=== PATIENT | female | born 1965 | race African-American/Black ===

== ENCOUNTER 2024-05-17 21:31 | Emergency (ER) | payer SELFPAY ==
[2024-05-17 21:44] VITALS: BP 136/76; PULSE 93; RESP 15; TEMP 36.5; O2SAT 97
--- NOTE | 2024-05-17 21:44 | ECG_ITS ---
Test Date: 2024-05-17 21:51:23 Measurements Intervals [place] Rate: 96 P: 35 WI: 158 QRS: 33 QRSD: 85 T: 0 QT: 350 QTc: 443 Interpretive Statements SINUS RHYTHM NONSPECIFIC ST & T-WAVE ABNORMALITY No previous ECG available for comparison Electronically Signed On 05-18-2024 22:53:03 PROJECT ECONOMIST by Mattie Brizuela M.D.
--- NOTE | 2024-05-18 00:38 | PC.NURSE ---
Pt to intake nurse I am going to bow out, I am heading home.
--- OUTSIDE RECORDS SUMMARY | 2024-05-25 02:11 | XMS_ITS | Encounter Summary ---
Author Name [facility] Organization [facility] [place] Address [address] [place] [id number] Selected Encounter This section includes the information on record at [place] for the Encounter. Date/Time Encounter Type Encounter Description Reason Pro vider Source Jun 09, 2023 12:17 PM Outpatient Encounter TELEPHONE/ANCILLARY I[facility] Encounter Template Text not used by [facility] Encounter Notes: All associated encounter notes This section contains the clinical notes associated to the Encounter. Date/Time Encounter Note(s) Provider Source Jun 10, 2023 01:29 PM ADDENDUM: LOCAL TITLE: Addendum STANDARD TITLE: ADDENDUM DATE OF NOTE: JUN 10, 2023@13:29:47 ENTRY DATE: JUN 10, 2023@13:29:47 AUTHOR: SANTANA ESTEVEZ EXP COSIGNER: URGENCY: STATUS: COMPLETED CG called and requested to withdraw their application from the [employer] application process. Please cancel appointment. /ANAHI Sylvester LCSW Mobile Home Laborer Signed: 06/10/2023 13:30 Receipt Acknowledged By: 06/10/2023 13:58 /jamarcus/ LINA BEASLEY EARTH AUGER OPERATOR --- Original Document --- 06/09/23 [facility] TELEPHONE NOTE: Scheduled and CG assessments via telephone for 06/19/23 @ 12:30pm and 1:30pm. /ANAHI Sylvester LCSW Mobile Home Laborer Signed: 06/09/2023 12:18 Receipt Acknowledged By: * AWAITING SIGNATURE * WILIAN WANG 06/09/2023 13:42 /jamarcus/ LINA BEASLEY EARTH AUGER OPERATOR SANTANA ESTEVEZ [facility] Jun 09, 2023 12:17 PM CAREGIVER CERTIFIC ATE: LOCAL TITLE: CSP TELEPHONE NOTE STANDARD TITLE: CAREGIVER CERTIFICATE DATE OF NOTE: JUN 09, 2023@12:17 ENTRY DATE: JUN 09, 2023@12:17:48 AUTHOR: SANTANA ESTEVEZ EXP COSIGNER: URGENCY: STATUS: COMPLETED CSP TELEPHONE NOTE Has ADDENDA Scheduled Singer and CG assessments via telephone for 06/19/23 @ 12:30pm and 1:30pm. /jamarcus/ ANAHI Butler LCSW Mobile Home Laborer Signed: 06/09/2023 12:18 Receipt Acknowledged By: 06/10/2023 14:01 /es/ WILIAN WANG Mobile Home Laborer 06/09/2023 13:42 /jamarcus/ LINA BEASLEY EARTH AUGER OPERATOR 06/10/2023 ADDENDUM STATUS: COMPLETED CG called and requested to withdraw their application from the [employer] application process. Please cancel appointment. /jamarcus/ ANAHI Butler LCSW Mobile Home Laborer Signed: 06/10/2023 13:30 Receipt Acknowledged By: 06/10/2023 13:58 /jamarcus/ LINA BEASLEY EARTH AUGER OPERATOR SANTANA ESTEVEZ [facility]
--- OUTSIDE RECORDS SUMMARY | 2024-05-25 02:11 | XMS_ITS | Encounter Summary ---
Author Name [facility] Organization [facility] [place] Address [address] [place] [id number] Selected Encounter This section includes the information on record at [place] for the Encounter. Date/Time Encounter Type Encounter Description Reason Provider Source Jun 10, 2023 04:03 PM Outpatient Encounter TELEPHONE/ANCILLARY SANTANA ESTEVEZ [facility] Encounter Template Text not used by [place] Encounter Notes: All associated encounter notes This section contains the clinical notes associated to the Encounter. Date/Time Encounter Note(s) Provider Source Jun 11, 2023 09:09 AM ADDENDUM: LOCAL TITLE: Addendum STANDARD TITLE: ADDENDUM DATE OF NOTE: JUN 11, 2023@09:09:05 ENTRY DATE: JUN 11, 2023@09:09:07 AUTHOR: LINA BEASLEY EXP COSIGNER: URGENCY: STATUS: COMPLETED note was entered in error /jamarcus/ LINA BEASLEY ARTIFICIAL LIMB FITTER Signed: 06/11/2023 09:09 Receipt Acknowledged By: 06/11/2023 09:13 /jamarcus/ ANAHI Butler, SIDE PULLER Electronics System Mechanic --- Original Document --- 06/10/23 CSP DENIAL NOTE: Caregiver Support Program Denial Note Denial date: 06.10.2023 Denied from the Program of Comprehensive Assistance for Family Caregivers. The denied person is the Primary Family Caregiver applicant. Name of : Alex Ace The reason for denial is the and caregiver withdrew their application. Date of verbal notification of determination: 07.11.2023 Date determination letter was mailed: to be mailed 07.12.2023 The following information was provided: Appeal and Review Options Other: CG called and advised that after further discussion with , they determined that [place] did not meet the criteria for the program and would reapply when the required more care. [id number] Length of call: 2 minutes /ANAHI Sylvester LCSW Electronics System Mechanic Signed: 06/11/2023 09:05 LINA BEASLEY [facility] Jun 10, 2023 04:00 PM CAREGIVER CERTIFIC ATE: LOCAL TITLE: CSP DENIAL NOTE STANDARD TITLE: CAREGIVER CERTIFICATE DATE OF NOTE: JUN 10, 2023@16:00 ENTRY DATE: JUN 11, 2023@09:03:45 AUTHOR: SANTANA ESTEVEZ EXP COSIGNER: URGENCY: STATUS: COMPLETED CSP DENIAL NOTE Has ADDENDA Caregiver Support Program Denial Note Denial date: 06.10.2023 Denied from the Program of Comprehensive Assistance for Family Caregivers. The denied person is the Primary Family Caregiver applicant. Name of [place]: Alex Ace The reason for denial is the and caregiver withdrew their application. Date of verbal notification of determination: 07.11.2023 Date determination letter was mailed: to be mailed 07.12.2023 The following information was provided: Appeal and Review Options Other: CG called and advised that after further discussion with , they determined that [place] did not meet the criteria for the program and would reapply when the required more care. [id number] Length of call: 2 minutes /ANAHI Sylvester LCSW Electronics System Mechanic Signed: 06/11/2023 09:05 06/11/2023 ADDENDUM STATUS: COMPLETED note was entered in error /curly BEASLEY ARTIFICIAL LIMB FITTER Signed: 06/11/2023 09:09 Receipt Acknowledged By: 06/11/2023 09:13 /ANAHI Sylvester LCSW Electronics System Mechanic 06/11/2023 ADDENDUM STATUS: COMPLETED Correction: This is the corrected note, this note was not entered in error. /ANAHI Sylvester LCSW Electronics System Mechanic Signed: 06/11/2023 09:16 SANTANA ESTEVEZ [facility]
--- OUTSIDE RECORDS SUMMARY | 2024-05-25 02:11 | XMS_ITS | Encounter Summary ---
Author Name [facility] Organization [facility] Address [address] [place] [address] Selected Encounter This section includes the information on record at [place] for the Encounter. Date/Time Encounter Type Encounter Description Reason Provider Source Jun 10, 2023 01:29 PM Outpatient Encounter TELEPHONE/ANCILLARY SANTANA ESTEVEZ [place] Encounter Template Text not used by [place]
--- OUTSIDE RECORDS SUMMARY | 2024-05-25 02:11 | XMS_ITS | Continuity of Care Document ---
Author Name [facility] Organization [facility] Care Team Providers Care Document Review Attorney Name Role Phone [facility] Unavailable Unavailable Problems Combined list of problems from Department of Defense and Veterans Affairs facilities. It does not include entries that were removed or entered in error. Problem Status Onset Date Problem Type Date of Resolution Comments Source vaginal caruncle Active Condition DoD vaginal cyst Active Condition DoD dysfunctional uterine bleeding Active Condition DoD dependent edema due to inactivity Active Condition DoD Test Negative Inactive Condition DoD noninfective leukorrhea Active Condition DoD female pelvic pain Active Condition DoD menses abnormal Active Condition DoD atypical chest pain Inactive Condition DoD atypical mycobacterial pneumonia Inactive Condition DoD upper respiratory infection Inactive Condition DoD hypokalemia Inactive Condition DoD obesity Active Condition DoD uterine neoplasm, benign leiomyoma Active Condition DoD breast lump or mass Active Condition DoD Uterine Enlargement Active Condition DoD visit for: screening exam for malignant neoplasm cervix Active Condition DoD urinary loss of control Active Condition DoD Overweight Active Condition DoD sudden redness of the skin (flushing) Active Condition DoD bacterial vaginosis Inactive Condition DoD excessive sweating Active Condition DoD disease of hair and hair follicles Active Condition DoD Laboratory Studies Active Condition DoD urinary incontinence Active Condition DoD anxiety Active Condition DoD perimenopause Active Condition DoD bronchitis Inactive Condition DoD hemorrhoids Active Condition DoD visit for: refer patient without exam or treatment Active Condition DoD blurry vision Active Condition Ophtha lmology consult placed to al for possible retinopathy DoD red blood in bowel movement (hematochezia) Inactive Condition Gastroenterol ogy consult placed. DoD visit for: screening exam malignant neoplasm breast Inactive Condition Mammogram or dered to complete screening. DoD common cold Active Condition Advised supportive and symptomatic care. Tylenol #3 based on nature/severity/progr ession of sx. Fluids, rest, hand washing. Continue Zyrtec. DoD Edema Active Condition see above DoD allergic rhinitis Active Condition Kaleb fragoso with yearly allergic rhinitis in spring time. Starting to get bad. Will give flonase and zyrtec which she states worked in the past. DoD migraine headache Active Condition DoD epicondylitis Active Condition DoD Other Physical Therapy Inactive Condition DoD skin disorders appendage hair follicle folliculitis Active Condition DoD upper respiratory infection acute Inactive Condition No decongest ant due to hTN - labile on meds. Antihistamine to see if any improvement. DoD visit for: issue repeat prescription Active Condition DoD hypertension systemic Active Condition DoD menorrhagia Active Condition DoD candidiasis vaginal Inactive Condition DoD palpitations Active Condition No abno rmalities noted on EKG, will refer to cardiology for further evaluation. DoD essential hypertension Active Condition Refilled Micard is and Hydrochlorothiazide (patient did not take this morning).BP's normally well controlled.Fasting labwork ordered.Call me for results DoD visit for: administrative purpose Inactive Condition DoD routine gynecological exam with cervical pap smear Inactive Condition PAP obtained. DoD vaginitis malik albicans Active Condition DoD depression Active Condition DoD cellulitis Inactive Condition Will brenton t for infection following bite. Diflucan for yeast infection pt gets with abx. [facility] Medications Combined list of outpatient medications from Department of Defense and Veterans Affairs facilities.Medications provided include 1) outpatient medications from the last 15 months, and 2) patient-reported medications. Medication Details Route Status Patient Instructions Prescription Expires Prescription Number Last Dispense Date Ordering Provider Order Date Order Qty Source BUPROPION XL (bupropion HCl), 150 MG, TAB ER 24H, ORAL, LUPIN PHARMACEU, 90 ea. BOTTLE Active [id number] 2023 90 Pharmac y Data Transac tion Service Facilit y dulaglutide 1.5 mg/0.5 mL subcutaneou s solution *NOTE DOSE* INJECT 1.5MG SUB-CUTA NEOUSLY EVERY 7 DAYS DIRECTED , # 2 mL, 3 total refill(s ), Acute Complet ed 07/30/2023 2.0 Ambulat ory Pharmac y fluconazole 100 mg oral tablet TAKE ONE TABLET BY MOUTH EVERY OTHER DAY DIRECTED , # 3 EA, 0 total refill(s ), Acute Complet ed 03/20/2023 3.0 Ambulat ory Pharmac y fluocinonid e 0.05% topical solution APPLY TOPICALL Y TWICE A DAY DIRECTED , # 60 mL, 11 total refill(s ), Acute Complet ed 07/30/2023 60.0 Ambulat ory Pharmac y fluticasone 50 mcg/inh nasal spray ADMINIST ER 2 SPRAYS INTO EACH NOSTRIL DAILY, # 48 g, 3 total refill(s ), Acute Complet ed 07/30/2023 48.0 Ambulat ory Pharmac y Hydrochloro thiazide (Oretic) Tablet 25 mg Oral Take orange juice or banana.T loreta with food/mil k.Avoid exposure to sun.Take or use exactly as directed . Active 06/03/2024 [id number] 2023 90 [employer] [facility] ([facility]) hydroCHLORO thiazide 25 mg tablet See Instruct ions, # 90 EA, 3 total refill(s ), Hard Stop Ordered 06/03/2024 90.0 Ambul at ory Pharmac y hydroCHLORO thiazide 25 mg tablet See Instruct ions, # 90 EA, 3 total refill(s ), Acute Complet ed 07/30/2023 90.0 Ambulat ory Pharmac y ketoconazol e 2% topical shampoo APPLY TOPICALL Y TWICE A WEEK DIRECTED , # 120 mL, 11 total refill(s ), Acute Complet ed 07/30/2023 120.0 Ambulat ory Pharmac y ketoconazol e topical 2% shampoo See Instruct ions, # 120 mL, 5 total refill(s ), Hard Stop Complet ed 01/23/2024 120.0 Ambulat ory Pharmac y metroNIDAZO LE 0.75% topical cream APPLY TOPICALL Y TWICE A DAY DIRECTED , # 45 g, 3 total refill(s ), Acute Complet ed 07/30/2023 45.0 Ambulat ory Pharmac y SKYRIZI PEN (risankizum ab-rzaa), 150 MG/ML, PEN INJCTR, SUBCUT, Kang[employer], 1 ml SYRINGE Active [id number] 2023 1 Pharmac y Data Transac tion Service Facilit y SKYRIZI PEN (risankizum ab-rzaa), 150 MG/ML, PEN INJCTR, SUBCUT, [employer], 1 ml SYRINGE Cancele d [id number] : 2023 0 Pharmac y Data Transac tion Service Facilit y SKYRIZI PEN (risankizum ab-rzaa), 150 MG/ML, PEN INJCTR, SUBCUT, [employer], 1 ml SYRINGE Active [id number] 4 2023 1 Pharmac y Data Transac tion Service Facilit y SKYRIZI PEN (risankizum ab-rzaa), 150 MG/ML, PEN INJCTR, SUBCUT, [employer], 1 ml SYRINGE Active [id number] 4 2023 1 Pharmac y Data Transac tion Service Facilit y SKYRIZI PEN (risankizum ab-rzaa), 150 MG/ML, PEN INJCTR, SUBCUT, [employer], 1 ml SYRINGE Active [id number] 3 2022 1 Pharmac y Data Transac tion Service Facilit y SKYRIZI PEN (risankizum ab-rzaa), 150 MG/ML, PEN INJCTR, SUBCUT, [employer], 1 ml SYRINGE Cancele d [id number] : 2022 0 Pharmac y Data Transac tion Service Facilit y SKYRIZI PEN (risankizum ab-rzaa), 150 MG/ML, PEN INJCTR, SUBCUT, [employer], 1 ml SYRINGE Active [id number] 2022 1 Pharmac y Data Transac tion Service Facilit y SKYRIZI PEN (risankizum ab-rzaa), 150 MG/ML, PEN INJCTR, SUBCUT, [employer], 1 ml SYRINGE Cancele d [id number] : 2022 0 Pharmac y Data Transac tion Service Facilit y tacrolimus 0.1% ointment [60g] See Instruct froylan, # 60 g, 3 total refill(s ), Hard Stop Ordered 11/13/2024 60.0 Ambul at ory Pharmac y telmisartan (U/D) 40 MG ORAL TAB Be careful if taking OTCs.Rashid e or use exactly as directed .Do not take if . Active 06/03/2024 [id number] 4 2023 90 [facility] ([facility]) telmisartan 40 mg tablet See Instruct ions, # 90 EA, 3 total refill(s ), Hard Stop Ordered 06/03/2024 90.0 Ambul at ory Pharmac y telmisartan 40 mg tablet See dose instruct ions in comments , # 90 EA, 3 total refill(s ), Acute Complet ed 07/30/2023 90.0 Ambulat ory Pharmac y Trulicity Pen 0.75 mg/0.5 mL [4EA=2mL] See dose instruct ions in comments , # 2 mL, 11 total refill(s ), Acute Complet ed 10/07/2023 2.0 Ambulat ory Pharmac y Allergies, Adverse Reactions, Alerts Combined list of allergies from Department of Defense and Veterans Affairs facilities. It does not include entries that were removed or entered in error. Substance Category Reaction Severity Reaction type Status Date Reported Comments Source sulfa drugs Propensity to adverse reactions to drug Unknown Active 6 Ambulatory [facility] Drug allergy (disorder) Unknown active 6 [facility] Immunizations Combined list of available immunizations from the Department of Defense and Veterans Affairs facilities. Immunization Series Date Given Administered By Site Reaction Lot Number CVX Code Drug Food Storeroom Clerk Status Comments Source hepatitis A adult vaccine 2003 zzLef t Arm [id number] 6 52 GlaxoSmithKli ne complet ed hepatitis A adult vaccine 01/27/04 Given Ambulat ory Pharmac y hepatitis A adult vaccine 2003 [id number] 6 52 GlaxoSmithKli ne complet ed hepatitis A adult vaccine 01/27/04 Given Ambulat ory Pharmac y hepatitis A vaccine, adult dosage 1 2003 Unknown, Provider [id number] 6 52 [employer] (SKB) complet ed hepatitis A vaccine, adult dosage [facility] Vital Signs Combined list of inpatient and outpatient Vital Signs from Department of Defense and Veterans Affairs, ranging from 12 months to all on record, depending upon the facility. Vital Sign Value Date Comments Source No data available for this section Ambulatory Pharmacy Encounters Combined list of: 1) Encounters from Department of Veterans Affairs facilities going back up to thelast 18 months. 2) Encounters from the Department of Defense facilities going back up to 280 months. Location Location Details Encounter Type Encounter Number Reason For Visit Attending Provider ADM Date DC Date Status Disposition Source [facility] ([facility]Mno tt [facility] Tm Blue) OUTPATIENT [id number] poss spider bite EMIL AQUINO 03/12 Released w/o Limitations [employer] [facility] ([facility])(S cott [facility] Tm Blue) [facility] ([facility]Sco tt [facility] Blue) OUTPATIENT [id number] high blood pressur e SIGRID HOSKINS 09/17 Released w/o Limitations [employer] [facility] ([facility]S cott [facility] Tm Blue) [facility](Pr imary Care QU) OUTPATIENT [id number] HAND AND FEET PAIN WITH SWELLIN G NELLY RUBY 08/09 Released w/o Limitations [facility]( Primary Care QU) [facility] TELE CONSULT [id number] MEDICAT ION ISSUE NELLY RUBY 08/12 [facility]( Primary Care QU) [facility](Pr imary Care QU) OUTPATIENT [id number] med refill SPRING LUJAN 09/20 Released w/o Limitations [facility]( Primary Care QU) [facility](Pr imary Care QU) OUTPATIENT [id number] vaginal d/c NELLY RUBY 12/16 Released w/o Limitations [facility]( Primary Care QU) [facility]) OUTPATIENT [id number] possibl e bacteri al vaginos is x 2days JACE BARAHONA 03/12 Released w/o Limitations [facility]( Primary Care QU) [facility](Pr imary Care QU) OUTPATIENT [id number] ANNUAL PAP/ P.E. KISHORE STORM 03/26 Released w/o Limitations [facility]( Primary Care QU) [facility](Pr imary Care QU) TELE CONSULT [id number] med issues PRIETO BOLDEN 03/31 [facility]( Primary Care QU) [facility](Pr imary Care QU) OUTPATIENT [id number] BP MEDICAT ION REFILL DALIA MCCARTHY 04/14 Released w/o Limitations [facility]( Primary Care QU) [facility](Pr imary Care QU) OUTPATIENT [id number] POSS. YEAST INFECTI ON-ITCH /DISCHA JACE LAUREN 05/14 Released w/o Limitations [facility]( Primary Care QU) [facility](Pr imary Care QU) OUTPATIENT [id number] [place] ANTON CONCERN S PER PT ALESHA STEIN A 06/23 Released w/o Limitations [facility]( Primary Care QU) [facility](Pr imary Care QU) OUTPATIENT [id number] COUGH EVELYN RANGEL A 07/26 Released w/o Limitations [facility]( Primary Care QU) [facility](Pr imary Care QU) OUTPATIENT [id number] painful nodule left axilla ALESHA STEIN A 08/01 Released w/o Limitations [facility]( Primary Care QU) [facility] [place]) OUTPATIENT [id number] EPICOND ELISAPARVEEN TODD HARPER 08/19 Released w/o Limitations [facility]( [facility] [place] [facility]) [facility] [place]) OUTPATIENT [id number] TODD HARPER 09/08 Released w/o Limitations [facility]( [facility] [place] [facility]) [facility] ([facility])(Amb Care Clinic) OUTPATIENT [id number] C/O ASENCIO's not migrane s W#[phone] OTDD MACK 01/08 Released w/o Limitations [facility] ([facility])(A Care Clinic[facility] ([facility]Sco tt [facility] Fam Res Tm Green) OUTPATIENT [id number] BP, MEDICAT ION W#[phone] PABLO STERLING 01/14 Released w/o Limitations [employer] [facility] ([facility])(S cott [facility] Fam Res Tm Green) [facility] ([facility])(Fam leo Practice Non-GME FHI1) OUTPATIENT [id number] infecti on MERARI BRENNAN A 07/08 Released w/o Limitations [facility] ([facility])(F amily Practic e Non-GME FHI1) [facility]Sco tt [facility] Tm Blue) OUTPATIENT [id number] re-eval meds for high bp GRISEL STEPHENSON 08/06 Released w/o Limitations [address] [place] [address] [facility] ([facility]S cott [facility] Tm Blue) [address] [place] [address] [facility]Sco tt [facility] Fam Res Tm Green) OUTPATIENT [id number] both eyes-ac he,pres sure/co ugh/con ANGELICA Olmedo 09/02 Released w/o Limitations [address] [place] [address] [facility] ([facility]S cott [facility] Fam Res Tm Green) [address] [place] [address] [facility] ([facility]Sco tt [facility] Fam Res Tm Green) OUTPATIENT [id number] annual pap and annual physica l check up....[phone] ALEXIS NOEL 01/12 Released w/o Limitations [address] [place] [address] [facility] ([facility]S cott [facility] Fam Res Tm Green) [address] [place] [address] [facility]Sco tt [facility] Fam Res Tm Green) TELE CONSULT [id number] ER SANDRA Valle 06/[address] [place] [address] [facility] ([facility]S cott [facility] Fam Res Tm Green) [address] [place] [address] [facility] ([facility]Sco tt [facility] Fam Res Tm Green) TELE CONSULT [id number] ALEXIS Kovacs 06/[address] [place] [address] [facility] ([facility]S cott [facility] Fam Res Tm Green) [address] [place] [address] [facility] ([facility]Sco tt [facility] Fam Res Tm Green) OUTPATIENT [id number] female issues OTDD SALMON 07/14 Released w/o Limitations [address] [place] [address] [facility] ([facility]S cott [facility] Fam Res Tm Green) [address] [place] [address] [facility] [employer] [facility]Sco tt [facility] FAM[facility] Tm Blue) TELE CONSULT [id number] Discuss Labwork TODD SALMON 07/[address] [place] [address] [facility] ([facility])(S cott [facility] Tm Blue) [address] [place] [address] [facility] ([facility])(Sco tt [facility] Fam Res Tm Green) TELE CONSULT [id number] med changes ALEXIS NOEL 09/[address] [place] [address] [facility] ([facility])(S cott OF Fam Res Tm Green) [address] [place] [address] [facility] ([facility]Sco tt [facility] Fam Res Tm Green) OUTPATIENT [id number] anxiety /bp check [phone] TRENT, RODOLFO R 01/06 Released w/o Limitations [address] [place] [address] [facility] ([facility])(S cott OF Fam Res Tm Green) [address] [place] [address] [facility] ([facility]Sco tt [facility] Tm Blue) TELE CONSULT [id number] lab results TRENT, RODOLFO R 01/[address] [place] [address] [facility] ([facility])(S cott OF [facility] Tm Blue) [address] [place] [address] [facility] ([facility]Sco tt [facility] Tm Blue) OUTPATIENT [id number] Ingrown hair on scalp [phone] GRISEL STEPHENSON 02/01 Released w/o Limitations [address] [place] [address] [facility] ([facility])(S cott [facility] Tm Blue) [address] [place] [address] [facility] ([facility])(Sco tt [facility] Fam Res Tm Green) TELE CONSULT [id number] med refill TRENT, RODOLFO R 03/[address] [place] [address] [facility] ([facility])(S cott OF Fam Res Tm Green) [address] [place] [address] [facility] ([facility]Sco tt [facility] Tm Blue) OUTPATIENT [id number] Night sweats [phone] ADAIR CHANCE ADAIR 05/16 Released w/o Limitations [address] [place] [address] [facility] ([facility]S cott [facility] Tm Blue) [address] [place] [address] [facility] ([facility]Sco tt [facility] Fam Res Tm Green) OUTPATIENT [id number] blurr vision - frequen t urine breaks - [phone] TRENT, RODOLFO R 06/09 Released w/o Limitations [address] [place] [address] [facility] ([facility]S cott [facility] Fam Res Tm Green) [address] [place] [address] [facility] ([facility]Sco tt [facility] Fam Res Tm Green) OUTPATIENT [id number] poss yeast infecti on TRENT, RODOLFO R 07/11 Released w/o Limitations [address] [place] [address] [facility] ([facility]S cott [facility] Fam Res Tm Green) [facility] [employer] ([facility]Sco tt [facility] Fam Res Tm Green) TELE CONSULT [id number] request JOSE Houston 08/01 [facility] ([facility]S cott [facility] Fam Res Tm Green) [address] [place] [address] [employer] ([facility]Sco tt [facility] Fam Res Tm Green) TELE CONSULT [id number] med refill RODOLFO TRENT 08/10 [facility] ([facility]S cott [facility] Fam Res Tm Green) [address] [place] [address] [employer] ([facility])(Seed Cutter ecology) OUTPATIENT [id number] URINARY INCONTI DELROY MORALES 09/12 Released w/o Limitations [address] [place] [address] Group [facility] ([facility])(G ynecolo gy) [address] [place] [address] [employer] ([facility])(Seed Cutter ecology) OUTPATIENT [id number] ANNUAL WWE DELROY PUCKETT 10/20 Released w/o Limitations [address] [place] [address] Group [employer] [facility] ([facility])(G ynecomisti gy) [address] [place] [address] [employer] ([facility]Sco tt [facility] Tm Blue) TELE CONSULT [id number] Blood pressur e high - JOSE Sims 10/[address] [place] [address] Group [employer] [facility] ([facility])(S cott [facility] Tm Blue) [facility] [employer] [facility]Ob/ Seed Cutter) TELE CONSULT [id number] r breast lump DELROY PUCKETT 10/23 [facility] [employer] ([facility])(O b/Seed Cutter) [facility] [employer] ([facility]Sco tt [facility] Fam Res Tm Green) OUTPATIENT [id number] f/u HTN MATILDE SONI 10/27 Released w/o Limitations [address] [place] [address] [employer] ([facility]S cott [facility] Fam Res Tm Green) [facility] [employer] ([facility])(Ob/ Seed Cutter) TELE CONSULT [id number] Results CAROLINE KHANNA 11/07 [facility] [employer] ([facility])(O b/Seed Cutter) [facility] [employer] ([facility]Sco tt [facility] Fam Res Tm Green) TELE CONSULT [id number] Request ing medicat ion change/ blood pressur JOSE Johnson 12/25 [facility] ([facility])(S cott OF Fam Res Tm Green) [facility] ([facility]Sco tt [facility] Fam Res Tm Green) OUTPATIENT [id number] f/u HTN/med ication KATHY NIX 01/11 Released w/o Limitations [address] [place] [address] Group [employer] [facility] ([facility])(S cott OF Fam Res Tm Green) [address] [place] [address] Group [facility] ([facility]Sco tt [facility] Fam Res Tm Green) TELE CONSULT [id number] needs bmp in 3mos KATHY NIX 03/[address] [place] [address] Group [employer] [facility] ([facility]S cott [facility] Fam Res Tm Green) [address] [place] [address] [employer] ([facility]Sco tt [facility] Fam Res Tm Green) TELE CONSULT [id number] T Con for F/U appt Dr Nix Phone [phone] home [phone] CHARLES HERRMANN 03/26 Referred for Appointment [facility] ([facility]S cott OF Fam Res Tm Green) [address] [place] [address] [employer] [facility] ([facility]Sco tt [facility] Fam Res Tm Green) TELE CONSULT [id number] T con for F/U appt Dr Choi phone [phone] or [phone] CHARLES HERRMANN 04/17 Referred for Appointment [facility] ([facility])(S cott OF Fam Res Tm Green) [facility] ([facility] [facility]) OUTPATIENT [id number] f/u meds... [id number] YAYO DENNIS 06/08 Released w/o Limitations [address] [place] [address] Group [employer] [facility] ([facility]S cott OF [facility]) [address] [place] [address] [facility]Sco tt [facility] [place]) OUTPATIENT [id number] cough [id number] IZABELLA YOUNGER 09/21 Released w/o Limitations [address] [place] [address] Group [employer] [facility] ([facility] [place] [place]S cott [facility]) [address] [place] [address] [facility]Sco tt [facility] [place]) TELE CONSULT [id number] Refused appt/Wh doris/betzy ABBOTTRASHIDA LEAKiarra Little 10/[address] [place] [address] [employer] [facility]S cott [facility] [address] [place] [address] [employer] [facility]Sco tt [facility]) OUTPATIENT [id number] f/u cough [phone] JULIAN CARTWRIGHT E 10/02 Released w/o Limitations [address] [place] [address] [employer] [facility]S cott [facility]) [address] [place] [address] [employer] [facility]Sco tt [facility]) OUTPATIENT [id number] Well women's exam [phone] QUANG GUZMAN 12/18 Released w/o Limitations [address] [place] [address] [employer] ([facility]S cott [facility]) [address] [place] [address] [employer] [facility]Seed Cutter ecology) OUTPATIENT [id number] URINARY INCONTI MEE GONSALEZ 01/09 Released w/o Limitations [address] [place] [address] [employer] [facility])(G ynecolo gy) [address] [place] [address] [employer] [facility]Seed Cutter ecology) OUTPATIENT [id number] F/u pap and EMB per Dr Leos. ph#[phone] CAMILLE KIRAN 03/04 Released w/o Limitations [address] [place] [address] [employer] [facility]G ynecolo gy) [address] [place] [address] [employer] [facility]Sco tt [facility]) OUTPATIENT [id number] swollen feet - [id number] YAYO DENNIS 03/11 Released w/o Limitations [address] [place] [address] [employer] [facility]S cott [facility]) [address] [place] [address] [employer] [facility])(Ob/ Seed Cutter) TELE CONSULT [id number] results of testing CAMILLE KIRAN 03/[address] [place] [address] [employer] ([facility])(O b/Seed Cutter) [address] [place] [address] [employer] ([facility]Sco tt [facility]) TELE CONSULT [id number] f/u labs QUANG GUZMAN 03/[address] [place] [address] [facility]pp [facility]S cott [facility]) [address] [place] [address] [facility]Sco tt [facility] [place]) TELE CONSULT [id number] regardi ng lab results Long cad tlt ALANIS DENNISАННА Plunkett 03/[address] [place] [address] [employer]pp B ([facility]S cott [facility]) [address] [place] [address] [facility] B [facility]Sco tt [facility]) TELE CONSULT [id number] Notes Entered by: DAWNA GARNETT 24 Apr 2011 0758 ------- ------- ------- ----- JARED MCKEON 04/[address] [place] [address] Tripp [facility])(S cott [facility]) [address] [place] [address] [facility]Sco tt [facility]) OUTPATIENT [id number] cyst in vaginal area [phone] ABUNDIO VILLATORO 04/25 Released w/o Limitations [address] [place] [address] [facility])(S cott [facility] [address] [place] [address] [facility]Sco tt [facility]) TELE CONSULT [id number] Notes Entered by: Tamy GUZMAN 03 Jul 2011 1737 ------- ------- ------- ------- -- F/u flex sig 06/25/11 QUANG GUZMAN 07/[address] [place] [address] Tripp [facility]S cott [facility]) [facility] Outpatient Encounter [id number] 06/09 [facility] Outpatient Encounter [id number] PILO ESTEVEZ 06/10 [facility] Outpatient Encounter [id number] PILO ESTEVEZ 06/10 [facility] Procedures Combined list of: 1) Procedures from Department of Veterans Affairs facilities going back up to thelast 18 months, not all VA non-surgical procedures are included; 2) All procedures from the Department of Defense facilities. Procedure Procedure Type Code Date Perfomer Comments Sourc e SMEAR, PRIMARY SOURCE WITH INTERPRETATION; WET MOUNT FOR INFECTIOUS AGENTS (EG, SALINE, ISATU INK, SHAHEED PREPS) 011 [facility] INSERTION OF NON-INDWELLING BLADDER CATHETER (EG, STRAIGHT CATHETERIZATION FOR RESIDUAL URINE) 011 DoD TELE ASSESS & MGT SRV PROV QUAL NONPHYS HLTH CARE PRO TO EST PAT,PARENT,GUARD NOT ORIG REL ASSESS & MGT SRV PROV W/IN PREV 7 DAYS NOR LEAD ASSESS & MGT SRV/PX W/IN NXT 24 HR/SOON APT;5-10 MIN MED DIS 011 DoD TELE ASSESS & MGT SRV PROV QUAL NONPHYS HLTH CARE PRO TO EST PAT,PARENT,GUARD NOT ORIG REL ASSESS & MGT SRV PROV W/IN PREV 7 DAYS NOR LEAD ASSESS & MGT SRV/PX W/IN NXT 24 HR/SOON APT;5-10 MIN MED DIS 010 DoD TELE ASSESS & MGT SRV PROV QUAL NONPHYS HLTH CARE PRO TO EST PAT,PARENT,GUARD NOT ORIG REL ASSESS & MGT SRV PROV W/IN PREV 7 DAYS NOR LEAD ASSESS & MGT SRV/PX W/IN NXT 24 HR/SOON APT;5-10 MIN MED DIS 010 DoD TELE ASSESS & MGT SRV PROV QUAL NONPHYS HLTH CARE PRO TO EST PAT,PARENT,GUARD NOT ORIG REL ASSESS & MGT SRV PROV W/IN PREV 7 DAYS NOR LEAD ASSESS & MGT SRV/PX W/IN NXT 24 HR/SOON APT;5-10 MIN MED DIS 010 DoD TELE ASSESS & MGT SRV PROV QUAL NONPHYS HLTH CARE PRO TO EST PAT,PARENT,GUARD NOT ORIG REL ASSESS & MGT SRV PROV W/IN PREV 7 DAYS NOR LEAD ASSESS & MGT SRV/PX W/IN NXT 24 HR/SOON APT;5-10 MIN MED DIS 010 DoD SCREENING PAPANICOLAOU SMEAR; OBTAINING, PREPARING AND CONVEYANCE OF CERVICAL OR VAGINAL SMEAR TO LABORATORY [facility] TELE ASSESS & MGT SRV PROV QUAL NONPHYS HLTH CARE PRO TO EST PAT,PARENT,GUARD NOT ORIG REL ASSESS & MGT SRV PROV W/IN PREV 7 DAYS NOR LEAD ASSESS & MGT SRV/PX W/IN NXT 24 HR/SOON APT;5-10 MIN MED DIS [facility] TISSUE EXAMINATION BY SHAHEED SLIDE OF SAMPLES FROM SKIN, HAIR, OR NAILS FOR FUNGI OR ECTOPARASITE OVA OR MITES (EG, SCABIES) [facility] INFUSION, NORMAL SALINE SOLUTION, 250 CC [facility] SCREENING PAPANICOLAOU SMEAR; OBTAINING, PREPARING AND CONVEYANCE OF CERVICAL OR VAGINAL SMEAR TO LABORATORY [facility] SMEAR, PRIMARY SOURCE WITH INTERPRETATION; WET MOUNT FOR INFECTIOUS AGENTS (EG, SALINE, ISATU INK, SHAHEED PREPS) [facility] INJECTION, KETOROLAC TROMETHAMINE, PER 15 MG [facility] INJECTION, HYDROMORPHONE, UP TO 4 MG [facility] ALL POTASSIUM HYDROXIDE (SHAHEED) PREPARATIONS [facility] OPHTHALMOLOGICAL SERVICES: MEDICAL EXAMINATION AND EVALUATION, WITH INITIATION OR CONTINUATION OF DIAGNOSTIC AND TREATMENT PROGRAM; INTERMEDIATE, ESTABLISHED PATIENT [facility] PREPARATION OF REPORT OF PATIENT'S PSYCHIATRIC STATUS, HISTORY, TREATMENT, OR PROGRESS (OTHER THAN FOR LEGAL OR CONSULTATIVE PURPOSES) FOR OTHER INDIVIDUALS, AGENCIES, OR INSURANCE CARRIERS [facility] ELECTROCARDIOGRAM, ROUTINE ECG WITH AT LEAST 12 LEADS; WITH INTERPRETATION AND REPORT [facility] ELECTROCARDIOGRAM, ROUTINE ECG WITH AT LEAST 12 LEADS; WITH INTERPRETATION AND REPORT [facility] DETERMINATION OF REFRACTIVE STATE [facility] SELF-CARE/HOME MANAGMENT TRAIN (EG,ACT OF DAILY LIVING (ADL) &COMPENSAT TRAIN,MEAL PREPARATION,SAFETY PROCS,AND INSTRUCT IN USE OF ASST TECHNOLOGY DEV/ADPT EQUIP) DIR ONE-ON-ONE CONT,EA 15 MINUTES [facility] THERAPEUTIC PROCEDURE, 1 OR MORE AREAS, EACH 15 MINUTES; THERAPEUTIC EXERCISES TO DEVELOP STRENGTH AND ENDURANCE, RANGE OF MOTION AND FLEXIBILITY [facility] ELECTROCARDIOGRAM, ROUTINE ECG WITH AT LEAST 12 LEADS; INTERPRETATION AND REPORT ONLY [facility] SCREENING PAPANICOLAOU SMEAR; OBTAINING, PREPARING AND CONVEYANCE OF CERVICAL OR VAGINAL SMEAR TO LABORATORY 006 DoD Vaginal SHAHEED Prep Vaginal SHAHEED Prep [phone] QIANA CAMILLE [facility] Vaginal Wet [place] Vaginal [place] [phone] QIANA CAMILLE [facility] Biopsy Endometrial Biopsy Endometrial 23627 05/07 011 CAMILLE KIRAN [facility] Urethral Catheterization Straight (Non-Balloon) Urethral Catheterization Straight (Non-Balloon) [phone] MEE LEOS [facility] Non-Physician Phone Call To Patient/Provider Brief (5-10min) Non-Physician Phone Call To Patient/Provider Brief (5-10min) [phone] JOSE REVELES [facility] Non-Physician Phone Call To Patient/Provider Brief (5-10min) Non-Physician Phone Call To Patient/Provider Brief (5-10min) [phone] CHARLES HERRMANN [facility] Non-Physician Phone Call To Patient/Provider Brief (5-10min) Non-Physician Phone Call To Patient/Provider Brief (5-10min) [phone] KATHY NIX [facility] Non-Physician Phone Call To Patient/Provider Brief (5-10min) Non-Physician Phone Call To Patient/Provider Brief (5-10min) [phone] JOSE REVELES [facility] Non-Physician Phone Call To Patient/Provider Brief (5-10min) Non-Physician Phone Call To Patient/Provider Brief (5-10min) [phone] JOSE REVELES [facility] Screening papanicolaou smear; obtaining, preparing and conveyance of cervical or vaginal smear to laboratory 010 DELROY PUCKETT [facility] Non-Physician Phone Call To Patient/Provider Brief (5-10min) Non-Physician Phone Call To Patient/Provider Brief (5-10min) [phone] JOSE REVELES Vaginal SHAHEED Prep Vaginal SHAHEED Prep [phone] MERARI BRENNAN Vaginal [place] Vaginal [place] [phone] MERARI BRENNAN [facility] Physical Therapy Service Re-Evaluation Physical Therapy Service Re-Evaluation 19352 TODD HARPER [facility] Patient Training And Self-Care Skills Patient Training And Self-Care Skills 71963 TODD HARPER [facility] Modalities Iontophoresis Modalities Iontophoresis 13080 TODD HARPER [facility] Physical Therapy Service Evaluation Physical Therapy Service Evaluation 93338 TODD HARPER [facility] Patient Training And Self-Care Skills Patient Training And Self-Care Skills 48023 TODD HARPER [facility] Physical Therapy: ___ Se ion Segments, 15 Minutes Each Physical Therapy: ___ Session Segments, 15 Minutes Each 22401 TODD HARPER [facility] ECG Interpretation And Report Only ECG Interpretation And Report Only [id number] JOSE JUAN MCCARTHY [facility] Screening papanicolaou smear; obtaining, preparing and conveyance of cervical or vaginal smear to laboratory KISHORE STORM [facility] Cervical Culture Chlamydia trachomatis Cervical Culture Chlamydia trachomatis 10691 KISHORE STORM [facility] Cervical Culture Nei eria gonorrhoeae Cervical Culture Neisseria gonorrhoeae 12508 KISHORE STORM [facility] No data available for this section Ambulato ry Pharmacy Social History Combined list of available smoking, tobacco, and other social history from Department of Defense and Veterans Affairs facilities. Social History Type Response Date Comment Sour e This section is an empty social history section. DoD Assessment and Plan Combined list of future care activities from Department of Defense and Veterans Affairs facilities (e.g., assessment and plan notes, appointments, orders, and referrals). Additional future care activities may be listed in the Plan of Care section. Result Assessment and Plan Date Source Assessment and Plan No data available for this section 05/25/2024 Ambulatory Pharmacy Functional Status Combined list of recent functional and cognitive assessments recorded at Department of Defense and Veterans Affairs ([facility]).[facility] Functional Mingo Measurement (FIM) Scale: 1 = Total Assistance (Subject = 0% +), 2 = Maximal Assistance (Subject = 25% +), 3 = Moderate Assistance (Subject = 50% +), 4 = Minimal Assistance (Subject = 75% +), 5 = Supervision, 6 = Modified Mingo (Device), 7 = Complete Mingo (Timely, Safely). Assessment Date/Time Source Assessment Type Assessment Skill Assessment Score Assessment Details No data available for this section
--- OUTSIDE RECORDS SUMMARY | 2024-05-25 02:16 | XMS_ITS | Clinical Summary ---
Author Organization [facility] [place] [facility] Address [address] [place] [address] Care Team Providers Care Billet Grinder Name Role Phone Christ Hu Primary Care Provider [phone] Allergies Active Allergy Reactions Criticality Noted Date Comments Sulfa (Sulfonamide Antibiotics) Rash Reaction: Rash, Medications multivitamin (MULTIPLE VITAMINS DAILY ORAL) Rx: Multi Vitamin Daily Active ALPRAZolam (Xanax) 0.25 mg tablet Take 1 tablet (0.25 mg total) by mouth daily as needed for anxiety 15 tablet 2 Active albuterol HFA (Proventil HFA) 90 mcg/actuation inhaler Inhale 1 puff every 6 (six) hours as needed (for wheezing) 3 each 3 2 Active ibuprofen (ADVIL,MOTRIN) 800 mg tablet Take 1 tablet (800 mg total) by mouth every 6 (six) hours as needed (pain) 90 tablet 1 2 Active fluconazole (DIFLUCAN) 100 mg tablet Take 1 tablet (100 mg total) by mouth every other day 3 tablet 2 Active clobetasoL (TEMOVATE) 0.05 % external solution 3 Active tazarotene (AVAGE) 0.1 % cream APPLY TOPICALLY TO THE AFFECTED AREA EVERY NIGHT 3 Active triamcinolone (KENALOG) 0.1 % cream 2 Active fluticasone propionate (Flonase Allergy Relief) 50 mcg/actuation nasal spray Administer 2 sprays into each nostril daily 3 each 3 3 Active metroNIDAZOLE (METROCREAM) 0.75 % cream Apply topically 2 (two) times a day 45 g 3 3 Active ketoconazole (NIZORAL) 2 % shampoo Apply topically 2 (two) times a week 120 mL 11 3 Active fluocinonide (LIDEX) 0.05 % external solution Apply topically 2 (two) times a day 60 mL 11 3 Active dulaglutide (TRULICITY) 0.75 mg/0.5 mL pen injector Inject 0.5 mL (0.75 mg total) under the skin every 7 days Please give 90 days 6 mL 3 3 Active buPROPion XL (WELLBUTRIN XL) 150 mg 24 hr tablet Take 1 tablet (150 mg total) by mouth every morning 90 tablet 4 3 Active nitrofurantoin monohydrate (MACROBID) 100 mg capsuleIndicatio ns:Urinary Tract/Genitourin karthikeyan Infection Take 1 capsule (100 mg total) by mouth 2 (two) times a day 10 capsule 3 Active Skyrizi 150 mg/mL pen injector 3 Active fluocinolone (DERMA-SMOOTH/FS ) 0.01 % oil 3 Active hydroCHLOROthiaz janiya (HYDRODIURIL) 25 mg tablet Take 1 tablet (25 mg total) by mouth daily 90 tablet 3 4 Active telmisartan (Micardis) 40 mg tablet Take 1 tablet (40 mg total) by mouth daily 90 tablet 3 4 Active Active Problems Problem Noted Date Diagnosed Date Allergic rhinitis 06/04/2023 Overview (06/04/2023): Patient with yearly allergic rhinitis in spring time. Starting to get bad. Will give flonase and zyrtec which she states worked in the past. Breast lump or mass 06/04/2023 Candidiasis of vagina 06/04/2023 Caruncle of vagina 06/04/2023 Common cold 06/04/2023 Overview (06/04/2023): Advised supportive and symptomatic care. Tylenol #3 based on nature/severity/progression of sx. Fluids, rest, hand washing. Continue Zyrtec. Dependent edema 06/04/2023 Depression 06/04/2023 Dysfunctional uterine bleeding 06/04/2023 Edema of both lower extremities 06/04/2023 Overview (06/04/2023): see above Excessive sweating 06/04/2023 Female pelvic pain 06/04/2023 Flushing 06/04/2023 Disease of hair and hair follicles 06/04/2023 Folliculitis 06/04/2023 Hazy vision 06/04/2023 Overview (06/04/2023): Ophthalmology consult placed to eval for possible retinopathy Hemorrhoids 06/04/2023 Leiomyoma of uterus 06/04/2023 Leukorrhea 06/04/2023 Menorrhagia 06/04/2023 Menstrual disorder 06/04/2023 Migraine headache 06/04/2023 Overweight 06/04/2023 Palpitations 06/04/2023 Overview (06/04/2023): No abnormalities noted on EKG, will refer to cardiology for further evaluation. Severe acute respiratory syn drome coronavirus 2 (SARS-CoV-2) test result unknown 06/04/2023 Urinary incontinence 06/04/2023 Uterine enlargement 06/04/2023 Vaginal cyst 06/04/2023 Essential hypertension 06/04/2023 Overview (06/04/2023): Refilled Micardis and Hydrochlorothiazide (patient did not take this morning). BP's normally well controlled. Fasting labwork ordered. Call me for results Hypertension 06/04/2023 Anxiety 06/04/2023 Psoriasis 07/31/2022 Assessment & Plan (07/31/2022 2:44 PM CDT): Seeing derm Rash 02/25/2022 Assessment & Plan (02/25/2022 2:26 PM CDT): This is under both breasts and severe I am going to treat her with ketoconazole cream nystatin powder and Diflucan if this persists due to her pendulous breasts we may need to discuss breast reduction Cough 10/03/2021 Assessment & Plan (10/04/2021 4:20 PM CDT): Patient's exam is normal I suspect she just been chronically coughing am going to try a short course of steroids and cough suppressants if this does not work we discussed getting a chest x-ray or CT Routine general medical exam ination at a [facility] 06/14/2019 Assessment & Plan (12/19/2020 3:14 PM CDT): Healthcare maintenance updated, colonoscopy up-to-date, mammogram ordered. Foot pain, bilateral 03/18/2019 Stress 09/30/2018 EIC (epidermal inclusion cyst) 09/30/2018 Rosacea 09/30/2018 Assessment & Plan (08/21/2021 11:30 AM CDT): Medications as ordered Acute right-sided thoracic back pain 08/26/2017 Overview (03/18/2019): As above Lumbago with sciatica, left side 08/26/2017 Overview (03/18/2019): X-ray is negative to my reading, we are going to start with physical therapy further evaluation and treatment based on response to treatment. Assessment & Plan (08/21/2021 11:29 AM CDT): Due to breast Assessment & Plan (05/24/2021 6:29 AM PARTITION ASSEMBLER): I strongly suspect this is due to her large pendulous breasts which is also causing bra strap in am going to have her set up for evaluation for breast reduction Lumbago with sciatica, right side 08/26/2017 Overview (03/18/2019): As above Multiple allergies 08/26/2017 Overview (03/18/2019): This is controlled with Flonase. Prescription was ordered today follow-up 1 year. BMI 39.0-39.9,adult 06/09/2017 Assessment & Plan (03/05/2023 7:34 AM CDT): As above Osteoarthritis 06/09/2017 Situational anxiety 06/09/2017 Assessment & Plan (06/04/2023 2:34 PM PARTITION ASSEMBLER): She is retiring and I am taking her off work as I am concerned stress is too much and not worth her mental health Assessment & Plan (03/05/2023 7:34 AM CDT): Medications as ordered, f/u 6 weeks, may call for letter to be off for a couple weeks due to anxiety Assessment & Plan (07/31/2022 2:43 PM CDT): Controlled with as needed meds Assessment & Plan (02/25/2022 2:26 PM CDT): This is well controlled continue p.r.n. medication Assessment & Plan (10/04/2021 4:21 PM CDT): Patient stopped her medications states his she is doing well we agreed to follow there is no SI HI Assessment & Plan (08/21/2021 11:30 AM CDT): controlled Assessment & Plan (05/24/2021 6:29 AM PARTITION ASSEMBLER): This is currently controlled will continue current meds and follow up routine Assessment & Plan (12/19/2020 3:15 PM CDT): Images from the original note were not included. This is not controlled, I am going to start 25 mg of Zoloft and will follow-up in 6 weeks The pharmacologic and nonpharmacologic treatment of anxiety/depression were discusses with the patient. Included was a discussion of the current treatment regimens and their proposed mechanism of action concerning brain chemistry. Discussed the role of counseling as an adjunct to medications should we agree to pursue this. The patient is non-suicidal, and agrees to inform us of any change in this status follow up in 4-6 weeks- sooner if any problems Dysphagia 08/16/2016 Assessment & Plan (10/04/2021 4:20 PM CDT): This is well controlled will continue to follow continue current med Assessment & Plan (08/21/2021 11:29 AM CDT): resolved Assessment & Plan (05/24/2021 6:29 AM PARTITION ASSEMBLER): This is currently not an issue continue to watch diet follow-up routine Assessment & Plan (12/19/2020 3:14 PM CDT): This is currently controlled, will continue to follow Obesity, unspecified obesity severity, unspecified obesity type 08/16/2016 Assessment & Plan (03/05/2023 7:33 AM CDT): Can not get approved for ozempic, trying trulicity off label and understands that and is doing well Assessment & Plan (07/31/2022 2:43 PM CDT): Continue trulicity Assessment & Plan (08/21/2021 11:29 AM CDT): Sending to Dr Law Assessment & Plan (05/24/2021 6:29 AM PARTITION ASSEMBLER): Healthy diet exercise and weight reduction Sinusitis 06/10/2016 Hypertension 11/16/2013 Overview (08/24/2016): HTN Assessment & Plan (06/04/2023 2:33 PM PARTITION ASSEMBLER): Images from the original note were not included. This is a stable chronic condition. Monitor blood pressure, call if out of parameters as we discussed. Low sodium and caffeine diet. baby asa as discussed if applicable. Diet, exercise and weight reduction. Labs as ordered. F/U routine Assessment & Plan (03/05/2023 7:33 AM CDT): Images from the original note were not included. This is a stable chronic condition. Monitor blood pressure, call if out of parameters as we discussed. Low sodium and caffeine diet. baby asa as discussed if applicable. Diet, exercise and weight reduction. Labs as ordered. F/U routine Assessment & Plan (07/31/2022 2:43 PM CDT): Images from the original note were not included. This is a stable chronic condition. Monitor blood pressure, call if out of parameters as we discussed. Low sodium and caffeine diet. baby asa as discussed if applicable. Diet, exercise and weight reduction. Labs as ordered. F/U routine Assessment & Plan (04/02/2022 3:58 PM PARTITION ASSEMBLER): Images from the original note were not included. This is a stable chronic condition. Monitor blood pressure, call if out of parameters as we discussed. Low sodium and caffeine diet. baby asa as discussed if applicable. Diet, exercise and weight reduction. Labs as ordered. F/U routine Assessment & Plan (02/25/2022 2:26 PM CDT): This is a stable chronic condition. Monitor blood pressure, call if out of parameters as we discussed. Low sodium and caffeine diet. baby asa as discussed if applicable. Diet, exercise and weight reduction. Labs as ordered. F/U routine Assessment & Plan (10/04/2021 4:20 PM CDT): This is a stable chronic condition. Monitor blood pressure, call if out of parameters as we discussed. Low sodium and caffeine diet. baby asa as discussed if applicable. Diet, exercise and weight reduction. Labs as ordered. F/U routine Assessment & Plan (08/21/2021 11:29 AM CDT): Images from the original note were not included. This is a stable chronic condition. Monitor blood pressure, call if out of parameters as we discussed. Low sodium and caffeine diet. baby asa as discussed if applicable. Diet, exercise and weight reduction. Labs as ordered. F/U routine Assessment & Plan (05/24/2021 6:29 AM PARTITION ASSEMBLER): This is a stable chronic condition. Monitor blood pressure, call if out of parameters as we discussed. Low sodium and caffeine diet. baby asa as discussed if applicable. Diet, exercise and weight reduction. Labs as ordered. F/U routine Assessment & Plan (12/19/2020 3:14 PM CDT): This is a stable chronic condition. Monitor blood pressure, call if out of parameters as we discussed. Low sodium and caffeine diet. baby asa as discussed if applicable. Diet, exercise and weight reduction. Labs as ordered. F/U routine Immunizations Name Administration Dates Next Due Hep A, Adult 01/27/2004 Influenza, Unspecified 05/04/2023(Deferr ed: Patient decision),03/05/2023(Deferred: Patient Refused),04/02/2022(Deferred: Patient decision),04/02/2022(Deferred: Patient Refused),05/23/2021(Deferred: Patient Refused),03/23/2021(Deferred: Patient Refused),02/25/2021(Deferred: Patient Refused),02/17/2020(Deferred: Patient Refused),05/19/2018(Deferred: Patient decision) Pfizer SARS-CoV-2 Monovalent Vaccination (12+ Yrs) PURPLE 12/03/2020,11/12/2020 Surgical History Surgery Date Site/Laterality Comments COLECTOMY Colectomy OTHER SURGICAL HISTORY lump in breast: lumpectomy TOTAL ABDOMINAL HYSTERECTOMY Hysterectomy, total --40's SECTION BREAST BIOPSY 09/21/2015 Right BREAST BIOPSY 09/21/2015 Left OOPHORECTOMY Bilateral 40's Medical History Medical History Date Comments Hx Other Medical lump in breast; Comments: BONITA 11/16/2013 - Hypertension Anxiety Obesity Dysphagia Psoriasis Family History Medical History Relation Name Comments Hypertension Father Hypertension; Bladder Cancer Mother Cancer, bladd er; Hypertension Mother Hypertension; Breast cancer Neg Hx Relation Name Status Comments Father Mother Alive Social History Tobacco Use Types Packs/Day Years Used Date Smoking Tobacco: Never Tobacco Cessation:Counseling Given: Not Answered Alcohol Use Standard Drinks/Week Comments Yes 0 (1 standard drink = 0.6 oz pur e alcohol) AUDIT-C Answer Date Recorded Q1: How often do you have a drink containing alc ohol? Monthly or less 06/04/2023 Q2: How many drinks containi ng alcohol do you have on a typical day when you are drinking? 1 or 2 06/04/2023 Frequency of Binge Drinking Not on file 05/19 PHQ-2 Answer Date Recorded PHQ-2 Total Score (If total score is 3 or more points, staff should administer the PHQ-9) 2 03/05/2023 Comments No Sex and Gender Information Value Date Recorded Sex Assigned at Not on file Legal Sex Female 3:19 AM PARTITION ASSEMBLER Gender Identity Not on file Sexual Orientation Not on file Obstetrics History Para Term AB IAB SAB Ectopic Multiple Livin g Live Births 2 2 2 Date Outcome GA Total Labor Labor/06/21 Weight Sex Type Anes PTL Viktoria A1 A5 Name Clin Term Term Last Filed Vital Signs Vital Sign Reading Time Taken Comments Blood Pressure 118/80 06/04/2023 1:43 PM PARTITION ASSEMBLER Pulse 85 06/04/2023 1:43 PM PARTITION ASSEMBLER Temperature 36.6 ??C (97.8 ??F) 06/04/2023 1:43 PM CS T Respiratory Rate 18 06/04/2023 1:43 PM PARTITION ASSEMBLER Oxygen Saturation 91% 06/04/2023 1:43 PM PARTITION ASSEMBLER Inhaled Oxygen Concentration - - Weight 92.1 kg (203 lb) 06/04/2023 1:43 PM PARTITION ASSEMBLER Height 151.1 cm (4' 11.5 ) 06/04/2023 1:43 PM CS T Body Mass Index 40.31 06/04/2023 1:43 PM PARTITION ASSEMBLER Plan of Treatment Health Maintenance Due Date Last Done Comments Hepatitis C Screening 1965 DTaP/Tdap/Td Vaccine (1 - Tdap) 1976 Hepatitis B Screening 12/10/1983 Zoster Vaccine (1 of 2) 12/10/2015 Regular Well Visit/Exam 18-64 12/19/2021 12/19/2020 Breast Cancer Screening-Mammogram 09/19/2023 09/18/2022, 08/15/2017, 10/13/2014 Covid-19 Vaccine ( season) 2024 12/03/2020, 11/12/2020 Influenza Vaccine (#1) 2024 Depression Screening 03/05/2024 03/05/2023, 10/04/2021, 12/19/2020, Additional history exists Colon Cancer Screening-Colonoscopy 10/29/2026 10/29/2016 Colon Cancer Screening-CT Colonography Discontinued 10/29/2016 Colon Cancer Screening-DNA Stool Discontinued 10/29/2016 Colon Cancer Screening-FIT Discontinued 10/29/2016 Colon Cancer Screening-Sigmoidoscopy Discontinued 10/29/2016 Pneumococcal vaccine <65 Aged Out No longer eligible based on patient's age to complete this topic Procedures Procedure Name Priority Date/Time Associated Diagnosis Comments SCREENING MAMMOGRAM BILATERAL W JERMAN Schedule Routine, Read Routine (OP Routine) 09/18/2022 7:38 AM CDT Screening mammogram, encounter for HM COLONOSCOPY Routine 10/29/2016 from Last 3 Months or Most Recently Relevant to Health Maintenance Results * Screening Mammogram Bilateral W Jerman (09/18/2022 7:38 AM CDT) Anatomical Region Laterality Modality Breast Bilateral Mammography Impressions 09/18/2022 8:36 AM CDT BI-RADS?? ATLAS category (overall): 2 - Benign There is no mammographic evidence of malignancy. A 1 year screening mammogram is recommended. The patient has been or will be contacted. We recommend annual screening mammography for women at average risk of breast cancer beginning at age 40, based on guidelines of the [place] [employer] (ACR Practice Parameter for the Performance of Screening and Diagnostic Mammography) and [place] [employer]. For women with and elevated risk of breast cancer, please refer to the ACR Practice Parameter for specific screening recommendations. The patient will be entered into a reminder system with a target due date of 1 year for her next screening exam. Narrative 09/18/2022 8:36 AM CDT Screening Mammogram Bilateral W Jerman: 09/18/22 The study was acquired using full field digital technology and interpreted from soft copy. 2D digital mammographic views, as well as 3D digital tomosynthesis were performed in the CC and MLO projections. CLINICAL: ??Screening mammogram, encounter for. ??No relevant medical history has been documented for this patient. ??History of breast cancer in Neg Hx. COMPARISONS: 08/15/2017 Screening Mammogram Bilateral W Jerman BREAST TISSUE: The breasts have scattered areas of fibroglandular density. FINDINGS: Unchanged intramammary lymph nodes in both breasts. A biopsy marker clip is unchanged in the right breast. There is also an unchanged biopsy marker clip in the left breast. Oval masses with circumscribed margins in both breasts are smaller, likely representing cysts. There is no new suspicious finding in either breast on mammogram. ?? Dhaval Cota MD IMG MAMMO PROCEDURES Final Result * COLONOSCOPY (10/29/2016) Colonoscopy Normal Historical Provider HEALTH MAINTENANCE Final Result from Last 3 Months or Most Recently Relevant to Health Maintenance Insurance [employer] [facility] [address] [employer] [facility] Care Teams Billet Grinder Relationship Specialty Start Date End Date Christ Hu PA PCP - General 07/20/18
--- OUTSIDE RECORDS SUMMARY | 2024-05-25 02:17 | XMS_ITS | Referral Summary ---
Author Organization [facility] [place] [facility] Address [address] [place] [address] Care Team Providers Care Senior Visual Designer Name Role Phone Christ Hu Primary Care Provider Allergies Active Allergy Reactions Criticality Noted Date [...] Routine general medical exam ination at a [facility] care facility 06/14/2019 Assessment & Plan [...] breast Assessment & Plan (05/24/2021 6:29 AM FULL STACK PYTHON DEVELOPER): I strongly suspect this is due to [...] 06/09/2017 Assessment & Plan (06/04/2023 2:34 PM FULL STACK PYTHON DEVELOPER): She is retiring and I am taking [...] controlled Assessment & Plan (05/24/2021 6:29 AM FULL STACK PYTHON DEVELOPER): This is currently controlled will continue current [...] resolved Assessment & Plan (05/24/2021 6:29 AM FULL STACK PYTHON DEVELOPER): This is currently not an issue continue [...] Law Assessment & Plan (05/24/2021 6:29 AM FULL STACK PYTHON DEVELOPER): Healthy diet exercise and weight reduction Sinusitis 06/10/2016 Hypertension 11/16/2013 Overview (08/24/2016): HTN Assessment & Plan (06/04/2023 2:33 PM FULL STACK PYTHON DEVELOPER): Images from the original note were not [...] routine Assessment & Plan (04/02/2022 3:58 PM FULL STACK PYTHON DEVELOPER): Images from the original note were not [...] routine Assessment & Plan (05/24/2021 6:29 AM FULL STACK PYTHON DEVELOPER): This is a stable chronic condition. Monitor [...] SARS-CoV-2 Monovalent Vaccination (12+ Yrs) PURPLE 12/03/2020,11/12/2020 Social History Tobacco Use Types Packs/Day Years [...] on file Legal Sex Female 3:19 AM FULL STACK PYTHON DEVELOPER Gender Identity Not on file Sexual Orientation Not on file Last Filed Vital Signs Vital Sign Reading Time Taken Comments Blood Pressure 118/80 06/04/2023 1:43 PM FULL STACK PYTHON DEVELOPER Pulse 85 06/04/2023 1:43 PM FULL STACK PYTHON DEVELOPER Temperature 36.6 ??C (97.8 ??F) 06/04/2023 1:43 PM CS T Respiratory Rate 18 06/04/2023 1:43 PM FULL STACK PYTHON DEVELOPER Oxygen Saturation 91% 06/04/2023 1:43 PM FULL STACK PYTHON DEVELOPER Inhaled Oxygen Concentration - - Weight 92.1 kg (203 lb) 06/04/2023 1:43 PM FULL STACK PYTHON DEVELOPER Height 151.1 cm (4' 11.5 ) 06/04/2023 1:43 PM CS T Body Mass Index 40.31 06/04/2023 1:43 PM FULL STACK PYTHON DEVELOPER Plan of Treatment Not on file Procedures Procedure Name Priority Date/Time Associated Diagnosis Comments SCREENING MAMMOGRAM BILATERAL W JERMAN Schedule Routine, Read Routine (OP Routine) 09/18/2022 7:38 AM CDT Screening mammogram, encounter for COLONOSCOPY Routine 10/29/2016 from Last 3 Months [...] age 40, based on guidelines of the [place] [employer] (ACR Practice Parameter for the Performance of Screening and Diagnostic Mammography) and [place] [employer]. For women [...] Most Recently Relevant to Health Maintenance Insurance [facility] [place] [employer] [place] [employer] [facility] Care Teams Senior Visual Designer Relationship Specialty Start Date End Date Christ Hu PA PCP - General 07/20/18
--- OUTSIDE RECORDS SUMMARY | 2024-05-25 02:17 | XMS_ITS | Encounter Summary ---
Author Organization [facility] Address [address] [place] [address] Care Team Providers Care Supervisor Braiding Name Role Phone Christ Hu Primary Care Provider [phone] Encounter Details Date Type Department Care Team (Late st Contact Info) Description 03/21/2022 Orders Only [facility] Primary Care [address] [place] [address] Christ Hu PA [address] [place] [address] Social History Tobacco Use Types Packs/Day Years Used Date Smoking Tobacco: Never Alcohol Use Standard Drinks/Week Comments Yes 0 (1 standard drink = 0.6 oz pur e alcohol) AUDIT-C Answer Date Recorded Q1: How often do you have a drink containing alc ohol? Monthly or less 02/25/2022 Q2: How many drinks containi ng alcohol do you have on a typical day when you are drinking? 1 or 2 02/25/2022 Frequency of Binge Drinking Not on file 02/16 PHQ-2 Answer Date Recorded PHQ-2 Total Score (If total score is 3 or more points, staff should administer the PHQ-9) 0 10/04/2021 Comments Unknown Sex and Gender Information Value Date Recorded Sex Assigned at Not on file Legal Sex Female 3:19 AM MEDICAL RECORDS SECRETARY Gender Identity Not on file Sexual Orientation Not on file documented as of this encounter Ordered Prescriptions Prescription Sig Dispense Quantity Refills Last Filled Start Date End Date fluconazole (DIFLUCAN) 100 mg tablet Take 1 tablet (100 mg total) by mouth every other day 3 tablet 03/21/2022 03/21/2022 documented in this encounter Plan of Treatment Not on file documented as of this encounter Visit Diagnoses Not on filedocumented in this encounter Care Teams Supervisor Braiding Relationship Specialty Start Date End Date Christ Hu PA PCP - General 07/20/18 documented as of this encounter
--- OUTSIDE RECORDS SUMMARY | 2024-05-25 02:17 | XMS_ITS | Encounter Summary ---
Author Organization [facility] Address [address] [place] [address] Care Team Providers Care Drapery Cutter Machine Name Role Phone Christ Hu Primary Care Provider [phone] Reason for Visit * Reason Comments Preventative Care Review Medications Encounter Details Date Type Department Care Team (Late st Contact Info) Description 07/31/2022 2:15 PM CDT Office Visit [facility] Primary Care [address] [place] [address] Christ Hu PA [address] [place] [address] Situational anxiety (Primary Dx); Obesity, unspecified obesity severity, unspecified obesity type; Primary hypertension; Psoriasis Social History Tobacco Use Types Packs/Day Years Used Date Smoking Tobacco: Never Tobacco Cessation:Counseling Given: Not Answered Alcohol Use Standard Drinks/Week Comments Yes 0 (1 standard drink = 0.6 oz pur e alcohol) AUDIT-C Answer Date Recorded Q1: How often do you have a drink containing alc ohol? Monthly or less 07/31/2022 Q2: How many drinks containi ng alcohol do you have on a typical day when you are drinking? 1 or 2 07/31/2022 Frequency of Binge Drinking Not on file 07/17 PHQ-2 Answer Date Recorded PHQ-2 Total Score (If total score is 3 or more points, staff should administer the PHQ-9) 0 10/04/2021 Comments Unknown Sex and Gender Information Value Date Recorded Sex Assigned at Not on file Legal Sex Female 3:19 AM LINEN CHECKER Gender Identity Not on file Sexual Orientation Not on file documented as of this encounter Last Filed Vital Signs Vital Sign Reading Time Taken Comments Blood Pressure 128/82 07/31/2022 2:25 PM CDT Pulse 78 07/31/2022 2:25 PM CDT Temperature 35.6 ??C (96 ??F) 07/31/2022 2:25 PM CDT Respiratory Rate 18 07/31/2022 2:25 PM CDT Oxygen Saturation 93% 07/31/2022 2:25 PM CDT Inhaled Oxygen Concentration - - Weight 89.8 kg (198 lb) 07/31/2022 2:25 PM CDT Height 151.1 cm (4' 11.5 ) 07/31/2022 2:25 PM CD T Body Mass Index 39.32 07/31/2022 2:25 PM CDT documented in this encounter Ordered Prescriptions Prescription Sig Dispense Quantity Refills Last Filled Start Date End Date fluocinonide (LIDEX) 0.05 % external solution Apply topically 2 (two) times a day 60 mL 11 07/31/2022 ketoconazole (NIZORAL) 2 % shampoo Apply topically 2 (two) times a week 120 mL 11 08/01/2022 metroNIDAZOLE (METROCREAM) 0.75 % cream Apply topically 2 (two) times a day 45 g 3 07/31/2022 fluticasone propionate (Flonase Allergy Relief) 50 mcg/actuation nasal spray Administer 2 sprays into each nostril daily 3 each 3 07/31/2022 telmisartan (Micardis) 40 mg tablet Take 1 tablet (40 mg total) by mouth daily 90 tablet 3 07/31/2022 4 hydroCHLOROthiazid e (HYDRODIURIL) 25 mg tablet Take 1 tablet (25 mg total) by mouth daily 90 tablet 3 07/31/2022 4 dulaglutide (TRULICITY) 0.75 mg/0.5 mL pen injector Inject 1 mL (1.5 mg total) under the skin every 7 days Please give 90 days 6 mL 3 07/31/2022 3 documented in this encounter Progress Notes * Christ Hu, PA - 07/31/2022 2:15 PM CDT Images from the original note were not included. Subjective/Objective Patient ID: Shasta Ace is a 56 y.o. female. Chief Complaint Preventative Care and Review Medications Vitals: 07/31/22 1425 BP: 128/82 BP Location: Left arm Patient Position: Sitting Pulse: 78 Resp: 18 Temp: (!) 35.6 ??C (96 ??F) TempSrc: Temporal SpO2: 93% Weight: 89.8 kg (198 lb) Height: 151.1 cm (4' 11.5 ) Patient is in for routine follow-up for the following medical conditions labs and medications. Patient in for weight, considered barriatric surgery but started trulicity and overall doing well, she is currently taking Past Medical History: Diagnosis Date Anxiety Dysphagia HX OTHER MEDICAL lump in breast; Comments: BONITA 11/16/2013 - Hypertension Obesity Past Surgical History: Procedure Laterality Date BREAST BIOPSY Right 09/21/2015 BREAST BIOPSY Left 09/21/2015 SECTION COLECTOMY Colectomy OTHER SURGICAL HISTORY lump in breast: lumpectomy TOTAL ABDOMINAL HYSTERECTOMY Hysterectomy, total Allergies Allergen Reactions Sulfa (Sulfonamide Antibiotics) Rash Reaction: Rash, Social History Tobacco Use Smoking status: Never Smokeless tobacco: None Substance and Sexual Activity Drug use: Never Sexual activity: None Alcohol Use: Unknown Frequency of Alcohol Consumption: Monthly or less Average Number of Drinks: 1 or 2 Frequency of Binge Drinking: Not on file Family History Problem Relation Age of Onset Bladder Cancer Mother Cancer, bladder; Hypertension Mother Hypertension; Hypertension Father Hypertension; has a current medication list which includes the following prescription(s): albuterol hfa (PROVENTIL HFA), alprazolam (XANAX), benzonatate (TESSALON PERLES), fluconazole (DIFLUCAN), fluticasone propionate (FLONASE ALLERGY RELIEF), hydrochlorothiazide (HYDRODIURIL), ibuprofen (ADVIL,MOTRIN), ketocona zole (NIZORAL), metronidazole (METROCREAM), multivitamin, nystatin, and telmisartan (MICARDIS). Review of Systems Constitutional: Negative for activity change. HENT: Negative for congestion. Respiratory: Negative for shortness of breath. Cardiovascular: Negative for chest pain. Gastrointestinal: Negative for abdominal pain. Physical Exam Constitutional: General: She is not in acute distress. Appearance: She is well-developed. HENT: Head: Normocephalic. Right Ear: External ear normal. Left Ear: External ear normal. Nose: Nose normal. Eyes: Pupils: Pupils are equal, round, and reactive to light. Cardiovascular: Rate and Rhythm: Normal rate and regular rhythm. Heart sounds: Normal heart sounds. Pulmonary: Breath sounds: Normal breath sounds. Abdominal: General: Bowel sounds are normal. Palpations: Abdomen is soft. Musculoskeletal: General: Normal range of motion. Cervical back: Neck supple. Skin: General: Skin is warm and dry. Assessment/Plan Diagnoses and all orders for this visit: Situational anxiety (Primary) Assessment & Plan: Controlled with as needed meds Obesity, unspecified obesity severity, unspecified obesity type Assessment & Plan: Continue trulicity Primary hypertension Assessment & Plan: This is a stable chronic condition. Monitor blood pressure, call if out of parameters as we discussed. Low sodium and caffeine diet. baby asa as discussed if applicable. Diet, exercise and weight reduction. Labs as ordered. F/U routine Psoriasis Assessment & Plan: Seeing derm Other orders - dulaglutide (TRULICITY) 0.75 mg/0.5 mL pen injector; Inject 1 mL (1.5 mg total) under the skin every 7 days Please give 90 days - fluticasone propionate (Flonase Allergy Relief) 50 mcg/actuation nasal spray; Administer 2 spraysinto each nostril daily - hydroCHLOROthiazide (HYDRODIURIL) 25 mg tablet; Take 1 tablet (25 mg total) by mouth daily - telmisartan (Micardis) 40 mg tablet; Take 1 tablet (40 mg total) by mouth daily - metroNIDAZOLE (METROCREAM) 0.75 % cream; Apply topically 2 (two) times a day - ketoconazole (NIZORAL) 2 % shampoo; Apply topically 2 (two) times a week - fluocinonide (LIDEX) 0.05 % external solution; Apply topically 2 (two) times a day No orders of the defined types were placed in this encounter. Body mass index is 39.32 kg/m??. BMI Follow-up includes: nutrition counseling, exercise counseling, and education provided. *This note is dictated using Mmodal medical voice recognition software, variances in spelling and vocabulary are possible and unintentional.* TUAN Sky documented in this encounter Miscellaneous Notes * Assessment & Plan Note - Christ Hu PA - 07/31/2022 2:44 PM CDTAssociated Problem(s): Psoriasis Seeing derm * Assessment & Plan Note - Christ Hu PA - 07/31/2022 2:43 PM CDTAssociated Problem(s): Situational anxiety Controlled with as needed meds * Assessment & Plan Note - Christ Hu PA - 07/31/2022 2:43 PM CDTAssociated Problem(s): Obesity, unspecified obesity severity, unspecified obesity type Continue trulicity * Assessment & Plan Note - Christ Hu PA - 07/31/2022 2:43 PM CDTAssociated Problem(s): Hypertension Images from the original note were not included. This is a stable chronic condition. Monitor blood pressure, call if out of parameters as we discussed. Low sodium and caffeine diet. baby asa as discussed if applicable. Diet, exercise and weight reduction. Labs as ordered. F/U routine documented in this encounter Plan of Treatment Not on file documented as of this encounter Visit Diagnoses Diagnosis Situational anxiety- Primary Obesity, unspecified obesity severity, unspecified obesity type Primary hypertension Unspecified essential hypertension Psoriasis Other psoriasis documented in this encounter Discontinued Medications Medication Sig Discontinue Reason Start Date End Da te nystatin powder Apply topically 4 (four) times a day 02/25/2022 07/31/2022 ketoconazole (NIZORAL) 2 % cream Apply topically 2 (two) times a day 02/25/2022 07/31/2022 dulaglutide (TRULICITY) 0.75 mg/0.5 mL pen injector Inject 0.5 mL (0.75 mg total) under the skin every 7 days Please give 90 days Reorder 04/02/2022 07/31/2022 fluticasone propionate (Flonase Allergy Relief) 50 mcg/actuation nasal spray Administer 2 sprays into each nostril daily Reorder 05/23/2021 07/31/2022 hydroCHLOROthiazide (HYDRODIURIL) 25 mg tablet Take 1 tablet (25 mg total) by mouth daily Reorder 05/23/2021 07/31/2022 telmisartan (Micardis) 40 mg tablet Take 1 tablet (40 mg total) by mouth daily Reorder 05/23/2021 07/31/2022 ketoconazole (NIZORAL) 2 % shampoo Reorder 07/22/2022 07/31/2022 metroNIDAZOLE (METROCREAM) 0.75 % cream Reorder 05/31/2022 07/31/2022 documented as of this encounter Historical Medications * This list may reflect changes made after this encounter. triamcinolone (KENALOG) 0.1 % cream 04/26/2022 tazarotene (AVAGE) 0.1 % cream APPLY TOPICALLY TO THE AFFECTED AREA EVERY NIGHT 06/24/2022 clobetasoL (TEMOVATE) 0.05 % external solution 06/24/2022 metroNIDAZOLE (METROCREAM) 0.75 % cream 05/31/2022 3 calcipotriene (DOVONOX) 0.005 % ointment APPLY TO AFFECTED AREAS TWICE DAILY FOR 2 WEEKS. INITIATE CALCIPOTRIENE USE AFTER 2 WEEKS OF TRIAMCINOLONE 04/26/2022 4 ketoconazole (NIZORAL) 2 % shampoo 07/22/2022 3 added in this encounter Care Teams Drapery Cutter Machine Relationship Specialty Start Date End Date Christ Hu PA PCP - General 07/20/18 documented as of this encounter
--- OUTSIDE RECORDS SUMMARY | 2024-05-25 02:17 | XMS_ITS | Encounter Summary ---
Author Organization [facility] Address [address] [place] [address] Care Team Providers Care Adjunct Political Science Instructor Name Role Phone Christ Hu Primary Care Provider [phone] Reason for Visit * Reason Comments Rash Underneath both sarah st Encounter Details Date Type Department Care Team (Late st Contact Info) Description 02/25/2022 2:00 PM CDT Office Visit [facility] Primary Care [address] [place] [address] Christ Hu PA [address] [place] [address] Situational anxiety (Primary Dx); Primary hypertension; Rash Social History Tobacco Use Types Packs/Day Years [...] on file Legal Sex Female 3: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 Gender Identity Not on file Sexual Orientation Not on file documented as of this encounter Last Filed Vital Signs Vital Sign Reading Time Taken Comments Blood Pressure 120/80 02/25/2022 2:09 PM CDT Pulse 93 02/25/2022 2:09 PM CDT Temperature 35.8 ??C (96.4 ??F) 02/25/2022 2:09 PM CD T Respiratory Rate 16 02/25/2022 2:09 PM CDT Oxygen Saturation 96% 02/25/2022 2:09 PM CDT Inhaled Oxygen Concentration - - Weight 94.3 kg (208 lb) 02/25/2022 2:09 PM CDT Height 152.4 cm (5') 02/25/2022 2:09 PM CDT Body Mass Index 40.62 02/25/2022 2:09 PM CDT documented in this encounter Ordered Prescriptions Prescription Sig Dispense Quantity Refills Last Filled Start Date End Date fluconazole (DIFLUCAN) 150 mg tablet Take 1 tablet (150 mg total) by mouth daily for 3 days Take one tab now. Repeat in 7 days if symptoms persist. 3 tablet 02/25/2022 2 nystatin powder Apply topically 4 (four) times a day 60 g 3 02/25/2022 3 ketoconazole (NIZORAL) 2 % cream Apply topically 2 (two) times a day 60 g 3 02/25/2022 3 documented in this encounter Progress Notes * Christ Hu, TUAN - 02/25/2022 2:00 PM CDT Images from the original note were not included. Subjective/Objective Patient ID: Shastalevi Ace is a 56 y.o. female. Chief Complaint Rash (Underneath both breast) Vitals: 02/25/22 1409 BP: 120/80 BP Location: Left arm Patient Position: Sitting Pulse: 93 Resp: 16 Temp: (!) 35.8 ??C (96.4 ??F) TempSrc: Temporal SpO2: 96% Weight: 94.3 kg (208 lb) Height: 152.4 cm (5') Patient is in for routine follow-up for the following medical conditions labs and medications. Patient is in for follow-up for the following medical conditions Situational anxiety Hypertension Rash under both breasts Past Medical History: Diagnosis Date Anxiety Dysphagia [...] (PROVENTIL HFA), alprazolam (XANAX), benzonatate (TESSALON PERLES), fluticasone propionate (FLONASE ALLERGY RELIEF), hydrochlorothiazide (HYDRODIURIL), ibuprofen (ADVIL,MOTRIN), methylprednisolone (MEDROL DOSEPACK), metronidazole (METROCREAM), multivitamin, and telmisartan (MICARDIS). Review of Systems Constitutional: [...] Skin: General: Skin is warm and dry. Comments: Underneath both breasts is an erythematous and slightly excoriated chronic looking rash with mild erythema and satellite lesion Assessment/Plan Diagnoses and all orders for this visit: Situational anxiety (Primary) Assessment & Plan: This is well controlled continue p.r.n. medication Primary hypertension Assessment & Plan: This is a stable chronic condition. Monitor blood pressure, call if out of parameters as we discussed. Low sodium and caffeine diet. baby asa as discussed if applicable. Diet, exercise and weight reduction. Labs as ordered. F/U routine Rash Assessment & Plan: This is under both breasts and severe I am going to treat her with ketoconazole cream nystatin powder and Diflucan if this persists due to her pendulous breasts we may need to discuss breast reduction Other orders - ketoconazole (NIZORAL) 2 % cream; Apply topically 2 (two) times a day - nystatin powder; Apply topically 4 (four) times a day - fluconazole (DIFLUCAN) 150 mg tablet; Take 1 tablet (150 mg total) by mouth daily for 3 days Takeone tab now. Repeat in 7 days if symptoms persist. No orders of the defined types were placed in this encounter. Body mass index is 40.62 kg/m??. BMI Follow-up includes: nutrition counseling, exercise counseling, and education provided. *This note is dictated using [employer] voice recognition software, variances in spelling and vocabulary are possible and unintentional.* TUAN Sky documented in this encounter Miscellaneous Notes * Assessment & Plan Note - Christ Hu PA - 02/25/2022 2:26 PM CDTAssociated Problem(s): Hypertension This is a stable chronic condition. Monitor blood pressure, call if out of parameters as we discussed. Low sodium and caffeine diet. baby asa as discussed if applicable. Diet, exercise and weight reduction. Labs as ordered. F/U routine * Assessment & Plan Note - Christ Hu PA - 02/25/2022 2:26 PM CDTAssociated Problem(s): Situational anxiety This is well controlled continue p.r.n. medication * Assessment & Plan Note - Christ Hu PA - 02/25/2022 2:26 PM CDTAssociated Problem(s): Rash This is under both breasts and severe I am going to treat her with ketoconazole cream nystatin powder and Diflucan if this persists due to her pendulous breasts we may need to discuss breast reduction documented in this encounter Plan of Treatment Not on file documented as of this encounter Visit Diagnoses Diagnosis Situational anxiety- Primary Primary hypertension Unspecified essential hypertension Rash Rash and other nonspecific skin eruption documented in this encounter Discontinued Medications Medication Sig Discontinue Reason Start Date End Da te methylPREDNISolone (MEDROL DOSEPACK) 4 mg Dosepack Take as directed on package. 10/04/2021 02/25/2022 documented as of this encounter Care Teams Adjunct Political Science Instructor Relationship Specialty Start Date End Date Christ Hu PA PCP - General 07/20/18 documented as of this encounter
--- OUTSIDE RECORDS SUMMARY | 2024-05-25 02:17 | XMS_ITS | Encounter Summary ---
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 Thank you * Telephone Encounter - Betzaida Saunders MA - 03/21/2022 2:55 PM CDT See message * Telephone Encounter - Patricai Hearn - 03/21/2022 2:51 PM CDT Medical Question/Miscellaneous Caller???s Concern: patient stated that the yeast infection under her breast is almost gone and sheis requesting 3 more diflucan pills to clear it up please advise Caller???s Call back #: [phone] Does message need to be routed?Yes-Action Needed documented in this encounter Plan of Treatment Not on file documented as of this encounter Visit Diagnoses Not on filedocumented in this encounter Care Teams Consulting Utility Forester Relationship Specialty Start Date End Date Christ Hu PA PCP - General 07/20/18 documented as of this encounter
--- OUTSIDE RECORDS SUMMARY | 2024-05-25 02:17 | XMS_ITS | Encounter Summary ---
Author Organization [facility] Address [address] [place] [address] Care Team Providers Care Heel Stainer Name Role Phone Sirena Hu Primary Care Provider [phone] Reason for Visit * Reason Comments established pt Weight loss Encounter Details Date Type Department Care Team (Late st Contact Info) Description 04/02/2022 3:45 PM PIT TANNER Office Visit [facility] Primary Care [address] [place] [address] Sirena Hu PA [address] [place] [address] Primary hypertension (Primary Dx); Morbid obesity with BMI of 40.0-44.9, adult (HCC) Social History Tobacco Use Types Packs/Day Years [...] on file Legal Sex Female 3:19 AM PIT TANNER Gender Identity Not on file Sexual Orientation Not on file documented as of this encounter Last Filed Vital Signs Vital Sign Reading Time Taken Comments Blood Pressure 136/88 04/02/2022 3:45 PM PIT TANNER Pulse 86 04/02/2022 3:45 PM PIT TANNER Temperature 36.6 ??C (97.8 ??F) 04/02/2022 3 :45 PM PIT TANNER Respiratory Rate 16 04/02/2022 3:45 PM PIT TANNER Oxygen Saturation 97% 04/02/2022 3:4 5 PM PIT TANNER Inhaled Oxygen Concentration - - Weight 94.9 kg (209 lb 3.2 oz) 04/02/20 3:45 PM PIT TANNER Height 151.1 cm (4' 11.5 ) 04/02/2022 3 :45 PM PIT TANNER pt reported Body Mass Index 41.55 04/02/2022 3:45 PM PIT TANNER documented in this encounter Ordered Prescriptions Prescription Sig Dispense Quantity Refills Last Filled Start Date End Date dulaglutide (TRULICITY) 0.75 mg/0.5 mL pen injector Inject 0.5 mL (0.75 mg total) under the skin every 7 days Please give 90 days 3 mL 3 04/02/2022 07/31/2022 semaglutide (OZEMPIC) 0.25 mg or 0.5 mg(2 mg/1.5 mL) pen injector injection Inject 0.5 mg under the skin every 7 days 6 mL 3 04/02/2022 04/02/2022 documented in this encounter Progress Notes * Sirena Hu, TUAN - 04/02/2022 3:45 PM CST Images from the original note were not included. Subjective/Objective Patient ID: Shastabreann Ace is a 56 y.o. female. Chief Complaint established pt (Weight loss) Vitals: 04/02/22 1545 BP: 136/88 BP Location: Left arm Patient Position: Sitting Pulse: 86 Resp: 16 Temp: 36.6 ??C (97.8 ??F) TempSrc: Temporal SpO2: 97% Weight: 94.9 kg (209 lb 3.2 oz) Height: 151.1 cm (4' 11.5 ) Patient is in for routine follow-up for the following medical conditions labs and medications. Patient in for weight, considered barriatric surgery but does not have a colon, it was removed due to not functioning right, she is waning to try ozempic Past Medical History: Diagnosis Date Anxiety Dysphagia [...] Diagnoses and all orders for this visit: Primary hypertension (Primary) Assessment & Plan: This is a stable chronic condition. Monitor blood pressure, call if out of parameters as we discussed. Low sodium and caffeine diet. baby asa as discussed if applicable. Diet, exercise and weight reduction. Labs as ordered. F/U routine Morbid obesity with BMI of 40.0-44.9, adult (HCC) Comments: trial of ozempic Other orders - semaglutide (OZEMPIC) 0.25 mg or 0.5 mg(2 mg/1.5 mL) pen injector injection; Inject 0.5 mg under the skin every 7 days No orders of the defined types were placed in this encounter. Body mass index is 41.55 kg/m??. BMI Follow-up includes: nutrition counseling, exercise counseling, and education provided. *This note is dictated using [employer] voice recognition software, variances in spelling and vocabulary are possible and unintentional.* TUAN Sky TANNER documented in this encounter Miscellaneous Notes * Assessment & Plan Note - Sirena Hu PA - 04/02/2022 3:58 PM CSTAssociated Problem(s): Hypertension Images from the original note were not included. This is a stable chronic condition. Monitor blood pressure, call if out of parameters as we discussed. Low sodium and caffeine diet. baby asa as discussed if applicable. Diet, exercise and weight reduction. Labs as ordered. F/U routine TANNER * Addendum Note - Sirena Hu PA - 04/02/2022 3:45 PM CSTAddended by: SIRENA HU on: 04/02/2022 04:38 PM Modules accepted: Orders TANNER documented in this encounter Plan of Treatment Not on file documented as of this encounter Visit Diagnoses Diagnosis Primary hypertension- Primary Unspecified essential hypertension Morbid obesity with BMI of 40.0-44.9, adult (HCC) documented in this encounter Discontinued Medications Medication Sig Discontinue Reason Start Date End Da te semaglutide (OZEMPIC) 0.25 mg or 0.5 mg(2 mg/1.5 mL) pen injector injection Inject 0.5 mg under the skin every 7 days 04/02/2022 04/02/2022 documented as of this encounter Care Teams Heel Stainer Relationship Specialty Start Date End Date Sirena Hu PA PCP - General 07/20/18 documented as of this encounter
--- OUTSIDE RECORDS SUMMARY | 2024-05-25 02:17 | XMS_ITS | Encounter Summary ---
Author Organization [facility] Address [address] [facility] [address] [place] [address] Care Team Providers Care Microsoft Systems Engineer Name Role Phone Christ Hu Primary Care Provider [phone] Reason for Visit * Reason Comments Weight Loss WLN Encounter Details Date Type Department Care Team (Late st Contact Info) Description 09/05/2021 2:00 PM CDT Office Visit [facility] Primary Care at [address] [place] [address] Jose Law MD [address] [facility] [address] [address] Abnormal weight gain (Primary Dx); Class 3 severe obesity due to excess calories without serious comorbidity with body mass index (BMI) of 40.0 to 44.9 in adult (HCC) Social History Tobacco Use Types Packs/Day Years Used Date Smoking Tobacco: Never Alcohol Use Standard Drinks/Week Comments Yes 0 (1 standard drink = 0.6 oz pur e alcohol) AUDIT-C Answer Date Recorded Q1: How often do you have a drink containing alc ohol? Monthly or less 08/21/2021 Q2: How many drinks containi ng alcohol do you have on a typical day when you are drinking? 1 or 2 08/21/2021 Frequency of Binge Drinking Not on file 09/2021 PHQ-2 Answer Date Recorded PHQ-2 Total Score (If total score is 3 or more points, staff should administer the PHQ-9) 0 12/19/2020 Comments Unknown Sex and Gender Information Value Date Recorded Sex Assigned at Not on file Legal Sex Female 3:19 AM FOX RAISER Gender Identity Not on file Sexual Orientation Not on file documented as of this encounter Last Filed Vital Signs Vital Sign Reading Time Taken Comments Blood Pressure 118/80 09/05/2021 2:14 PM CDT Pulse 91 09/05/2021 2:14 PM CDT Temperature 37.3 ??C (99.2 ??F) 09/05/2021 2:14 PM CD T Respiratory Rate 14 09/05/2021 2:14 PM CDT Oxygen Saturation 92% 09/05/2021 2:14 PM CDT Inhaled Oxygen Concentration - - Weight 94 kg (207 lb 3.2 oz) 09/05/2021 2:14 PM CDT Height 152.4 cm (5') 09/05/2021 2:14 PM CDT Body Mass Index 40.47 09/05/2021 2:14 PM CDT documented in this encounter Ordered Prescriptions Prescription Sig Dispense Quantity Refills Last Filled Start Date End Date phentermine (ADIPEX-P) 37.5 mg tabletIndications: Weight Loss Management for Obese Patient (BMI >= 30) Take 1 tablet (37.5 mg total) by mouth daily before breakfast 30 tablet 09/05/2021 2 documented in this encounter Progress Notes * Jose Law MD - 09/05/2021 2:00 PM CDT Images from the original note were not included. Visit date: 09/05/2021 Patient ID: Shastadominic Ace is a 55 y.o. female. Chief Complaint. Chief Complaint Patient presents with ??? Weight Loss WLN HPI. Patient is a 55 y.o. female HPI Lifestyle Medicine For Weight Management, Multiple Chronic Conditions and Prevention: Previous Dietary Approaches: Not on any specific Diet POLINA: yes, and is not using CPAP Mental Health: Stable Diabetes: No Previous History of Weight Loss Surgery: None First Visit Date: 09/05/21 First Visit Weight: 207lb Dates: Weight (lb) Wt Readings from Last 3 Encounters: 09/05/21 94 kg (207 lb 3.2 oz) 08/21/21 94.8 kg (209 lb) 05/23/21 94.3 kg (208 lb) Total Weight Loss: First Visit Treatment: Medication: None Meal Replacement/Delivery: No Specific Diet: Not on any specific Diet Food Diary: No Activity: is walking and Daily Steps count about 5000 to [id number] Past Medical History: Diagnosis Date ??? Anxiety ??? Dysphagia ??? HX OTHER MEDICAL lump in breast; Comments: BONITA 11/16/2013 - ??? Hypertension ??? Obesity Past Surgical History: Procedure Laterality Date ??? BREAST BIOPSY Right 09/21/2015 ??? BREAST BIOPSY Left 09/21/2015 ??? SECTION ??? COLECTOMY Colectomy ??? OTHER SURGICAL HISTORY lump in breast: lumpectomy ??? TOTAL ABDOMINAL HYSTERECTOMY Hysterectomy, total Allergies Allergen Reactions ??? Sulfa (Sulfonamide Antibiotics) Rash Reaction: Rash, Social History Tobacco Use ??? Smoking status: Never Smoker ??? Smokeless tobacco: Not on file Substance Use Topics ??? Alcohol use: Yes Family History Problem Relation Age of Onset ??? Bladder Cancer Mother Cancer, bladder; ??? Hypertension Mother Hypertension; ??? Hypertension Father Hypertension; Current Medications: Outpatient Encounter Medications as of 09/05/2021 Medication Sig Dispense Refill ??? albuterol HFA (Proventil HFA) 90 mcg/actuation inhaler Inhale 1 puff every 6 (six) hours as needed (for wheezing) 3 each 3 ??? ALPRAZolam (Xanax) 0.25 mg tablet Take 1 tablet (0.25 mg total) by mouth daily as needed for anxiety 15 tablet 0 ??? fluticasone propionate (Flonase Allergy Relief) 50 mcg/actuation nasal spray Administer 2 sprays into each nostril daily 3 each 3 ??? hydroCHLOROthiazide (HYDRODIURIL) 25 mg tablet Take 1 tablet (25 mg total) by mouth daily 90 tablet 3 ??? ibuprofen (ADVIL,MOTRIN) 800 mg tablet Take 1 tablet (800 mg total) by mouth every 6 (six) hours as needed (pain) 90 tablet 1 ??? metroNIDAZOLE (METROCREAM) 0.75 % cream Apply twice daily to rosacea 45 g 2 ??? multivitamin (MULTIPLE VITAMINS DAILY ORAL) Rx: Multi Vitamin Daily ??? telmisartan (Micardis) 40 mg tablet Take 1 tablet (40 mg total) by mouth daily 90 tablet 3 ??? busPIRone (BUSPAR) 7.5 mg tablet Take 1 tablet (7.5 mg total) by mouth 3 (three) times a day (Patient not taking: Reported on 09/05/2021) 180 tablet 3 ??? phentermine (ADIPEX-P) 37.5 mg tablet Take 1 tablet (37.5 mg total) by mouth daily before breakfast 30 tablet 0 ??? sertraline (ZOLOFT) 25 mg tablet (Patient not taking: Reported on 09/05/2021) No facility-administered encounter medications on file as of 09/05/2021. Review of Systems: Review of Systems Constitutional: Positive for activity change, appetite change, fatigue and unexpected weight change. Negative for chills, diaphoresis and fever. HENT: Negative for trouble swallowing and voice change. Eyes: Negative for photophobia and visual disturbance. Respiratory: Negative for apnea, chest tightness and shortness of breath. Cardiovascular: Negative for chest pain, palpitations and leg swelling. Gastrointestinal: Negative for blood in stool, constipation and nausea. Endocrine: Negative for cold intolerance, heat intolerance, polydipsia, polyphagia and polyuria. Musculoskeletal: Negative for arthralgias, back pain, gait problem, myalgias, neck pain and neck stiffness. Skin: Negative for rash. Allergic/Immunologic: Negative for food allergies. Neurological: Negative for dizziness, seizures, weakness, light-headedness and headaches. Hematological: Negative for adenopathy. Psychiatric/Behavioral: Negative for agitation, behavioral problems and suicidal ideas. The patientis not nervous/anxious and is not hyperactive. BP 118/80 (BP Location: Right arm, Patient Position: Sitting) Pulse 91 Temp 37.3 ??C (99.2 ??F)(Oral) Resp 14 Ht 152.4 cm (5') Wt 94 kg (207 lb 3.2 oz) SpO2 92% BMI 40.47 kg/m?? Physical Exam: Physical Exam Constitutional: He is oriented to person, place, and time. Vital signs are normal. He appears well-developed and well-nourished. HENT: Head: Normocephalic and atraumatic. Mouth/Throat: Oropharynx is clear and moist. Eyes: Pupils are equal, round, and reactive to light. Conjunctivae and EOM are normal. Neck: Normal range of motion. Neck supple. No thyromegaly present. Cardiovascular: Normal rate, regular rhythm, normal heart sounds and intact distal pulses. Pulmonary/Chest: Effort normal and breath sounds normal. Neurological: He is alert and oriented to person, place, and time. Psychiatric: He has a normal mood and affect. His behavior is normal. Judgment and thought content normal. Nursing note and vitals reviewed. Assessment & Plan: Diagnoses and all orders for this visit: Abnormal weight gain (Primary) - phentermine (ADIPEX-P) 37.5 mg tablet; Take 1 tablet (37.5 mg total) by mouth daily before breakfast Class 3 severe obesity due to excess calories without serious comorbidity with body mass index (BMI) of 40.0 to 44.9 in adult (HCC) - phentermine (ADIPEX-P) 37.5 mg tablet; Take 1 tablet (37.5 mg total) by mouth daily before breakfast Discussed/Re-emphasized Diet (90%) + Physical Activity (10%) Plan: Discussed/Re-emphasized Vegetables/Fruits Nutritional Ranking Handout: Recommended >80% caloriesfrom Whole Food Plant Based Nutrition. Discussed/Re-emphasized Processed Food (Frozen, Canned, Fast, Refined...) vs. Whole Food/Organic/Non-GMO Discussed/Re-emphasized High Fiber Diet: How to increase fibers in diet Handout being provided. Discussed/Re-emphasized [place]/Phytochemicals Diet. Disucssed/Re-emphasized [place] Diet: Grocery List and Weekly Meal Plan provided. Discussed/Re-emphasized Low Carb Diet (<50g/day) with approximately Low Calories (<1200kcal/day): Grocery List, Daily Meal Plan and Healthy Alternative being provided. Discussed/Re-emphasized Non-weight bearing exercise to complete average 7500- 19212 steps per day: Swimming or Stationary Exercise Bike. Disccused/Re-emphasized POLINA/CPAP/Sleep. Disccused/Re-emphasized Good Carb/Protein/Fat. Discussed/Re-emphasized Glycemic Index/Load to determine Good vs. Bad Carbs. Discussed/Re-emphasized Behaviroral Modification to reduce stress by Yoga and Mindfulness. Discussed/Re-emphasized Small (<250kcal) vs. Large Meals (<450kcal) Based on Calories, not volume: Approximately Small Meals x 3 + Large Meal x 1 (Preferably Lunch). Discussed/Re-emphasized Small Meal Intermittent Snacking (<250kcal): Nuts (Soaked in water overnight), Berries, Seeds, Dried/Fresh Fruits/Vegetables. Discussed/Re-emphasized Energy Options: Vitamin B12 Tablets (2 hours prior to Dinner), Caffeine Tablets (in AM or Lunch Time) or FDA Approved Weight Loss Prescription Medications. Discussed/Re-emphasized Weight loss Medications in detail including side effects: Phenteramine, Qsymia, Belviq, Contrave, Saxenda! Consider OTC Meal Replacement Plans or Home Delivery Meal Plans. Encourage Monthly office visits to ensure accountability and continuous positive weight outcomes. General Guidelines: 1. Restrict Caloric Intake: Instead of calculating total calories, you can eliminate one food item from daily intake at a time that would be worth of 100- 200 kcal. Minimize Processed carbohydrates (Potatoes, Pasta, Bread, rice and corn) and processed sugars (Sodas, Cookies, Donuts & Desserts). Small plates and bowels. Small meals (Under 250kcal) at a time! 2. Quality of Diet: Organic, Non-GMO, fresh, raw-food, whole-food & more fruits and vegetables.Look for lean protein (Soy, Lentils, beans, legumes and nuts). Avoid processed food (frozen, canned, fast-food). Shop food economically from multiple places. 3. Stress Reduction: Yoga, Mindfulness, Exercise, Volunteering, Spirituality! Mindfulness eating (Avoid multi-tasking while eating and Increase awareness of what food is doing to Body). 4. Quality Restful Sleep: Melatonin, Yoga-Nidra, Kiwi fruit. Avoid meals in last two hours of the day. Avoid Caffeine, alcohol, high sugar/desserts and tobacco with or after dinner. 5. Increase Exertion within Daily Activities: 7500-60224 Steps/day. Avoid Elevators, escalators at public places. Increase steps in parking lots!. Office Visit based on Time: I have spent more than 40 minutes Face to Face and hsx-iazc-yj-face activities with Patient during office visit and on the date of service. Zro-vwrl-rk-face activities included Preparing to see the patient (including review of tests), Obtaining and reviewing separately obtained History and Medical records, Ordering medications, tests, procedures and Documenting clinical information in the electronic and other health record I had spent total time toward Detailed Counselling including various kinds of Dietory methods, activities, medications and potential weight loss surgical options. Detailed Handouts on each topics were also printed and hand-delivered to the patient. Body mass index is 40.47 kg/m??. BMI Plan: Nutrition/Activities/Behavioral Counseling. Education Provided. Follow up 1-3 months. Jose Law MD documented in this encounter Plan of Treatment Not on file documented as of this encounter Visit Diagnoses Diagnosis Abnormal weight gain- Primary Class 3 severe obesity due to excess calories without serious comorbidity with body mass index (BMI) of 40.0 to 44.9 in adult (HCC) documented in this encounter Historical Medications * This list may reflect changes made after this encounter. Medication Sig Dispense Quantity Refills Last Filled Start D ate End Date sertraline (ZOLOFT) 25 mg tablet 07/27/2021 10/04/2021 added in this encounter Care Teams Microsoft Systems Engineer Relationship Specialty Start Date End Date Christ Hu PA PCP - General 07/20/18 documented as of this encounter
--- OUTSIDE RECORDS SUMMARY | 2024-05-25 02:17 | XMS_ITS | Encounter Summary ---
Author Organization [facility] Address [address] [place] [address] Care Team Providers Care Faculty Dean Name Role Phone Christ Hu Primary Care Provider [phone] Reason for Visit * Diagnostic Imaging (Routine) - Closed Specialty Diagnoses / Procedures Referred By Mal garland Referred To Contact Diagnoses Screening mammogram, encounter for Procedures Screening Mammogram Bilateral W Jerman Screening Mammogram Bilateral W Jerman Dhaval Cota MD Phone: tel: fax: [address] [address] Referral ID Status Reason Start Date Expiration Date Visits Re quested Visits Authorized [id number] Closed 07/11/2022 08/10/2023 1 1 Encounter Details Date Type Department Care Team (Latest Contact Info) Description 09/18/2022 7:17 AM CDT - 09/18/2022 11:59 PM CDT Hospital Encounter [facility] Breast Imaging [address] [place] [address] Screening mammogram, encounter for Discharge Disposition: Discharge to home or self care Social History Tobacco Use Types Packs/Day Years [...] should administer the PHQ-9) 0 10/04/2021 Comments No Sex and Gender Information Value Date Recorded Sex Assigned at Not on file Legal Sex Female 3:19 AM TECHNICAL SOLUTIONS CONSULTANT Gender Identity Not on file Sexual Orientation Not on file documented as of this encounter Medications at Time of Discharge albuterol HFA (Proventil HFA) 90 mcg/actuation inhaler Inhale 1 puff every 6 (six) hours as needed (for wheezing) 3 each 3 05/23/2021 ALPRAZolam (Xanax) 0.25 mg tablet Take 1 tablet (0.25 mg total) by mouth daily as needed for anxiety 15 tablet 05/23/2021 clobetasoL (TEMOVATE) 0.05 % external solution 06/24/2022 fluconazole (DIFLUCAN) 100 mg tablet Take 1 tablet (100 mg total) by mouth every other day 3 tablet 03/21/2022 fluocinonide (LIDEX) 0.05 % external solution Apply topically 2 (two) times a day 60 mL 11 07/31/2022 fluticasone propionate (Flonase Allergy Relief) 50 mcg/actuation nasal spray Administer 2 sprays into each nostril daily 3 each 3 07/31/2022 ibuprofen (ADVIL,MOTRIN) 800 mg tablet Take 1 tablet (800 mg total) by mouth every 6 (six) hours as needed (pain) 90 tablet 1 05/23/2021 ketoconazole (NIZORAL) 2 % shampoo Apply topically 2 (two) times a week 120 mL 11 08/01/2022 metroNIDAZOLE (METROCREAM) 0.75 % cream Apply topically 2 (two) times a day 45 g 3 07/31/2022 multivitamin (MULTIPLE VITAMINS DAILY ORAL) Rx: Multi Vitamin Daily tazarotene (AVAGE) 0.1 % cream APPLY TOPICALLY TO THE AFFECTED AREA EVERY NIGHT 06/24/2022 triamcinolone (KENALOG) 0.1 % cream 04/26/2022 benzonatate (Tessalon Perles) 100 mg capsuleIndicatio ns:Cough Take 1 capsule (100 mg total) by mouth 3 (three) times a day as needed for cough 30 capsule 1 10/04/2021 4 calcipotriene (DOVONOX) 0.005 % ointment APPLY TO AFFECTED AREAS TWICE DAILY FOR 2 WEEKS. INITIATE CALCIPOTRIENE USE AFTER 2 WEEKS OF TRIAMCINOLONE 04/26/2022 4 dulaglutide (TRULICITY) 0.75 mg/0.5 mL pen injector Inject 1 mL (1.5 mg total) under the skin every 7 days Please give 90 days 6 mL 3 07/31/2022 3 hydroCHLOROthiaz janiya (HYDRODIURIL) 25 mg tablet Take 1 tablet (25 mg total) by mouth daily 90 tablet 3 07/31/2022 4 telmisartan (Micardis) 40 mg tablet Take 1 tablet (40 mg total) by mouth daily 90 tablet 3 07/31/2022 4 documented as of this encounter Discharge Disposition Disposition Code Departure Means Destination Discharge to home or self care documented in this encounter Plan of Treatment Not on file documented as of this encounter Procedures Procedure Name Priority Date/Time Associated Diagnosis Comments SCREENING MAMMOGRAM BILATERAL W JERMAN Schedule Routine, Read Routine (OP Routine) 09/18/2022 7:38 AM CDT Screening mammogram, encounter for documented in this encounter Results * Screening Mammogram Bilateral W Jerman [...] age 40, based on guidelines of the [employer] (ACR Practice Parameter for the Performance of Screening and Diagnostic Mammography) and [employer]. For women [...] finding in either breast on mammogram. ?? us Dhaval Cota MD IMG MAMMO PROCEDURES Final Result documented in this encounter Visit Diagnoses Diagnosis Screening mammogram, encounter for documented in this encounter Care Teams Faculty Dean Relationship Specialty Start Date End Date Christ Hu PA PCP - General 07/20/18 documented as of this encounter
--- OUTSIDE RECORDS SUMMARY | 2024-05-25 02:17 | XMS_ITS | Encounter Summary ---
Author Organization [facility] Healthcare Address [address] [place] [address] Care Team Providers Care Mortician Investigator Name Role Phone Christ Hu Primary Care Provider [phone] Reason for Visit * Reason Comments Review Medications Encounter Details Date Type Department Care Team (Late st Contact Info) Description 06/04/2023 1:15 PM RESPIRATORY CARE FACULTY Office Visit [facility] Primary Care [facility] [address] [place] [address] Christ Hu PA [address] [place] [address] Primary hypertension (Primary Dx); Situational anxiety; Morbid obesity with BMI of 40.0-44.9, adult [...] on file Legal Sex Female 3:19 AM RESPIRATORY CARE FACULTY Gender Identity Not on file Sexual Orientation Not on file documented as of this encounter Last Filed Vital Signs Vital Sign Reading Time Taken Comments Blood Pressure 118/80 06/04/2023 1:43 PM RESPIRATORY CARE FACULTY Pulse 85 06/04/2023 1:43 PM RESPIRATORY CARE FACULTY Temperature 36.6 ??C (97.8 ??F) 06/04/2023 1:43 PM CS T Respiratory Rate 18 06/04/2023 1:43 PM RESPIRATORY CARE FACULTY Oxygen Saturation 91% 06/04/2023 1:43 PM RESPIRATORY CARE FACULTY Inhaled Oxygen Concentration - - Weight 92.1 kg (203 lb) 06/04/2023 1:43 PM RESPIRATORY CARE FACULTY Height 151.1 cm (4' 11.5 ) 06/04/2023 1:43 PM CS T Body Mass Index 40.31 06/04/2023 1:43 PM RESPIRATORY CARE FACULTY documented in this encounter Ordered Prescriptions Prescription Sig Dispense Quantity Refills Last Filled Start Date End Date telmisartan (Micardis) 40 mg tablet Take 1 tablet (40 mg total) by mouth daily 90 tablet 3 06/04/2023 hydroCHLOROthiazide (HYDRODIURIL) 25 mg tablet Take 1 tablet (25 mg total) by mouth daily 90 tablet 3 06/04/2023 documented in this encounter Progress Notes * Christ Hu, TUAN - 06/04/2023 1:15 PM CST Images from the original note were not included. Subjective/Objective Patient ID: Shasta Ace is a 57 y.o. female. Chief Complaint Review Medications Vitals: 06/04/23 1343 BP: 118/80 BP Location: Left arm Patient Position: Sitting Pulse: 85 Resp: 18 Temp: 36.6 ??C (97.8 ??F) TempSrc: Temporal SpO2: 91% Weight: 92.1 kg (203 lb) Height: 151.1 cm (4' 11.5 ) Patient is in for routine follow-up for the following medical conditions labs and medications. 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, Past Medical History: Diagnosis Date Anxiety Dysphagia HX OTHER MEDICAL lump in breast; Comments: BONITA 11/16/2013 - Hypertension Obesity Psoriasis Past Surgical History: Procedure Laterality Date BREAST BIOPSY Right 09/21/2015 BREAST BIOPSY Left 09/21/2015 SECTION COLECTOMY Colectomy OOPHORECTOMY Bilateral 40's OTHER SURGICAL HISTORY lump in breast: lumpectomy TOTAL ABDOMINAL HYSTERECTOMY Hysterectomy, total --40's Allergies Allergen Reactions Sulfa (Sulfonamide Antibiotics) Rash Reaction: Rash, Social History Tobacco Use Smoking status: Never Smokeless tobacco: None Substance and Sexual Activity Drug use: Never Sexual activity: None Alcohol Use: Unknown (06/04/2023) AUDIT-C Frequency of Alcohol Consumption: Monthly or less Average Number of Drinks: 1 or 2 Frequency of Binge Drinking: Not on file Family History Problem Relation Age of Onset Bladder Cancer Mother Cancer, bladder; Hypertension Mother Hypertension; Hypertension Father Hypertension; Breast cancer Neg Hx has a current medication list which includes the following prescription(s): albuterol hfa (PROVENTIL HFA), alprazolam (XANAX), benzonatate (TESSALON PERLES), calcipotriene (DOVONOX), clobetasol (TEMOVATE), dulaglutide (TRULICITY), fluconazole (DIFLUCAN), fluocinonide (LIDEX), fluticasone propionate(FLONASE ALLERGY RELIEF), hydrochlorothiazide (HYDRODIURIL), ibuprofen (ADVIL,MOTRIN), ketoconazole(NIZORAL), metronidazole (METROCREAM), multivitamin, tazarotene (AVAGE), telmisartan (MICARDIS), and triamcinolone (KENALOG). Review of Systems Constitutional: Negative for activity [...] weight reduction. Labs as ordered. F/U routine Situational anxiety Assessment & Plan: She is retiring and I am taking her off work as I am concerned stress is too much and not worth hermental health Morbid obesity with BMI of 40.0-44.9, adult (HCC) Healthy diet and weight loss No orders of the defined types were placed in this encounter. Body mass index is 40.31 kg/m??. BMI Follow-up includes: nutrition counseling, exercise counseling, and education provided. *This note is dictated using [employer] medical voice recognition software, variances in spelling and vocabulary are possible and unintentional.* TUAN Syk IRATORY CARE FACULTY documented in this encounter Miscellaneous Notes * Assessment & Plan Note - Christ Hu PA - 06/04/2023 2:34 PM CSTAssociated Problem(s): Situational anxiety She is retiring and I am taking her off work as I am concerned stress is too much and not worth hermental health IRATORY CARE FACULTY * Assessment & Plan Note - Christ Hu PA - 06/04/2023 2:33 PM CSTAssociated Problem(s): Hypertension Images from the original note were not included. This is a stable chronic condition. Monitor blood pressure, call if out of parameters as we discussed. Low sodium and caffeine diet. baby asa as discussed if applicable. Diet, exercise and weight reduction. Labs as ordered. F/U routine IRATORY CARE FACULTY documented in this encounter Plan of Treatment Not on file documented as of this encounter Visit Diagnoses Diagnosis Primary hypertension- Primary Unspecified essential hypertension Situational anxiety Morbid obesity with BMI of 40.0-44.9, adult (HCC) documented in this encounter Discontinued Medications Medication Sig Discontinue Reason Start Date End Da te benzonatate (Tessalon Perles) 100 mg capsuleIndications:Co ugh Take 1 capsule (100 mg total) by mouth 3 (three) times a day as needed for cough 10/04/2021 06/04/2023 buPROPion XL (WELLBUTRIN XL) 150 mg 24 hr tablet Take 1 tablet (150 mg total) by mouth every morning 03/05/2023 06/04/2023 calcipotriene (DOVONOX) 0.005 % ointment APPLY TO AFFECTED AREAS TWICE DAILY FOR 2 WEEKS. INITIATE CALCIPOTRIENE USE AFTER 2 WEEKS OF TRIAMCINOLONE 04/26/2022 06/04/2023 hydroCHLOROthiazide (HYDRODIURIL) 25 mg tablet Take 1 tablet (25 mg total) by mouth daily Reorder 07/31/2022 06/04/2023 telmisartan (Micardis) 40 mg tablet Take 1 tablet (40 mg total) by mouth daily Reorder 07/31/2022 06/04/2023 documented as of this encounter Historical Medications * This list may reflect changes made after this encounter. Medication Sig Dispense Quantity Refills Last Filled Start D ate End Date fluocinolone (DERMA-SMOOTH/FS) 0.01 % oil 04/07/2023 Skyrizi 150 mg/mL pen injector 05/15/2023 added in this encounter Care Teams Mortician Investigator Relationship Specialty Start Date End Date Christ Hu PA PCP - General 07/20/18 documented as of this encounter
--- OUTSIDE RECORDS SUMMARY | 2024-05-25 02:17 | XMS_ITS | Encounter Summary ---
Author Organization [facility] Healthcare Address [address] [place] [address] Care Team Providers Care Student Services Counselor Name Role Phone Christ Hu Primary Care Provider [phone] Reason for Visit * Reason Comments Anxiety Stress at work Encounter Details Date Type Department Care Team ([facility] st Contact Info) Description 03/05/2023 7:00 AM CDT Office Visit [facility] Medical Group Primary Care 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 Gender Identity Not on file Sexual Orientation Not on file documented as of this encounter Last Filed Vital Signs Vital Sign Reading Time Taken Comments Blood Pressure 124/86 03/05/2023 7:11 AM CDT Pulse 88 03/05/2023 7:11 AM CDT Temperature 36.5 ??C (97.7 ??F) 03/05/2023 7:11 AM CD T Respiratory Rate 16 03/05/2023 7:11 AM CDT Oxygen Saturation - - Inhaled Oxygen Concentration - - Weight 91 kg (200 lb 9.6 oz) 03/05/2023 7:11 AM CDT Height 151.1 cm (4' 11.5 ) 03/05/2023 7:11 AM CD T Body Mass Index 39.84 03/05/2023 7:11 AM CDT documented in this encounter Ordered Prescriptions Prescription Sig Dispense Quantity Refills Last Filled Start Date End Date buPROPion XL (WELLBUTRIN XL) 150 mg 24 hr tablet Take 1 tablet (150 mg total) by mouth every morning 90 tablet 4 03/05/2023 buPROPion XL (WELLBUTRIN XL) 150 mg 24 hr tablet Take 1 tablet (150 mg total) by mouth every morning 90 tablet 4 03/05/2023 4 documented in this encounter Progress Notes * Christ Hu, TUAN - 03/05/2023 7:00 AM CDT Images from the original note were not included. Subjective/Objective Patient ID: Shasta Ace is a 57 y.o. female. Chief Complaint Anxiety (Stress at work ) Vitals: 03/05/23 0711 BP: 124/86 BP Location: Left arm Patient Position: Sitting Pulse: 88 Resp: 16 Temp: 36.5 ??C (97.7 ??F) TempSrc: Temporal Weight: 91 kg (200 lb 9.6 oz) Height: 151.1 cm (4' 11.5 ) Patient is in for routine follow-up for the following medical conditions labs and medications. 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 Labs as ordered. F/U routine Obesity, unspecified obesity severity, unspecified obesity type Assessment & Plan: Can not get approved for ozempic, trying trulicity off label and understands that and is doing well Situational anxiety Assessment & Plan: Medications as ordered, f/u 6 weeks, may call for letter to be off for a couple weeks due to anxiety BMI 39.0-39.9,adult Assessment & Plan: As above Other orders - buPROPion XL (WELLBUTRIN XL) 150 mg 24 hr tablet; Take 1 tablet (150 mg total) by mouth every morning - buPROPion XL (WELLBUTRIN XL) 150 mg 24 hr tablet; Take 1 tablet (150 mg total) by mouth every morning No orders of the defined types were placed in this encounter. Body mass index is 39.84 kg/m??. BMI Follow-up includes: nutrition counseling, exercise counseling, and education provided. *This note is dictated using [employer] medical voice recognition software, variances in spelling and vocabulary are possible and unintentional.* TUAN Sky documented in this encounter Miscellaneous Notes * Assessment & Plan Note - Christ Hu PA - 03/05/2023 7:33 AM CDTAssociated Problem(s): BMI 39.0-39.9,adult As above * Assessment & Plan Note - Christ Hu PA - 03/05/2023 7:33 AM CDTAssociated Problem(s): Situational anxiety Medications as ordered, f/u 6 weeks, may call for letter to be off for a couple weeks due to anxiety * Assessment & Plan Note - Christ Hu PA - 03/05/2023 7:33 AM CDTAssociated Problem(s): Obesity, unspecified obesity severity, unspecified obesity type Can not get approved for ozempic, trying trulicity off label and understands that and is doing well * Assessment & Plan Note - Christ Hu PA - 03/05/2023 7:33 AM CDTAssociated Problem(s): Hypertension Images from the original [...] Diagnosis Primary hypertension- Primary Unspecified essential hypertension Obesity, unspecified obesity severity, unspecified obesity type Situational anxiety BMI 39.0-39.9,adult documented in this encounter Care Teams Student Services Counselor Relationship Specialty Start Date End Date Christ Hu PA PCP - General 07/20/18 documented as of this encounter
--- OUTSIDE RECORDS SUMMARY | 2024-05-25 02:17 | XMS_ITS | Encounter Summary ---
Author Organization [facility] Medical Group Address 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 Gender Identity Not on file Sexual Orientation Not on file documented as of this encounter Ordered Prescriptions Prescription Sig Dispense Quantity Refills Last Filled Start Date End Date dulaglutide (TRULICITY) 0.75 mg/0.5 mL pen injector Inject 0.5 mL (0.75 mg total) under the skin every 7 days Please give 90 days 6 mL 3 10/08/2022 documented in this encounter Plan of Treatment Not on file documented as of this encounter Visit Diagnoses Not on filedocumented in this encounter Discontinued Medications Medication Sig Discontinue Reason Start Date End Da te dulaglutide (TRULICITY) 0.75 mg/0.5 mL pen injector Inject 1 mL (1.5 mg total) under the skin every 7 days Please give 90 days Reorder 07/31/2022 10/08/2022 documented as of this encounter Care Teams Hospice Office Coordinator Relationship Specialty Start Date End Date Christ Hu PA PCP - General 07/20/18 documented as of this encounter
--- OUTSIDE RECORDS SUMMARY | 2024-05-25 02:17 | XMS_ITS | Encounter Summary ---
Author Organization [facility] Medical Group Address [address] [place] [address] Care Team Providers Care Buffer Inflated Pad Name Role Phone Christ Hu Primary Care Provider [phone] Reason for Visit * Reason Comments Cough Covid positive mid A pril cough since then Encounter Details Date Type Department Care Team (Late st Contact Info) Description 10/04/2021 4:00 PM CDT Office Visit [facility] Medical Group Primary Care [address] [place] [address] Christ Hu PA [address] [place] [address] Dysphagia, unspecified type (Primary Dx); Primary hypertension; Situational anxiety; Cough Social History Tobacco Use Types Packs/Day Years [...] on file 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 Gender Identity Not on file Sexual Orientation Not on file documented as of this encounter Last Filed Vital Signs Vital Sign Reading Time Taken Comments Blood Pressure 122/80 10/04/2021 4:06 PM CDT Pulse 72 10/04/2021 4:06 PM CDT Temperature 35.4 ??C (95.7 ??F) 10/04/2021 4:06 PM CD T Respiratory Rate 18 10/04/2021 4:06 PM CDT Oxygen Saturation 95% 10/04/2021 4:06 PM CDT Inhaled Oxygen Concentration - - Weight 93.4 kg (206 lb) 10/04/2021 4:06 PM CDT Height 152.4 cm (5') 10/04/2021 4:06 PM CDT Body Mass Index 40.23 10/04/2021 4:06 PM CDT documented in this encounter Ordered Prescriptions Prescription Sig Dispense Quantity Refills Last Filled Start Date End Date guaiFENesin-codein e (GUAITUSS AC) liquid 100-10 mg/5 mL Take 5-10 mL by mouth every 4 (four) hours as needed for cough 120 mL 10/04/2021 2 benzonatate (Tessalon Perles) 100 mg capsuleIndications :Cough Take 1 capsule (100 mg total) by mouth 3 (three) times a day as needed for cough 30 capsule 1 10/04/2021 4 methylPREDNISolone (MEDROL DOSEPACK) 4 mg Dosepack Take as directed on package. 21 tablet 10/04/2021 2 documented in this encounter Progress Notes * Christ Hu, TUAN - 10/04/2021 4:00 PM CDT Images from the original note were not included. Subjective/Objective Patient ID: Shasta Ace is a 55 y.o. female. Chief Complaint Cough (Covid positive mid August cough since then) Vitals: 10/04/21 1606 BP: 122/80 BP Location: Left arm Patient Position: Sitting Pulse: 72 Resp: 18 Temp: (!) 35.4 ??C (95.7 ??F) TempSrc: Temporal SpO2: 95% Weight: 93.4 kg (206 lb) Height: 152.4 cm (5') Patient is in for routine follow-up for the following medical conditions labs and medications. Patient is in for follow-up for the following medical conditions. Diagnoses and all orders for this visit: -non-smoker -Exercise:some -colonoscopy: 2 years ago -shingles: we discussed -flu: Decline -Covid 19: UTD -specialist: -mammogram: Ordered -bone density: -pap: MARIA GUADALUPE/BSO Situational anxiety - this is good off medications, she stopped her meds Essential hypertension - taking meds Dysphagia, unspecified type - this is improved NEW 1. Cough: started right after easter she got covid, she felt bad, congested, nasal drainage and hashad cough since, sometimes with clear mucous, started mucinex Past Medical History: Diagnosis Date ??? Anxiety [...] Hypertension Mother Hypertension; ??? Hypertension Father Hypertension; has a current medication list which includes the following prescription(s): albuterol hfa (PROVENTIL HFA), alprazolam (XANAX), emollient combination no.25 (ELETONE), fluticasone propionate (FLONASE ALLERGY RELIEF), hydrochlorothiazide (HYDRODIURIL), ibuprofen (ADVIL,MOTRIN), multivitamin, and telmisartan (MICARDIS). Review of Systems Constitutional: Negative. Negative for activity change, appetite change, chills, fatigue, fever andunexpected weight change. HENT: Negative. Negative for congestion, ear discharge, ear pain, hearing loss, mouth sores, nosebleeds, sinus pressure, sinus pain, tinnitus and trouble swallowing. Eyes: Negative. Negative for photophobia, pain, redness and visual disturbance. Respiratory: Negative. Negative for cough, chest tightness, shortness of breath and wheezing. Cardiovascular: Negative. Negative for chest pain, palpitations and leg swelling. Gastrointestinal: Negative. Negative for abdominal pain, blood in stool, constipation and diarrhea. Endocrine: Negative for cold intolerance, heat intolerance, polydipsia, polyphagia and polyuria. Genitourinary: Negative. Negative for difficulty urinating, dysuria, flank pain, frequency, hematuria and urgency. Musculoskeletal: Negative. Negative for arthralgias, back pain, gait problem, joint swelling and myalgias. Skin: Negative for color change and pallor. Allergic/Immunologic: Negative for immunocompromised state. Neurological: Negative for dizziness, seizures, syncope, light-headedness and headaches. Hematological: Does not bruise/bleed easily. Psychiatric/Behavioral: Negative. Negative for sleep disturbance and suicidal ideas. Physical Exam Constitutional: General: She is not in acute distress. Appearance: She is well-developed. HENT: Head: Normocephalic. Right Ear: External ear normal. Left Ear: External ear normal. Nose: Nose normal. Eyes: General: Right eye: No discharge. Left eye: No discharge. Conjunctiva/sclera: Conjunctivae normal. Pupils: Pupils are equal, round, and reactive to light. Neck: Thyroid: No thyromegaly. Vascular: No JVD. Trachea: No tracheal deviation. Cardiovascular: Rate and Rhythm: Normal rate and regular rhythm. Heart sounds: Normal heart sounds. No murmur heard. Pulmonary: Effort: Pulmonary effort is normal. No respiratory distress. Breath sounds: Normal breath sounds. No wheezing or rales. Abdominal: General: Bowel sounds are normal. There is no distension. Palpations: There is no mass. Tenderness: There is no abdominal tenderness. Musculoskeletal: General: No tenderness or deformity. Cervical back: Neck supple. Lymphadenopathy: Cervical: No cervical adenopathy. Skin: General: Skin is warm. Findings: No erythema or rash. Neurological: Mental Status: She is oriented to person, place, and time. Assessment/Plan Diagnoses and all orders for this visit: Dysphagia, unspecified type (Primary) Assessment & Plan: This is well controlled will continue to follow continue current med Primary hypertension Assessment & Plan: This is a stable chronic condition. Monitor blood pressure, call if out of parameters as we discussed. Low sodium and caffeine diet. baby asa as discussed if applicable. Diet, exercise and weight reduction. Labs as ordered. F/U routine Situational anxiety Assessment & Plan: Patient stopped her medications states his she is doing well we agreed to follow there is no SI HI Cough Assessment & Plan: Patient's exam is normal I suspect she just been chronically coughing am going to try a short course of steroids and cough suppressants if this does not work we discussed getting a chest x-ray or CT Other orders - methylPREDNISolone (MEDROL DOSEPACK) 4 mg Dosepack; Take as directed on package. - benzonatate (Tessalon Perles) 100 mg capsule; Take 1 capsule (100 mg total) by mouth 3 (three) times a day as needed for cough - guaiFENesin-codeine (GUAITUSS AC) liquid 100-10 mg/5 mL; Take 5-10 mL by mouth every 4 (four) hours as needed for cough No orders of the defined types were placed in this encounter. Body mass index is 40.23 kg/m??. BMI Follow-up includes: nutrition counseling and exercise counseling. *This note is dictated using [employer] medical voice recognition software, variances in spelling and vocabulary are possible and unintentional.* TUAN Sky documented in this encounter Miscellaneous Notes * Assessment & Plan Note - Christ Hu PA - 10/04/2021 4:20 PM CDTAssociated Problem(s): Situational anxiety Patient stopped her medications states his she is doing well we agreed to follow there is no SI HI * Assessment & Plan Note - Christ Hu PA - 10/04/2021 4:20 PM CDTAssociated Problem(s): Hypertension This is a stable chronic condition. Monitor blood pressure, call if out of parameters as we discussed. Low sodium and caffeine diet. baby asa as discussed if applicable. Diet, exercise and weight reduction. Labs as ordered. F/U routine * Assessment & Plan Note - Christ Hu PA - 10/04/2021 4:20 PM CDTAssociated Problem(s): Dysphagia This is well controlled will continue to follow continue current med * Assessment & Plan Note - Christ Hu PA - 10/04/2021 4:20 PM CDTAssociated Problem(s): Cough Patient's exam is normal I suspect she just been chronically coughing am going to try a short course of steroids and cough suppressants if this does not work we discussed getting a chest x-ray or CT documented in this encounter Plan of Treatment Not on file documented as of this encounter Visit Diagnoses Diagnosis Dysphagia, unspecified type- Primary Primary hypertension Unspecified essential hypertension Situational anxiety Cough documented in this encounter Discontinued Medications Medication Sig Discontinue Reason Start Date End Da te busPIRone (BUSPAR) 7.5 mg tabletIndications:Gener alized Anxiety Disorder Take 1 tablet (7.5 mg total) by mouth 3 (three) times a day 05/23/2021 10/04/2021 sertraline (ZOLOFT) 25 mg tablet 07/27/2021 10/04/2021 phentermine (ADIPEX-P) 37.5 mg tabletIndications:Weigh t Loss Management for Obese Patient (BMI >= 30) Take 1 tablet (37.5 mg total) by mouth daily before breakfast 09/05/2021 10/04/2021 documented as of this encounter Care Teams Buffer Inflated Pad Relationship Specialty Start Date End Date Christ Hu PA PCP - General 07/20/18 documented as of this encounter
--- OUTSIDE RECORDS SUMMARY | 2024-05-25 02:17 | XMS_ITS | Encounter Summary ---
Author Organization [facility] Medical Group Address [address] [place] [address] Care Team Providers Care Care Program Director Name Role Phone Christ Hu Primary Care Provider [phone] Reason for Visit * Reason Onset Date Comments Appointment Request 12/30/2022 Encounter Details Date Type Department Care Team (Late st Contact Info) Description 12/30/2022 Telephone [facility] Medical Group Primary Care [address] [place] [address] Christ Hu PA [address] [place] [address] Appointment Request Social History Tobacco Use Types Packs/Day Years [...] on file 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 Also advised patient if there is a prior auth that would need to be done that we no longer do prior auth for weight loss * Telephone Encounter - Betzaida Saunders MA - 12/30/2022 5:28 PM CDT Notified patient--States that she is on Trulicity and hit a plato. Is wanting to try Mounjaro. * Telephone Encounter - Betzaida Saunders MA - 12/30/2022 3:09 PM CDT See message * Telephone Encounter - Liz Yu - 12/30/2022 10:52 AM CDT Appointment Request What visit type does the patient need? Visit Type: Established Patient What is the reason for the visit? f/u (med evaluation) What is the reason we were unable to schedule the appointment? Current appointment availability didnot meet patient's need. Patient seeking Next-Day (PA's next available, 03/2023) If applicable, were all members of the patient's PCP care team offered (e.g., nurse practioner(s), physician insurance account assistant(s)) ? N/A Caller's Callback #: [phone] (seeking c/b today) Additional Comments: Patient seeking Add-on scheduling Does message need to be routed? Yes-Action Needed documented in this encounter Plan of Treatment Not on file documented as of this encounter Visit Diagnoses Not on filedocumented in this encounter Care Teams Care Program Director Relationship Specialty Start Date End Date Christ Hu PA PCP - General 07/20/18 documented as of this encounter
--- OUTSIDE RECORDS SUMMARY | 2024-05-25 02:17 | XMS_ITS | Encounter Summary ---
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 Gender Identity Not on file Sexual Orientation Not on file documented as of this encounter Ordered Prescriptions Prescription Sig Dispense Quantity Refills Last Filled Start Date End Date fluconazole (DIFLUCAN) 100 mg tablet Take 1 tablet (100 mg total) by mouth every other day 3 tablet 03/21/2022 documented in this encounter Plan of Treatment Not on file documented as of this encounter Visit Diagnoses Not on filedocumented in this encounter Discontinued Medications Medication Sig Discontinue Reason Start Date End Da te fluconazole (DIFLUCAN) 100 mg tablet Take 1 tablet (100 mg total) by mouth every other day Reorder 03/21/2022 03/21/2022 documented as of this encounter Care Teams Equipment Specialist Relationship Specialty Start Date End Date Christ Hu PA PCP - General 07/20/18 documented as of this encounter
--- OUTSIDE RECORDS SUMMARY | 2024-05-25 02:17 | XMS_ITS | Encounter Summary ---
Author Organization [facility] Address [address] [place] [address] Care Team Providers Care Rn Intake Name Role Phone Christ Hu Primary Care Provider [phone] Reason for Visit * Reason Comments discuss breast reduction Encounter Details Date Type Department Care Team (Late st Contact Info) Description 05/23/2021 1:00 PM JUNIOR STAFF ACCOUNTANT Office Visit [facility] Primary Care [address] [place] [address] Christ Hu PA [address] [place] [address] Situational anxiety (Primary Dx); Primary hypertension; Dysphagia, unspecified type; Obesity, unspecified obesity severity, unspecified obesity type; Chronic bilateral low back pain with left-sided sciatica; Chronic pain of both shoulders; Chronic pruritic rash in adult; Chronic bilateral thoracic back pain Social History Tobacco Use Types Packs/Day Years Used Date Smoking Tobacco: Never Alcohol Use Standard Drinks/Week Comments Yes 0 (1 standard drink = 0.6 oz pur e alcohol) AUDIT-C Answer Date Recorded Q1: How often do you have a drink containing alc ohol? Monthly or less 05/23/2021 Q2: How many drinks containi ng alcohol do you have on a typical day when you are drinking? 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 Gender Identity Not on file Sexual Orientation Not on file documented as of this encounter Last Filed Vital Signs Vital Sign Reading Time Taken Comments Blood Pressure 120/80 05/23/2021 1:09 PM JUNIOR STAFF ACCOUNTANT Pulse 92 05/23/2021 1:09 PM JUNIOR STAFF ACCOUNTANT Temperature 36 ??C (96.8 ??F) 05/23/2021 1:09 PM JUNIOR STAFF ACCOUNTANT Respiratory Rate 16 05/23/2021 1:09 PM JUNIOR STAFF ACCOUNTANT Oxygen Saturation 97% 05/23/2021 1:09 PM JUNIOR STAFF ACCOUNTANT Inhaled Oxygen Concentration - - Weight 94.3 kg (208 lb) 05/23/2021 1:09 PM JUNIOR STAFF ACCOUNTANT Height 152.4 cm (5') 05/23/2021 1:09 PM JUNIOR STAFF ACCOUNTANT Body Mass Index 40.62 05/23/2021 1:09 PM JUNIOR STAFF ACCOUNTANT documented in this encounter Ordered Prescriptions Prescription Sig Dispense Quantity Refills Last Filled Start Date End Date ibuprofen (ADVIL,MOTRIN) 800 mg tablet Take 1 tablet (800 mg total) by mouth every 6 (six) hours as needed (pain) 90 tablet 1 05/23/2021 albuterol HFA (Proventil HFA) 90 mcg/actuation inhaler Inhale 1 puff every 6 (six) hours as needed (for wheezing) 3 each 3 05/23/2021 ALPRAZolam (Xanax) 0.25 mg tablet Take 1 tablet (0.25 mg total) by mouth daily as needed for anxiety 15 tablet 05/23/2021 telmisartan (Micardis) 40 mg tablet Take 1 tablet (40 mg total) by mouth daily 90 tablet 3 05/23/2021 3 hydroCHLOROthiazid e (HYDRODIURIL) 25 mg tablet Take 1 tablet (25 mg total) by mouth daily 90 tablet 3 05/23/2021 3 fluticasone propionate (Flonase Allergy Relief) 50 mcg/actuation nasal spray Administer 2 sprays into each nostril daily 3 each 3 05/23/2021 3 busPIRone (BUSPAR) 7.5 mg tabletIndications: Generalized Anxiety Disorder Take 1 tablet (7.5 mg total) by mouth 3 (three) times a day 180 tablet 3 05/23/2021 2 documented in this encounter Progress Notes * Christ Hu, TUAN - 05/23/2021 1:00 PM CST Images from the original note were not included. Subjective/Objective Patient ID: Shasta Ace is a 55 y.o. female. Chief Complaint discuss breast reduction Vitals: 05/23/21 1309 BP: 120/80 BP Location: Left arm Patient Position: Sitting Pulse: 92 Resp: 16 Temp: 36 ??C (96.8 ??F) TempSrc: Temporal SpO2: 97% Weight: 94.3 kg (208 lb) Height: 152.4 cm (5') Patient is in for routine follow-up for the following medical conditions labs and medications. Patient is in for routine follow-up for the following medical conditions. Diagnoses and all orders for this visit: -non-smoker -Exercise:some -colonoscopy: 2 years ago -shingles: we discussed -flu: Decline -Covid 19: UTD -specialist: -mammogram: Ordered -bone density: -pap: MARIA GUADALUPE/BSO Situational anxiety - this is present, tolerating not use to take zoloft Essential hypertension - taking meds Dysphagia, unspecified type - this is improved Breast reduction -chronic rash under breast, been to derm, tried medications, failed and not chronically irritated, also chronic mid and upper back pain, bra strapping, tried numerous bra's, caused pain under bra, failed backed treatments. This has been going on for 4 years and getting worse Past Medical History: Diagnosis Date ??? Anxiety [...] Normal breath sounds. No wheezing or rales. Chest: Comments: Breast are pendulous and measure on right 28 cm and left 30 cm from manubrium Abdominal: General: Bowel sounds are normal. There [...] anxiety (Primary) Assessment & Plan: This is currently controlled will continue current meds and follow up routine Primary hypertension Assessment & Plan: This is a stable chronic condition. Monitor blood pressure, call if out of parameters as we discussed. Low sodium and caffeine diet. baby asa as discussed if applicable. Diet, exercise and weight reduction. Labs as ordered. F/U routine Dysphagia, unspecified type Assessment & Plan: This is currently not an issue continue to watch diet follow-up routine Obesity, unspecified obesity severity, unspecified obesity type Assessment & Plan: Healthy diet exercise and weight reduction Chronic bilateral low back pain with left-sided sciatica Assessment & Plan: I strongly suspect this is due to her large pendulous breasts which is also causing bra strap in amgoing to have her set up for evaluation for breast reduction Chronic pain of both shoulders - Ambulatory referral to Plastic Surgery; Future Chronic pruritic rash in adult - Ambulatory referral to Plastic Surgery; Future Chronic bilateral thoracic back pain - Ambulatory referral to Plastic Surgery; Future Other orders - busPIRone (BUSPAR) 7.5 mg tablet; Take 1 tablet (7.5 mg total) by mouth 3 (three) times a day - ALPRAZolam (Xanax) 0.25 mg tablet; Take 1 tablet (0.25 mg total) by mouth daily as needed for anxiety - albuterol HFA (Proventil HFA) 90 mcg/actuation inhaler; Inhale 1 puff every 6 (six) hours as needed (for wheezing) - fluticasone propionate (Flonase Allergy Relief) 50 mcg/actuation nasal spray; Administer 2 spraysinto each nostril daily - hydroCHLOROthiazide (HYDRODIURIL) 25 mg tablet; Take 1 tablet (25 mg total) by mouth daily - telmisartan (Micardis) 40 mg tablet; Take 1 tablet (40 mg total) by mouth daily - ibuprofen (ADVIL,MOTRIN) 800 mg tablet; Take 1 tablet (800 mg total) by mouth every 6 (six) hoursas needed (pain) Orders Placed This Encounter Procedures ??? Ambulatory referral to Plastic Surgery Long time patient of mine with large pendulous breast with chronic under breast rash and pain, shoulder strapping, mid and upper back pain, failed all attempts of treatment. Please see, eval and treat with breast reduction if appropriate Standing Status: Future Standing Expiration Date: 11/20/2021 Referral Priority: Routine Referral Type: Consultation Referral Reason: Specialty Services Required Referral Location: External Order Requested Specialty: Plastic Surgery Number of Visits Requested: 1 Body mass index is 40.62 kg/m??. BMI Follow-up includes: nutrition counseling and exercise counseling. *This note is dictated using [employer] medical voice recognition software, variances in spelling and vocabulary are possible and unintentional.* TUAN Sky OR STAFF ACCOUNTANT documented in this encounter Miscellaneous Notes * Assessment & Plan Note - Christ Hu PA - 05/24/2021 6:29 AM CSTAssociated Problem(s): Dysphagia This is currently not an issue continue to watch diet follow-up routine OR STAFF ACCOUNTANT * Assessment & Plan Note - Christ Hu PA - 05/24/2021 6:29 AM CSTAssociated Problem(s): Hypertension This is a stable chronic condition. Monitor blood pressure, call if out of parameters as we discussed. Low sodium and caffeine diet. baby asa as discussed if applicable. Diet, exercise and weight reduction. Labs as ordered. F/U routine OR STAFF ACCOUNTANT * Assessment & Plan Note - Christ Hu PA - 05/24/2021 6:29 AM CSTAssociated Problem(s): Lumbago with sciatica, left side I strongly suspect this is due to her large pendulous breasts which is also causing bra strap in amgoing to have her set up for evaluation for breast reduction OR STAFF ACCOUNTANT * Assessment & Plan Note - Christ Hu PA - 05/24/2021 6:29 AM CSTAssociated Problem(s): Obesity, unspecified obesity severity, unspecified obesity type Healthy diet exercise and weight reduction OR STAFF ACCOUNTANT * Assessment & Plan Note - Christ Hu PA - 05/24/2021 6:28 AM CSTAssociated Problem(s): Situational anxiety This is currently controlled will continue current meds and follow up routine OR STAFF ACCOUNTANT documented in this encounter Plan of Treatment Not on file documented as of this encounter Visit Diagnoses Diagnosis Situational anxiety- Primary Primary hypertension Unspecified essential hypertension Dysphagia, unspecified type Obesity, unspecified obesity severity, unspecified obesity type Chronic bilateral low back pain with left-sided sciatica Chronic pain of both shoulders Chronic pruritic rash in adult Chronic bilateral thoracic back pain documented in this encounter Discontinued Medications Medication Sig Discontinue Reason Start Date End Da te sertraline (ZOLOFT) 25 mg tabletIndications:Situ ational anxiety Take 1 tablet (25 mg total) by mouth daily 12/19/2020 05/23/2021 ALPRAZolam (XANAX) 0.25 mg tablet 0.25 mg daily as needed Reorder 05/23/2021 albuterol HFA (Proventil HFA) 90 mcg/actuation inhaler Inhale 1 puff every 6 (six) hours as needed (for wheezing) Reorder 01/10/2020 05/23/2021 fluticasone propionate (Flonase Allergy Relief) 50 mcg/actuation nasal spray Administer 2 sprays into each nostril daily Reorder 11/27/2020 05/23/2021 hydroCHLOROthiazide (HYDRODIURIL) 25 mg tablet Take 1 tablet (25 mg total) by mouth daily Reorder 11/27/2020 05/23/2021 telmisartan (Micardis) 40 mg tablet Take 1 tablet (40 mg total) by mouth daily Reorder 11/27/2020 05/23/2021 ibuprofen (ADVIL,MOTRIN) 800 mg tablet Take 1 tablet (800 mg total) by mouth every 6 (six) hours as needed (pain) Reorder 11/27/2020 05/23/2021 documented as of this encounter Care Teams Rn Intake Relationship Specialty Start Date End Date Christ Hu PA PCP - General 07/20/18 documented as of this encounter
--- OUTSIDE RECORDS SUMMARY | 2024-05-25 02:17 | XMS_ITS | Encounter Summary ---
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 Offered appt with another provider for Friday but patient is wanting to see Sandi on Feb 25. Did schedule patient to see Francisco Javierer on Friday. Advised patient that if the rash gets worse that [facility] or call to see if one of our providers can see her tomorrow. Patient verbally understands. * Telephone Encounter - Feli Savage RN - 02/21/2022 3:34 PM CDT Reason for Disposition Red, moist, irritated area between skin folds (or under larger breasts) Protocols used: Rash or Redness - [id number] 56 y/o pt c/o rash under both breasts, red, burning, itching, open area under left breast worse x 3weeks. No OV availability with PA today or tomorrow. Pt hopeful for OV with PA Friday, RN unable touse SDA slot>24 hours, please advise pt. Would appreciate if PA could call in Rx to help with rash. Willie Prakash Martin on file. Offered CC Edw, pt prefers PA. Denies skin changes on breast or nipples. States saw light out examiner in the past that gave her some compound, but it only thinned her skin, and did not resolve the rash. * Telephone Encounter - Feli Savage RN - 02/21/2022 3:24 PM CDT Regarding: rash under breast open wound ----- Message from Patricia Hearn MA sent at 02/21/2022 2:24 PM CDT ----- Symptom Based Call Chief Complaint: rash under breast open wound Did you review 911/Red Flag List?Yes Duration: within the last 3 weeks ago Why was appointment not scheduled? None available Caller's Callback #: [phone] Additional Comments: getting bigger and angry looking Does message need to be routed? Yes-Action Needed documented in this encounter Plan of Treatment Not on file documented as of this encounter Visit Diagnoses Not on filedocumented in this encounter Care Teams Concrete Pavement Installer Relationship Specialty Start Date End Date Christ Hu PA PCP - General 07/20/18 documented as of this encounter
--- OUTSIDE RECORDS SUMMARY | 2024-05-25 02:17 | XMS_ITS | Encounter Summary ---
Author Organization [facility] Address [address] [place] [address] Care Team Providers Care Brush Worker Name Role Phone Christ Hu Primary Care Provider [phone] Reason for Visit * Reason Comments Weight Management Encounter Details Date Type Department Care Team (Late st Contact Info) Description 08/21/2021 11:15 AM CDT Office Visit [facility] Primary Care [address] [place] [address] Christ Hu PA [address] [place] [address] Dysphagia, unspecified type (Primary Dx); Primary hypertension; Chronic bilateral low back pain with left-sided sciatica; Obesity, unspecified obesity severity, unspecified obesity type; Rosacea; Situational anxiety; Morbid obesity with BMI of [...] on file 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 Gender Identity Not on file Sexual Orientation Not on file documented as of this encounter Last Filed Vital Signs Vital Sign Reading Time Taken Comments Blood Pressure 120/80 08/21/2021 11:18 AM CDT Pulse 81 08/21/2021 11:18 AM CDT Temperature 36 ??C (96.8 ??F) 08/21/2021 11:18 AM CDT Respiratory Rate 16 08/21/2021 11:18 AM CDT Oxygen Saturation 96% 08/21/2021 11:18 AM CDT Inhaled Oxygen Concentration - - Weight 94.8 kg (209 lb) 08/21/2021 11:18 AM CDT Height 152.4 cm (5') 08/21/2021 11:18 AM CDT Body Mass Index 40.82 08/21/2021 11:18 AM CDT documented in this encounter Ordered Prescriptions Prescription Sig Dispense Quantity Refills Last Filled Start Date End Date metroNIDAZOLE (METROCREAM) 0.75 % creamIndications:A cne Rosacea Apply twice daily to rosacea 45 g 2 08/21/2021 2 documented in this encounter Progress Notes * Christ Hu, TUAN - 08/21/2021 11:15 AM CDT Images from the original note were not included. Subjective/Objective Patient ID: Shasta Ace is a 55 y.o. female. Chief Complaint Weight Management Vitals: 08/21/21 1118 BP: 120/80 BP Location: Left arm Patient Position: Sitting Pulse: 81 Resp: 16 Temp: 36 ??C (96.8 ??F) TempSrc: Temporal SpO2: 96% Weight: 94.8 kg (209 lb) Height: 152.4 cm (5') Patient is in for routine follow-up for the following medical conditions labs and medications. Patient is in for routine follow-up for the following medical conditions. Diagnoses and all orders for this visit: Dysphagia, unspecified type (Primary) -this is resolved Primary hypertension -taking meds Chronic bilateral low back pain with left-sided sciatica -good now Obesity, unspecified obesity severity, unspecified obesity type -wants something to help Rosacea -This is mild Situational anxiety -fair control Past Medical History: Diagnosis Date ??? Anxiety [...] prescription(s): albuterol hfa (PROVENTIL HFA), alprazolam (XANAX), buspirone (BUSPAR), fluticasone propionate (FLONASE ALLERGY RELIEF), hydrochlorothiazide (HYDRODIURIL), [...] Dysphagia, unspecified type (Primary) Assessment & Plan: resolved Primary hypertension Assessment & Plan: This is a stable chronic condition. Monitor blood pressure, call if out of parameters as we discussed. Low sodium and caffeine diet. baby asa as discussed if applicable. Diet, exercise and weight reduction. Labs as ordered. F/U routine Chronic bilateral low back pain with left-sided sciatica Assessment & Plan: Due to breast Obesity, unspecified obesity severity, unspecified obesity type Assessment & Plan: Sending to Dr Ani Roa Assessment & Plan: Medications as ordered Orders: - metroNIDAZOLE (METROCREAM) 0.75 % cream; Apply twice daily to rosacea Situational anxiety Assessment & Plan: controlled Morbid obesity with BMI of 40.0-44.9, adult (HCC) No orders of the defined types were placed in this encounter. Body mass index is 40.82 kg/m??. BMI Follow-up includes: nutrition counseling and exercise counseling. *This note is dictated using [employer] medical voice recognition software, variances in spelling and vocabulary are possible and unintentional.* TUAN Sky documented in this encounter Miscellaneous Notes * Assessment & Plan Note - Christ Hu PA - 08/21/2021 11:30 AM CDT Associated Problem(s): Situational anxiety controlled * Assessment & Plan Note - Christ Hu PA - 08/21/2021 11:29 AM CDT Associated Problem(s): Rosacea Medications as ordered * Assessment & Plan Note - Christ Hu PA - 08/21/2021 11:29 AM CDT Associated Problem(s): Obesity, unspecified obesity severity, unspecified obesity type Sending to Dr Law * Assessment & Plan Note - Christ Hu PA - 08/21/2021 11:29 AM CDT Associated Problem(s): Lumbago with sciatica, left side Due to breast * Assessment & Plan Note - Christ Hu PA - 08/21/2021 11:29 AM CDT Associated Problem(s): Hypertension Images from the original note were not included. This is a stable chronic condition. Monitor blood pressure, call if out of parameters as we discussed. Low sodium and caffeine diet. baby asa as discussed if applicable. Diet, exercise and weight reduction. Labs as ordered. F/U routine * Assessment & Plan Note - Christ Hu PA - 08/21/2021 11:29 AM CDT Associated Problem(s): Dysphagia resolved documented in this encounter Plan of Treatment Not on file documented as of this encounter Visit Diagnoses Diagnosis Dysphagia, unspecified type- Primary Primary hypertension Unspecified essential hypertension Chronic bilateral low back pain with left-sided sciatica Obesity, unspecified obesity severity, unspecified obesity type Rosacea Situational anxiety Morbid obesity with BMI of 40.0-44.9, adult (HCC) documented in this encounter Care Teams Brush Worker Relationship Specialty Start Date End Date Christ Hu PA PCP - General 07/20/18 documented as of this encounter
--- OUTSIDE RECORDS SUMMARY | 2024-05-25 02:17 | XMS_ITS | Encounter Summary ---
Author Organization [facility] Healthcare Address [address] [place] [address] Care Team Providers Care Crisis Mental Health Therapist Name Role Phone Christ Hu Primary Care Provider [phone] Reason for Referral * Diagnostic Imaging (Routine) - Closed Specialty Diagnoses / Procedures Referred By Mal garland Referred To Contact Diagnoses Acute pain of right knee Procedures XR Knee Right 3 Vw Christ Hu PA Phone: tel: fax: [address] [address] Referral ID Status Reason Start Date Expiration Date Visits Re quested Visits Authorized [id number] Closed 12/19/2020 01/18/2022 1 1 Reason for Visit * Diagnostic Imaging (Routine) - Closed Specialty Diagnoses / Procedures Referred By Mal garland Referred To Contact Diagnoses Acute pain of right knee Procedures XR Knee Right 3 Vw Christ Hu PA Phone: tel: fax: [address] [phone] Referral ID Status Reason Start Date Expiration Date Visits Re quested Visits Authorized [id number] Closed 12/19/2020 01/18/2022 1 1 Encounter Details Date Type Department Care Team (Latest Contact Info) Description 12/19/2020 3:18 PM CDT - 12/19/2020 11:59 PM CDT Hospital Encounter [facility] [place] [facility] 1 DIAG IMG [address] [place] [address] Acute pain of right knee Discharge Disposition: Discharge to home or self care Social History Tobacco Use Types Packs/Day Years Used Date Smoking Tobacco: Never Alcohol Use Standard Drinks/Week Comments Yes 0 (1 standard drink = 0.6 oz pur e alcohol) AUDIT-C Answer Date Recorded Q1: How often do you have a drink containing alc ohol? Monthly or less 12/19/2020 Q2: How many drinks containi ng alcohol do you have on a typical day when you are drinking? 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 Gender Identity Not on file Sexual Orientation Not on file documented as of this encounter Medications at Time of Discharge multivitamin (MULTIPLE VITAMINS DAILY ORAL) Rx: Multi Vitamin Daily albuterol HFA (Proventil HFA) 90 mcg/actuation inhaler Inhale 1 puff every 6 (six) hours as needed (for wheezing) 1 Inhaler 1 01/10/2020 2 ALPRAZolam (XANAX) 0.25 mg tablet 0.25 mg daily as needed 2 fluticasone propionate (Flonase Allergy Relief) 50 mcg/actuation nasal spray Administer 2 sprays into each nostril daily 1 Inhaler 2 11/27/2020 2 hydroCHLOROthiaz janiya (HYDRODIURIL) 25 mg tablet Take 1 tablet (25 mg total) by mouth daily 90 tablet 1 11/27/2020 2 ibuprofen (ADVIL,MOTRIN) 800 mg tablet Take 1 tablet (800 mg total) by mouth every 6 (six) hours as needed (pain) 90 tablet 1 11/27/2020 2 sertraline (ZOLOFT) 25 mg tabletIndication s:Situational anxiety Take 1 tablet (25 mg total) by mouth daily 90 tablet 3 12/19/2020 2 telmisartan (Micardis) 40 mg tablet Take 1 tablet (40 mg total) by mouth daily 90 tablet 1 11/27/2020 2 documented as of this encounter Discharge Disposition Disposition Code Departure Means Destination Discharge to home or self care documented in this encounter Plan of Treatment Not on file documented as of this encounter Procedures Procedure Name Priority Date/Time Associated Diagnosis Comments XR KNEE RIGHT 3 VIEWS Schedule Routine, Read Routine (OP Routine) 12/19/2020 3:34 PM CDT Acute pain of right knee documented in this encounter Results * XR Knee Right 3 Vw (12/19/2020 3:34 PM CDT) Anatomical Region Laterality Modality Lower Extremities, Knee Right Computed Radiography 12/20/2020 8:56 AM CDT Narrative 12/20/2020 8:57 AM CDT EXAM DESCRIPTION: ?XR KNEE RIGHT 3 VIEWS REASON FOR STUDY: ?? Three-week history of right knee pain. ??Pain when kneeling on the floor. TECHNIQUE: ?? 3 radiographic views acquired of the right knee. COMPARISON: ?? Prior exam 08/27/2013 FINDINGS: BONES/JOINTS: ??Normal mineralization. ??No acute fracture or dislocation. ?? Joint spaces are intact. ??No effusion. ??Trivial spurring of the patella. ?? Joint spaces are maintained. SOFT TISSUES: ??Unremarkable. OTHER: ??No other significant finding. IMPRESSION: ?? 1. ??No acute fracture. 2. ??Trivial spurring of the lateral patella. THIS IS AN ELECTRONICALLY VERIFIED FINAL REPORT 12/20/2020 8:57 AM - Electronically signed by Neo Caicedo M.D. MJ: LILLIAN D: ??12/20/2020 8:57 AM T: ??12/20/2020 8:57 AM Report ID: [id number] Reading Location: ??[id number] Procedure Note Neo Caicedo MD - 12/20/2020 EXAM DESCRIPTION: XR KNEE RIGHT 3 VIEWS REASON FOR STUDY: Three-week history of right knee pain. Pain whenkneeling on the floor. TECHNIQUE: 3 radiographic views acquired of the right knee. COMPARISON: Prior exam 08/27/2013 FINDINGS: BONES/JOINTS: Normal mineralization. No acute fracture or dislocation. Joint spaces are intact. No effusion. Trivial spurring of the patella. Joint spaces are maintained. SOFT TISSUES: Unremarkable. OTHER: No other significant finding. IMPRESSION: 1. No acute fracture. 2. Trivial spurring of the lateral patella. THIS IS AN ELECTRONICALLY VERIFIED FINAL REPORT 12/20/2020 8:57 AM - Electronically signed by Neo Caicedo M.D. MJ: LILLIAN Report ID: [id number] Reading Location: [id number] [facility] IMG XR PROCEDURES Final Result documented in this encounter Visit Diagnoses Diagnosis Acute pain of right knee documented in this encounter Care Teams Crisis Mental Health Therapist Relationship Specialty Start Date End Date Christ Hu PA PCP - General 07/20/18 documented as of this encounter
--- OUTSIDE RECORDS SUMMARY | 2024-05-25 02:17 | XMS_ITS | Encounter Summary ---
Author Organization [facility] Medical [facility] Address [address] [place] [address] Care Team Providers Care Library Media Specialist Name Role Phone Christ Hu Primary Care Provider [phone] Encounter Details Date Type Department Care Team ([facility] Contact Info) Description 06/26/2022 Orders Only [facility] [facility] [address] [place] [address] Scanning, Provider Social History Tobacco Use Types Packs/Day Years [...] should administer the PHQ-9) 2 03/05/2023 Comments Unknown Sex and Gender Information Value Date Recorded Sex Assigned at Not on file 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
--- OUTSIDE RECORDS SUMMARY | 2024-05-25 02:17 | XMS_ITS | Encounter Summary ---
Author Organization [facility] Healthcare Address [address] [place] [address] Care Team Providers Care Leadership Development Instructor Name Role Phone Christ Hu Primary Care Provider Reason for Visit * Reason Onset Date Comments Appointment Request 10/14/2023 Encounter Details Date Type Department Care Team (Late st Contact Info) Description 10/14/2023 Telephone [facility] Medical Group Primary Care [facility] [address] [place] [address] Christ Hu PA [address] [place] [address] Appointment Request Social History Tobacco [...] on file 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 * Telephone Encounter - Yvonne Pringle - 10/14/2023 11:07 AM CDT Appointment Request What visit type does the patient need? Visit Type: Preventative What is the reason for the visit? Annual. labs and health assessment for life insurance (form) What is the reason we were unable to schedule the appointment? Current appointment availability didnot meet patient's need. . If applicable, were all members of the patient's PCP care team offered (e.g., nurse practioner(s), physician assistant merchandiser(s)) ? Yes Additional Comments: pt wanting to be seen next week Does message need to be routed? Yes-Action Needed documented in this encounter Plan of Treatment Not on file documented as of this encounter Visit Diagnoses Not on filedocumented in this encounter Care Teams Leadership Development Instructor Relationship Specialty Start Date End Date Christ Hu PA PCP - General 07/20/18 documented as of this encounter
--- OUTSIDE RECORDS SUMMARY | 2024-05-25 02:17 | XMS_ITS | Encounter Summary ---
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 Gender Identity Not on file Sexual Orientation Not on file documented as of this encounter Ordered Prescriptions Prescription Sig Dispense Quantity Refills Last Filled Start Date End Date nitrofurantoin monohydrate (MACROBID) 100 mg capsuleIndications :Urinary Tract/Genitourinar y Infection Take 1 capsule (100 mg total) by mouth 2 (two) times a day 10 capsule 03/14/2023 documented in this encounter Miscellaneous Notes * Telephone Encounter - Laina Coe RN - 03/14/2023 3:56 PM CDT Chief Complaint(s): pressure and burning when urinating and strong odor [facility] [place] worker Uncomplicated UTI Standing Order Guideline - Urination pain female [employer] 1965 Primary Care Provider Christ Hu PA Date and Time of call 03/14/2023 3:59 PM Last office visit: 03/05/23 Onset: 1 day Symptoms include: Patient having pressure and burning when urinating and strong odor, upper back pain PATIENT DOES NOT HAVE: Recurrent UTI Fever, chills, sweats Flank pain History of kidney stones in the past 3 months Indwelling urinary stent or catheter placed in the past 3 months Uncontrolled Diabetes with no A1C on file or last A1C more than 15 months ago Most recent A1C (in the last 15 months) greater than 9.0 Most recent estimated glomerular filtration rate and date of that test result 83 12/06 Lab Results Component Value Date CREATININE 0.80 12/12/2020 Lab Results Component Value Date HGBA1C 5.4 01/26/2016 Allergies as of 03/14/2023 - Reviewed 03/05/2023 Allergen Reaction Noted ??? Sulfa (sulfonamide antibiotics) Rash Prescription transmitted by triage nurse to patient's preferred pharmacy based upon a standing order to treat uncomplicated urinary tract infection. No orders of the defined types were placed in this encounter. Macrobid 1 tab BID for 5 days. Called order into [facility] and pended order to Christ Hu PA [id number] - [place], [place] - [address] [facility] [address] [facility] [id number] PATIENT INSTRUCTIONS: Hydrate to thirst, overly concentrated urine can be irritating, and excessive fluid consumption does not shorten the duration of symptoms. Call back if: Your symptoms (pain, frequency, urgency) do not improve by day 3 on antibiotics. You become worse (develop fever, flank pain, etc.) Encounter forwarded to Christ Hu PA's clinical team as FYI. Reason for Disposition ? ? Age > 50 years Protocols used: Urination Pain - [id number] * Telephone Encounter - oCrin Mcfarlane RN - 03/14/2023 2:34 PM CDT Regarding: pressure and burning when urinating and strong odor ----- Message from Yvonne Pringle sent at 03/14/2023 12:03 PM CDT ----- Symptom Based Call Chief Complaint(s): pressure and burning when urinating and strong odor Duration: yesterday What type of symptom(s) is the patient experiencing? Non-Emergent. Is this a new or reoccurring symptom(s)? new What have you tried to help your symptom(s)? Azo Why was appointment not scheduled? Requesting advice from clinical inspector outside steam distribution. Additional Comments: Patient having pressure and burning when urinating and strong odor. Has tried the Azo and wanting to know if she need to go to or what she should do Does message need to be routed? Yes-Action Needed documented in this encounter Plan of Treatment Not on file documented as of this encounter Visit Diagnoses Not on filedocumented in this encounter Care Teams Senior Process Control Tech Relationship Specialty Start Date End Date Christ Hu PA PCP - General 07/20/18 documented as of this encounter
--- OUTSIDE RECORDS SUMMARY | 2024-05-25 02:17 | XMS_ITS | Encounter Summary ---
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 * Telephone Encounter - Christ Hu PA - 10/02/2021 3:30 PM CDT Needs appointment this week, * Telephone Encounter - Iman Ann LPN - 10/02/2021 3:15 PM CDT Spoke to patient, stated was exposed to Covid on , then had positive Covid test on 09/06/2021, and stated has had a cough since then, was productive, but now has a dry cough, and congestion, was taking Coricidin HGB, then switch to Mucinex, but no relief. documented in this encounter Plan of Treatment Not on file documented as of this encounter Visit Diagnoses Not on filedocumented in this encounter Care Teams Manager Data Warehouse Relationship Specialty Start Date End Date Christ Hu PA PCP - General 07/20/18 documented as of this encounter
--- OUTSIDE RECORDS SUMMARY | 2024-05-25 02:17 | XMS_ITS | Encounter Summary ---
Author Organization [facility] Medical Group Address [address] [place] [address] Care Team Providers Care Power Wood Sawyer Name Role Phone Christ Hu Primary Care Provider [phone] Reason for Visit * Reason Onset Date Comments Medication Request 02/25/2022 Encounter Details Date Type Department Care Team (Late st Contact Info) Description 02/25/2022 Telephone [facility] Primary Care [address] [facility] [address] [place] [address] Christ Hu PA [address] [place] [address] Medication Request Social History Tobacco Use Types Packs/Day [...] on file 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 * Telephone Encounter - Angelina Ware - 02/25/2022 3:17 PM CDT Medication Question/Clarification Medication Name(s): fluconazole (DIFLUCAN) 150 mg tablet What is the question or clarification needed? Pharmacy is calling stating they need clarification on the directions for this medication. Please advise. If needed, Pharmacy(s) medication(s) should be sent to: [facility] on file Caller???s Callback #: [phone] Additional Comments: none Does message need to be routed? Yes-Action Needed documented in this encounter Plan of Treatment Not on file documented as of this encounter Visit Diagnoses Not on filedocumented in this encounter Care Teams Power Wood Sawyer Relationship Specialty Start Date End Date Christ Hu PA PCP - General 07/20/18 documented as of this encounter
--- OUTSIDE RECORDS SUMMARY | 2024-05-25 02:17 | XMS_ITS | Encounter Summary ---
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
--- OUTSIDE RECORDS SUMMARY | 2024-05-25 02:17 | XMS_ITS | Encounter Summary ---
Author Organization [facility] Address [address] [facility] [address] [place] [address] Care Team Providers Care Musical Performer Name Role Phone Christ Hu Primary Care Provider [phone] Reason for Referral * Diagnostic Imaging (Routine) - Closed Specialty Diagnoses / Procedures Referred By Mal garland Referred To Contact Diagnoses Acute pain of right knee Procedures XR Knee Right 3 Vw Christ Hu PA Phone: tel: fax: [address] [phone] Referral ID Status Reason Start Date Expiration Date Visits Re quested Visits Authorized [id number] Closed 12/19/2020 01/18/2022 1 1 * Diagnostic Imaging (Routine) - Closed Specialty Diagnoses / Procedures Referred By Mal garland Referred To Contact Diagnoses Encounter for screening mammogram for malignant neoplasm of breast Procedures SCREENING MAMMOGRAM BILATERAL Christ Hu PA Phone: tel: fax: [address] [phone] Referral ID Status Reason Start Date Expiration Date Visits Re quested Visits Authorized [id number] Closed 12/19/2020 01/18/2022 1 1 Reason for Visit * Reason Comments Preventative Care Encounter Details Date Type Department Care Team (Late st Contact Info) Description 12/19/2020 2:45 PM CDT Office Visit [facility] Primary Care [facility] [address] [phone] Christ Hu PA [address] [place] [address] Routine general medical examination at a health care facility (Primary Dx); Situational anxiety; Essential hypertension; Dysphagia, unspecified type; Encounter for screening mammogram for malignant neoplasm of breast; Need for vaccination; Acute pain of right knee Social History Tobacco Use Types Packs/Day Years [...] on file 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 Gender Identity Not on file Sexual Orientation Not on file documented as of this encounter Last Filed Vital Signs Vital Sign Reading Time Taken Comments Blood Pressure 118/82 12/19/2020 2:58 PM CDT Pulse 93 12/19/2020 2:58 PM CDT Temperature 36 ??C (96.8 ??F) 12/19/2020 2:58 PM CDT Respiratory Rate 16 12/19/2020 2:58 PM CDT Oxygen Saturation 97% 12/19/2020 2:58 PM CDT Inhaled Oxygen Concentration - - Weight 92.5 kg (204 lb) 12/19/2020 2:58 PM CDT Height 152.4 cm (5') 12/19/2020 2:58 PM CDT Body Mass Index 39.84 12/19/2020 2:58 PM CDT documented in this encounter Ordered Prescriptions Prescription Sig Dispense Quantity Refills Last Filled Start Date End Date sertraline (ZOLOFT) 25 mg tabletIndications: Situational anxiety Take 1 tablet (25 mg total) by mouth daily 90 tablet 3 12/19/2020 05/23/2021 sertraline (ZOLOFT) 25 mg tabletIndications: Situational anxiety Take 1 tablet (25 mg total) by mouth daily 90 tablet 3 12/19/2020 12/19/2020 documented in this encounter Progress Notes * Christ Hu, TUAN - 12/19/2020 2:45 PM CDT Images from the original note were not included. Subjective/Objective Patient ID: Shasta Ace is a 55 y.o. female. Chief Complaint Preventative Care Vitals: 12/19/20 1458 BP: 118/82 BP Location: Left arm Patient Position: Sitting Pulse: 93 Resp: 16 Temp: 36 ??C (96.8 ??F) TempSrc: Temporal SpO2: 97% Weight: 92.5 kg (204 lb) Height: 152.4 cm (5') Patient is in for routine follow-up for the following medical conditions labs and medications. Patient is in for annual physical along with routine follow-up for the following medical conditions. Diagnoses and all orders for this visit: Routine general medical examination at a health care facility (Primary) -non-smoker -Exercise:some -colonoscopy: 2 years ago -shingles: we discussed -flu: Decline -Covid 19: UTD -specialist: -mammogram: Ordered -bone density: -pap: MARIA GUADALUPE/BSO Situational anxiety - this is present, getting worse, use to take zoloft but came off it Essential hypertension - taking meds Dysphagia, unspecified type - this is improved NEW 1. Right knee pain: Bent down on carpet and felt like something like entered to knee, but does not see it, concerned a needle got stuck in knee, this happened 3 weeks ago Past Medical History: Diagnosis Date ??? Anxiety [...] Tobacco Use ??? Smoking status: Never Smoker Substance Use Topics ??? Alcohol use: Yes [...] Diagnoses and all orders for this visit: Routine general medical examination at a health care facility (Primary) Assessment & Plan: Healthcare maintenance updated, colonoscopy up-to-date, mammogram ordered. Situational anxiety Assessment & Plan: This is not controlled, I am going to start 25 mg of Zoloft and will follow-up in 6 weeks The pharmacologic and nonpharmacologic treatment of anxiety/depression were discusses with the patient. Included was a discussion of the current treatment regimens and their proposed mechanism of action concerning brain chemistry. Discussed the role of counseling as an adjunct to medications shouldwe agree to pursue this. The patient is non-suicidal, and agrees to inform us of any change in thisstatus follow up in 4-6 weeks- sooner if any problems Orders: - sertraline (ZOLOFT) 25 mg tablet; Take 1 tablet (25 mg total) by mouth daily Essential hypertension Assessment & Plan: This is a stable chronic condition. Monitor blood pressure, call if out of parameters as we discussed. Low sodium and caffeine diet. baby asa as discussed if applicable. Diet, exercise and weight reduction. Labs as ordered. F/U routine Dysphagia, unspecified type Assessment & Plan: This is currently controlled, will continue to follow Encounter for screening mammogram for malignant neoplasm of breast - SCREENING MAMMOGRAM BILATERAL Need for vaccination - Tdap vaccine greater than or equal to 7yo IM Acute pain of right knee - XR Knee Right 3 Vw; Future Orders Placed This Encounter Procedures ??? SCREENING MAMMOGRAM BILATERAL Order Specific Question: Is the patient ? Answer: No Order Specific Question: Clinical question to be answered: Answer: Routine breast cancer screening - test ??? XR Knee Right 3 Vw Standing Status: Future Standing Expiration Date: 12/19/2021 Order Specific Question: Is the patient ? Answer: No Order Specific Question: Where should this order be performed? Answer: [facility] [[id number]] ??? Tdap vaccine greater than or equal to 7yo IM Body mass index is 39.84 kg/m??. BMI Follow-up includes: nutrition counseling and exercise counseling. *This note is dictated using [employer] voice recognition software, variances in spelling and vocabulary are possible and unintentional.* TUAN Sky documented in this encounter Miscellaneous Notes * Assessment & Plan Note - Christ Hu PA - 12/19/2020 3:14 PM CDTAssociated Problem(s): Situational anxiety Images from the original note were not [...] of counseling as an adjunct to medications shouldwe agree to pursue this. The patient is non-suicidal, and agrees to inform us of any change in thisstatus follow up in 4-6 weeks- sooner if any problems * Assessment & Plan Note - Christ Hu PA - 12/19/2020 3:14 PM CDTAssociated Problem(s): Routine general medical examination at a health care facility Healthcare maintenance updated, colonoscopy up-to-date, mammogram ordered. * Assessment & Plan Note - Christ Hu PA - 12/19/2020 3:14 PM CDTAssociated Problem(s): Hypertension This is a stable chronic condition. Monitor blood pressure, call if out of parameters as we discussed. Low sodium and caffeine diet. baby asa as discussed if applicable. Diet, exercise and weight reduction. Labs as ordered. F/U routine * Assessment & Plan Note - Christ Hu PA - 12/19/2020 3:14 PM CDTAssociated Problem(s): Dysphagia This is currently controlled, will continue to follow documented in this encounter Plan of Treatment Scheduled Orders Name Type Priority Associated Diagnoses Orde r Schedule SCREENING MAMMOGRAM BILATERAL Imaging Schedule Routine, Read Routine (OP Routine) Encounter for screening mammogram for malignant neoplasm of breast Ordered: 12/19/2020 documented as of this encounter Results * XR Knee Right [...] 8:57 AM - Electronically signed by Neo SNYDER: LILLIAN D: ??12/20/2020 8:57 AM T: ??12/20/2020 8:57 AM Report ID: [id number] Reading Location: ??[id number] Procedure Note Neo Caicedo MD - 12/20/2020 [...] Neo Caicedo M.D. MJ: LILLIAN Report ID: [id number] Reading Location: [id number] Christ DICKERSON IMG XR PROCEDURES Final Result documented in this encounter Visit Diagnoses Diagnosis Routine general medical examination at a health care facility- Primary Situational anxiety Essential hypertension Unspecified essential hypertension Dysphagia, unspecified type Encounter for screening mammogram for malignant neoplasm of breast Need for vaccination Need for prophylactic vaccination and inoculation against unspecified single disease Acute pain of right knee Acute pain of right knee documented in this encounter Discontinued Medications Medication Sig Discontinue Reason Start Date End Da te emollient combination no.25 (ELETONE) cream Apply liberally to the affected area three times a day as needed 10/02/2018 12/19/2020 sertraline (ZOLOFT) 25 mg tabletIndications:Situa tional anxiety Take 1 tablet (25 mg total) by mouth daily Reorder 12/19/2020 12/19/2020 documented as of this encounter Care Teams Musical Performer Relationship Specialty Start Date End Date Christ Hu PA PCP - General 07/20/18 documented as of this encounter
--- OUTSIDE RECORDS SUMMARY | 2024-05-25 02:18 | XMS_ITS | Encounter Summary ---
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 Historical Provider Final Res ult * SCAN - LABS (12/23/2016 12:00 AM CDT) Narrative 12/23/2016 12:00 AM CDT Ordered by an unspecified provider. us Historical Provider Final Res ult * SCAN - LABS (12/23/2016 12:00 AM CDT) Narrative 12/23/2016 12:00 AM CDT Ordered by an unspecified provider. us Historical Provider Final Res ult documented in this encounter Visit Diagnoses Not on filedocumented in this encounter Care Teams Medical Chief Technician Relationship Specialty Start Date End Date Christ Hu PA PCP - General 07/20/18 documented as of this encounter
--- OUTSIDE RECORDS SUMMARY | 2024-05-25 02:18 | XMS_ITS | Encounter Summary ---
Author Organization 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 Gender Identity Not on file Sexual Orientation Not on file documented as of this encounter Plan of Treatment Not on file documented as of this encounter Procedures Procedure Name Priority Date/Time Associated Diagnosis Comments US BREAST RIGHT COMPLETE Routine 10/13/2014 3:51 PM CDT DIAGNOSTIC MAMMOGRAM BILATERAL W JERMAN Routine 10/13/2014 3:04 PM CDT GENERAL RADIOLOGY REPORT 10/13/2014 12:00 AM CDT GENERAL RADIOLOGY REPORT 10/13/2014 12:00 AM CDT documented in this encounter Results * US Breast Right Complete (10/13/2014 3:51 PM CDT) Anatomical Region Laterality Modality Breast Right Ultrasound 10/13/2014 3:51 PM CDT Impressions 10/13/2014 4:06 PM CDT BIRADS 2: ??BENIGN Electronically signed by: Dr. Tolu Cornell ?? nh/:10/13/2014 16:05:05 ?? Flatwork Presser: Angelina Howard [facility] Reading location: Ultrasound BI-RADS: 2 Benign [EOD] Narrative 10/13/2014 4:06 PM CDT - US BREAST - RIGHT ULTRASOUND OF RIGHT BREAST: 10/13/2014 Please refer to the diagnostic mammography report of the same date. ??Reports are combined. Procedure Note Provider, MD Samira - 10/04/2020 - US BREAST - RIGHT ULTRASOUND OF RIGHT BREAST: 10/13/2014 Please refer to the diagnostic mammography report of the same date.Reports are combined. IMPRESSION: BIRADS 2: BENIGN Electronically signed by: Dr. Tolu Cornell nh/:10/13/2014 16:05:05 Flatwork Presser: Angelina Howard [facility] Reading location: Ultrasound BI-RADS: 2 Benign [EOD] us Asad Bailey MD IMG MAMMO PROCEDURES F inal Result * Diagnostic Mammogram Bilateral W Jerman (10/13/2014 3:04 PM CDT) Anatomical Region Laterality Modality Breast Bilateral Mammography 10/13/2014 3:04 PM CDT Impressions 10/13/2014 4:05 PM CDT BIRADS 2: ??BENIGN No evidence of malignancy in either breast. ??Numerous bilateral benign-appearing cysts. ?? A 1 year screening mammogram is recommended. ??This was discussed with Ji Ace. Electronically signed by: Dr. Tolu Cornell nh/:10/13/2014 16:04:16 ?? Flatwork Presser: Kylie NAQVI)(Francisco), [facility] letter sent: MG & US Done-Normal ?? Reading location: BI-RADS: 2 Benign [EOD] Narrative 10/13/2014 4:05 PM CDT - [facility]AGE BILAT DIAGNOSTIC 3D W/CAD BILATERAL DIGITAL DIAGNOSTIC MAMMOGRAM 3D/2D WITH CAD WITH MEDIOLATERAL OBLIQUE CRANIOCAUDAL: 10/13/2014 The study was acquired using full field digital technology and interpreted from soft copy. ?? Current study was also evaluated with ICAD version 7.2. CLINICAL: 48-year-old woman presents for annual mammography and follow-up after right breast cyst aspiration on 09/27/2013 and left breast cyst aspiration on 02/16/2014 at [facility]. On 09/13/2013, short interval follow-up was recommended of a 1.3 cm cyst at 7 o'clock in the right breast, as well as a 6.1 cm cyst at 3 o'clock in the left breast; however, the left breast cyst at 3 o'clock was aspirated to resolution on 02/16/2014. ??She is currently asymptomatic. ?? COMPARISONS: Comparison is made to exams dated: ??02/16/2014 aspiration, 09/27/2013 aspiration, 09/13/2013 ultrasound, 11/27/2011 mammogram, and 01/28/2013 mammogram - [facility]. ?? BREAST TISSUE: The tissue of both breasts is heterogeneously dense, which may obscure small masses. ?? MAMMOGRAPHIC FINDINGS: There are numerous waxing and waning masses in both breasts, which have not suspiciously changed and are consistent with cysts. ?? No significant masses, calcifications, or other findings are seen in either breast. ?? There has been no suspicious interval change. ULTRASOUND FINDINGS: ??Targeted right breast ultrasound at 7 o'clock 5 cm from the nipple demonstrated a circumscribed anechoic cyst measuring 1.6 x 1.6 x 0.7 cm, which previously measured 3.7 x 3.4 x 2.1 cm. ??This corresponds with one of the numerous mammographic masses. Procedure Note Provider, MD Samira - 10/04/2020 - SAVAGE BILAT DIAGNOSTIC 3D W/CAD BILATERAL DIGITAL DIAGNOSTIC MAMMOGRAM 3D/2D WITH CAD WITH MEDIOLATERALOBLIQUE CRANIOCAUDAL: 10/13/2014 The study was acquired using full field digital technology and interpretedfrom soft copy. Current study was also evaluated with ICAD version 7.2. CLINICAL: 48-year-old woman presents for annual mammography and follow-upafter right breast cyst aspiration on 09/27/2013 and left breast cyst aspirationon 02/16/2014 at [facility]. On 09/13/2013, short interval follow-upwas recommended of a 1.3 cm cyst at 7 o'clock in the right breast, as well asa 6.1 cm cyst at 3 o'clock in the left breast; however, the left breast cyst at3 o'clock was aspirated to resolution on 02/16/2014. She is currently asymptomatic. COMPARISONS: Comparison is made to exams dated: 02/16/2014 aspiration, 09/27/2013 aspiration, 09/13/2013 ultrasound, 11/27/2011 mammogram, and01/28/2013 mammogram - [facility]. BREAST TISSUE: The tissue of both breasts is heterogeneously dense, whichmay obscure small masses. MAMMOGRAPHIC FINDINGS: There are numerous waxing and waning masses in both breasts, which have not suspiciously changed and are consistent withcysts. No significant masses, calcifications, or other findings are seen ineither breast. There has been no suspicious interval change. ULTRASOUND FINDINGS: Targeted right breast ultrasound at 7 o'clock 5 cmfrom the nipple demonstrated a circumscribed anechoic cyst measuring 1.6 x 1.6x 0.7 cm, which previously measured 3.7 x 3.4 x 2.1 cm. This corresponds withone of the numerous mammographic masses. IMPRESSION: BIRADS 2: BENIGN No evidence of malignancy in either breast. Numerous bilateral benign-appearing cysts. A 1 year screening mammogram is recommended. This was discussed with . Electronically signed by: Dr. Tolu Cornell nh/:10/13/2014 16:04:16 Flatwork Presser: Kylie Lama RT(R)(M), [facility] letter sent: MG & US Done-Normal Reading location: BI-RADS: 2 Benign [EOD] us Asad NUGENT MAMMO PROCEDURES F inal Result * GENERAL RADIOLOGY REPORT (10/13/2014 12:00 AM CDT) Anatomical Region Laterality Modality Radiographic Luba ging Narrative 10/13/2014 12:00 AM CDT Ordered by an unspecified provider. us Historical Provider MD NUGENT XR PROCEDURES Final R esult * GENERAL RADIOLOGY REPORT (10/13/2014 12:00 AM CDT) Anatomical Region Laterality Modality Radiographic Luba ging Narrative 10/13/2014 12:00 AM CDT Ordered by an unspecified provider. us Historical Provider MD NUGENT XR PROCEDURES Final R esult documented in this encounter Visit Diagnoses Diagnosis Solitary cyst of breast documented in this encounter
--- OUTSIDE RECORDS SUMMARY | 2024-05-25 02:18 | XMS_ITS | Encounter Summary ---
Author Organization [facility] Address [address] [place] [address] Care Team Providers Care Bakery Demonstrator Name Role Phone Christ Hu Primary Care Provider [phone] Reason for Visit * Reason Comments Neck Pain Has lump on left lei e of neck Encounter Details Date Type Department Care Team (Late st Contact Info) Description 09/30/2018 1:00 PM CDT Office Visit [facility] Primary Care [address] [place] [address] Christ Hu PA [address] [place] [address] Essential hypertension (Primary Dx); Stress; EIC (epidermal inclusion cyst); Rosacea Social History Tobacco Use Types Packs/Day Years Used Date Smoking Tobacco: Never Alcohol Use Standard Drinks/Week Comments Yes 0 (1 standard drink = 0.6 oz pur e alcohol) Comments Unknown Sex and Gender Information Value Date Recorded Sex Assigned at Not on file 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 Gender Identity Not on file Sexual Orientation Not on file documented as of this encounter Last Filed Vital Signs Vital Sign Reading Time Taken Comments Blood Pressure 116/80 09/30/2018 12:56 PM CDT Pulse 90 09/30/2018 12:56 PM CDT Temperature 36.8 ??C (98.3 ??F) 09/30/2018 12:56 PM C DT Respiratory Rate 16 09/30/2018 12:56 PM CDT Oxygen Saturation 94% 09/30/2018 12:56 PM CDT Inhaled Oxygen Concentration - - Weight 93.4 kg (206 lb) 09/30/2018 12:56 PM CDT Height 152.4 cm (5') 09/30/2018 12:56 PM CDT Body Mass Index 40.23 09/30/2018 12:56 PM CDT documented in this encounter Ordered Prescriptions Prescription Sig Dispense Quantity Refills Last Filled Start Date End Date ciprofloxacin (CIPRO) 500 mg tablet Take 1 tablet (500 mg total) by mouth 2 (two) times a day for 10 days 20 tablet 09/30/2018 10/10/2018 sertraline (ZOLOFT) 25 mg tablet Take 1 tablet (25 mg total) by mouth daily 30 tablet 5 09/30/2018 03/18/2019 documented in this encounter Progress Notes * Christ Hu, PA - 09/30/2018 1:00 PM CDT Images from the original note were not included. Subjective/Objective Patient ID: Shasta Ace is a 52 y.o. female. Chief Complaint Neck Pain (Has lump on left side of neck) Vitals: 09/30/18 1256 BP: 116/80 BP Location: Left arm Patient Position: Sitting Pulse: 90 Resp: 16 Temp: 36.8 ??C (98.3 ??F) TempSrc: Oral SpO2: 94% Weight: 93.4 kg (206 lb) Height: 152.4 cm (5') Patient under a lot of stress, not depressed, she feels it is all work go, go, go. She is breaking out, seen derm for rosacea, needs refill on medications, small sore on left side neck, tender, started Friday, no D\C Review of Systems Constitutional: Negative for activity change. HENT: Negative for congestion. Respiratory: Negative for shortness of breath. Cardiovascular: Negative for chest pain. Gastrointestinal: Negative for abdominal pain. Physical Exam Constitutional: She appears well-developed and well-nourished. No distress. HENT: Head: Normocephalic. Right Ear: External ear normal. Left Ear: External ear normal. Nose: Nose normal. Mouth/Throat: Oropharynx is clear and moist. Eyes: Pupils are equal, round, and reactive to light. EOM are normal. Neck: Neck supple. Cardiovascular: Normal rate, regular rhythm and normal heart sounds. Pulmonary/Chest: Breath sounds normal. Abdominal: Soft. Bowel sounds are normal. Musculoskeletal: Normal range of motion. She exhibits no edema. Skin: Skin is warm and dry. Face with a mild scattered erythematous rash consistent with rosacea, left side of the neck with anearly E ICU this is slightly red and tender and is not fluctuant. Psychiatric: She has a normal mood and affect. Assessment/Plan Diagnoses and all orders for this visit: Essential hypertension (Primary) This is a stable chronic condition, continue current medications, work on diet exercise and weight reduction, avoid sodium and caffeine, follow-up routine Stress Patient has increased stress at work mild anxiety and dysthymia we discussed options to include mental health consult she would like to try low-dose Zoloft I agreed to do so will follow-up in 6 weeks The pharmacologic [...] in 4-6 weeks- sooner if any problems EIC (epidermal inclusion cyst) Medications as ordered hot moist compresses we discussed signs and symptoms that would warrant IND patient verbalized understand Rosacea Patient has a prescription for Elodone, we cannot find isn't in the computer she is going to show it to her pharmacy this and let us know if it is a refillable medication No orders of the defined types were placed in this encounter. Body mass index is 40.23 kg/m??. BMI Follow-up includes: nutrition counseling. *This note is dictated using [employer] voice recognition software, variances in spelling and vocabulary are possible and unintentional.* TUAN Sky documented in this encounter Plan of Treatment Not on file documented as of this encounter Visit Diagnoses Diagnosis Essential hypertension- Primary Unspecified essential hypertension Stress Other psychological or physical stress, not elsewhere classified EIC (epidermal inclusion cyst) Sebaceous cyst Rosacea documented in this encounter Historical Medications * This list may reflect changes made after this encounter. multivitamin (MULTIPLE VITAMINS DAILY ORAL) Rx: Multi Vitamin Daily ibuprofen (MOTRIN ORAL) 800 mg 3 (three) times a day 01/10/2020 albuterol HFA (PROVENTIL HFA) 90 mcg/actuation inhaler every 6 (six) hours as needed 04/22/2019 ALPRAZolam (XANAX) 0.25 mg tablet 0.25 mg daily as needed 05/23/2021 fluticasone propionate (FLONASE ALLERGY RELIEF) 50 mcg/actuation nasal spray daily 04/22/2019 hydroCHLOROthiazi de (HYDRODIURIL) 25 mg tablet 25 mg daily 04/22/2019 telmisartan (MICARDIS) 40 mg tablet 40 mg daily 04/22/2019 added in this encounter Care Teams Bakery Demonstrator Relationship Specialty Start Date End Date Christ Hu PA PCP - General 07/20/18 documented as of this encounter
--- OUTSIDE RECORDS SUMMARY | 2024-05-25 02:18 | XMS_ITS | Encounter Summary ---
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 us Historical Provider Final Res ult documented in this encounter Visit Diagnoses Not on filedocumented in this encounter Care Teams Thread Spooler Relationship Specialty Start Date End Date Christ Hu PA PCP - General 07/20/18 documented as of this encounter
--- OUTSIDE RECORDS SUMMARY | 2024-05-25 02:18 | XMS_ITS | Encounter Summary ---
Author Organization [facility] Address [address] [place] [address] Care Team Providers Care Filter Tender Name Role Phone Unavailable Primary Care Provider Unavailabl e Encounter Details Date Type Department Care Team (Latest Contact Info) Description 08/26/2017 7:42 AM CDT Hospital Encounter [facility] Christ Hu, PA [address] [place] [address] Low back pain with left-sided sciatica; Low back pain with right-sided sciatica; Pain in thoracic spine Social History Tobacco Use Types Packs/Day Years Used Date Smoking Tobacco: Never Assessed Comments Unknown Sex and Gender Information Value Date Recorded Sex Assigned at Not on file 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 THIS IS AN ELECTRONICALLY VERIFIED FINAL REPORT 08/26/2017 8:36 AM - Electronically signed by Antonio MARQUEZ: ALMA D: ??08/26/2017 8:36 AM T: ??08/26/2017 8:36 AM Report ID: [id number] Reading Location: ??[id number] [EOD] Narrative 08/26/2017 8:39 AM CDT EXAM DESCRIPTION: ??Lumbar Spine 2 or 3 View COMPLETED DATE/TIME: ??08/26/2017 8:03 am REASON FOR STUDY: ??PAIN x 6 MONTHS, NO INJURY. COMPARISON: ??None available. TECHNIQUE: ??Three radiographic views acquired of the lumbar spine. FINDINGS: ALIGNMENT: Normal. SEGMENTATION: Normal. ??No transitional anatomy. VERTEBRAE: Well-maintained height. ??No fracture or worrisome bone lesion. Facet joints unremarkable. DISCS: Well-maintained disc heights. OTHER: No other significant finding. Procedure Note Provider, MD Samira - 10/04/2020 EXAM DESCRIPTION: Lumbar Spine 2 or 3 View COMPLETED DATE/TIME: 08/26/2017 8:03 am REASON FOR STUDY: PAIN x 6 MONTHS, NO INJURY. COMPARISON: None available. TECHNIQUE: Three radiographic views acquired of the lumbar spine. FINDINGS: ALIGNMENT: Normal. SEGMENTATION: Normal. No transitional anatomy. VERTEBRAE: Well-maintained height. No fracture or worrisome bone lesion. Facet joints unremarkable. DISCS: Well-maintained disc heights. OTHER: No other significant finding. IMPRESSION: Normal lumbar spine. THIS IS AN ELECTRONICALLY VERIFIED FINAL REPORT 08/26/2017 8:36 AM - Electronically signed by Antonio MARQUEZ: ALMA Report ID: [id number] Reading Location: [id number] [EOD] Christ DICKERSON IMG XR PROCEDURES Final Result * XR Spine Thoracic 3 Vw (08/26/2017 7:44 AM CDT) Anatomical Region Laterality Modality Spine N/A Radiographic Luba ging 08/26/2017 7:44 AM CDT Impressions 08/26/2017 10:39 AM CDT ??Minor thoracic spondylosis. THIS IS AN ELECTRONICALLY VERIFIED FINAL REPORT 08/26/2017 10:35 AM - Electronically signed by Antonio Justice M.D. JA: ALMA D: ??08/26/2017 8:35 AM T: ??08/26/2017 8:49 AM Report ID: [id number] Reading Location: ??[id number] [EOD] Narrative 08/26/2017 10:39 AM CDT EXAM DESCRIPTION: ??Thoracic Spine w/Swim 3 Vw Min COMPLETED DATE/TIME: ??08/26/2017 8:02 am REASON FOR STUDY: ??Pain x 6 months, no injury, no previous surgery, patient states lower right side T-spine pain. COMPARISON: ??None available. TECHNIQUE: ??Three radiographic views acquired of the thoracic spine. FINDINGS: ALIGNMENT: Anatomic. VERTEBRAE: Well-maintained height. ??No fracture or worrisome bone lesion. Facet joints unremarkable. DISCS: Minor multilevel loss of interbody disc space with endplate sclerosis and marginal osteophytosis favoring upper and midthoracic spine. HARDWARE: None in the spine. SOFT TISSUES: No significant abnormality in the included lungs. OTHER: No other significant finding. Procedure Note Provider, MD Samira - 10/04/2020 EXAM DESCRIPTION: Thoracic Spine w/Swim 3 Vw Min COMPLETED DATE/TIME: 08/26/2017 8:02 am REASON FOR STUDY: Pain x 6 months, no injury, no previous surgery,patient states lower right side T-spine pain. COMPARISON: None available. TECHNIQUE: Three radiographic views acquired of the thoracic spine. FINDINGS: ALIGNMENT: Anatomic. VERTEBRAE: Well-maintained height. No fracture or worrisome bone lesion. Facet joints unremarkable. DISCS: Minor multilevel loss of interbody disc space with endplatesclerosis and marginal osteophytosis favoring upper and midthoracic spine. HARDWARE: None in the spine. SOFT TISSUES: No significant abnormality in the included lungs. OTHER: No other significant finding. IMPRESSION: Minor thoracic spondylosis. THIS IS AN ELECTRONICALLY VERIFIED FINAL REPORT 08/26/2017 10:35 AM - Electronically signed by Antonio Justice M.D. JA: ALMA Report ID: [id number] Reading Location: [id number] [EOD] Christ DICKERSON IMG XR PROCEDURES Final Result documented in this encounter Visit Diagnoses Diagnosis Low back pain with left-sided sciatica Low back pain with right-sided sciatica Pain in thoracic spine documented in this encounter
--- OUTSIDE RECORDS SUMMARY | 2024-05-25 02:18 | XMS_ITS | Encounter Summary ---
Author Organization [facility] Healthcare Address [address] [place] [address] Care Team Providers Care Archivist Nonprofit Foundation Name Role Phone Unavailable Primary Care Provider Unavailabl e Encounter Details Date Type Department Care Team (Latest Contact Info) Description 01/14/2018 1:18 PM CDT Hospital Encounter [facility] Stanley Hay MD [address] [facility] [address] [address] Pain in right elbow Social History Tobacco Use Types Packs/Day Years Used Date Smoking Tobacco: Never Assessed Comments Unknown Sex and Gender Information Value Date Recorded Sex Assigned at Not on file 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 ??Normal right elbow. THIS IS AN ELECTRONICALLY VERIFIED FINAL REPORT 01/14/2018 2:14 PM - Electronically signed by Neo SNYDER D: ??01/14/2018 2:14 PM T: Report ID: [id number] Reading Location: ??[id number] [EOD] Narrative 01/14/2018 2:17 PM CDT EXAM DESCRIPTION: ??Elbow RT 3 View Min REASON FOR STUDY: ??GENERAL ELBOW PAIN AND WEAKNESS FOR 1 MONTH, NO INJURY TECHNIQUE: ??AP, lateral, and oblique radiographic views acquired of the right elbow. COMPARISON: ??08/15/2017 FINDINGS: BONES/JOINTS: No acute fracture or dislocation. No suspicious bone lesion. ?? Joint spaces are maintained with no erosions or significant osteophytes. SOFT TISSUES: Unremarkable. OTHER: No other significant finding. Procedure Note Provider, MD Samira - 10/04/2020 EXAM DESCRIPTION: Elbow RT 3 View Min REASON FOR STUDY: GENERAL ELBOW PAIN AND WEAKNESS FOR 1 MONTH, NOINJURY TECHNIQUE: AP, lateral, and oblique radiographic views acquired of theright elbow. COMPARISON: 08/15/2017 FINDINGS: BONES/JOINTS: No acute fracture or dislocation. No suspicious bone lesion. Joint spaces are maintained with no erosions or significant osteophytes. SOFT TISSUES: Unremarkable. OTHER: No other significant finding. IMPRESSION: No acute osseous abnormality. Normal right elbow. THIS IS AN ELECTRONICALLY VERIFIED FINAL REPORT 01/14/2018 2:14 PM - Electronically signed by Neo SNYDER T: Report ID: [id number] Reading Location: [id number] [EOD] Stanley Hay MD IMG XR PROCEDURES Final Re sult documented in this encounter Visit Diagnoses Diagnosis Pain in right elbow Pain in joint, upper arm documented in this encounter
--- OUTSIDE RECORDS SUMMARY | 2024-05-25 02:18 | XMS_ITS | Encounter Summary ---
Author Organization [facility] Address [address] [place] [address] Care Team Providers Care Plant Tour Guide Name Role Phone Unavailable Primary Care Provider Unavailabl e Encounter Details Date Type Department Care Team (Late st Contact Info) Description 09/26/2017 1:30 PM CDT - 10/16/2017 1:30 PM CDT Hospital Encounter [facility] Christ Hu, PA [address] [place] [address] Dorsalgia Social History Tobacco Use Types Packs/Day Years Used Date Smoking Tobacco: Never Assessed Comments Unknown Sex and Gender Information Value Date Recorded Sex Assigned at Not on file 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
--- OUTSIDE RECORDS SUMMARY | 2024-05-25 02:18 | XMS_ITS | Encounter Summary ---
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 us Historical Provider Final Res ult documented in this encounter Visit Diagnoses Not on filedocumented in this encounter Care Teams Lion Trainer Relationship Specialty Start Date End Date Christ Hu PA PCP - General 07/20/18 documented as of this encounter
--- OUTSIDE RECORDS SUMMARY | 2024-05-25 02:18 | XMS_ITS | Encounter Summary ---
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
--- OUTSIDE RECORDS SUMMARY | 2024-05-25 02:18 | XMS_ITS | Encounter Summary ---
Author Organization [facility] Healthcare Address [address] [place] [address] Care Team Providers Care Spool Maker Name Role Phone Unavailable Primary Care Provider Unavailabl e Encounter Details Date Type Department Care Team (Late st Contact Info) Description 08/24/2015 2:21 PM CDT Hospital Encounter [facility] Radu Dash MD [facility] [address] [id number] Breast lump Social History Tobacco Use Types Packs/Day Years Used Date Smoking Tobacco: Never Assessed Comments Unknown Sex and Gender Information Value Date Recorded Sex Assigned at Not on file 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 Gender Identity Not on file Sexual Orientation Not on file documented as of this encounter Plan of Treatment Not on file documented as of this encounter Procedures Procedure Name Priority Date/Time Associated Diagnosis Comments US BREAST LEFT COMPLETE Routine 08/24/2015 3:00 PM CDT DIAGNOSTIC MAMMOGRAM LEFT W JERMAN Routine 08/24/2015 2:21 PM CDT GENERAL RADIOLOGY REPORT 08/24/2015 12:00 AM CDT GENERAL RADIOLOGY REPORT 08/24/2015 12:00 AM CDT documented in this encounter Results * US Breast Left Complete (08/24/2015 3:00 PM CDT) Anatomical Region Laterality Modality Breast Left Ultrasound 08/24/2015 3:00 PM CDT Impressions 08/24/2015 3:28 PM CDT BIRADS 2:BENIGN Electronically signed by: Donny Ayala ?? md/:08/24/2015 15:27:18 ?? Supervisor Game Farm: Angelina Howard [facility] [place] Reading location: Ultrasound BI-RADS: 2 Benign [EOD] Narrative 08/24/2015 3:28 PM CDT - US ULTRASOUND OF LEFT BREAST: 08/24/2015 Please refer to the diagnostic mammogram report from the same date. ??The reports have been combined. Procedure Note Provider, MD Samira - 10/04/2020 - US ULTRASOUND OF LEFT BREAST: 08/24/2015 Please refer to the diagnostic mammogram report from the same date. The reports have been combined. IMPRESSION: BIRADS 2:BENIGN Electronically signed by: Donny Ayala md/:08/24/2015 15:27:18 Supervisor Game Farm: Angelina Howard [facility] [place] Reading location: Ultrasound BI-RADS: 2 Benign [EOD] us Radu Dash MD IMG MAMMO PROCEDURES Final Result * Diagnostic Mammogram Left W Jerman (08/24/2015 2:21 PM CDT) Anatomical Region Laterality Modality Breast Left Mammography 08/24/2015 2:21 PM CDT Impressions 08/24/2015 3:27 PM CDT BI-RAD 2 ??BENIGN 1. ??Left breast palpable areas of concern at 10 o'clock and 12 o'clock correspond with benign simple cysts, the larger measuring 2.9 cm at 12 o'clock. 2. ??Other left breast waxing/waning masses with partially circumscribed/obscured margins demonstrate no suspicious interval change, most consistent with benign entities (probably cysts as well). Routine annual screening mammography is recommended. ??The patient has been notified of these results and recommendations. Donny Ayala md/:08/24/2015 15:26:43 ?? Supervisor Game Farm: Kindra Akins)(Francisco), [facility] [place] letter sent: MG & US Done-Normal ?? Reading location: BI-RADS: 2 Benign [EOD] Narrative 08/24/2015 3:27 PM CDT - MG UNILATERAL LEFT DIGITAL DIAGNOSTIC MAMMOGRAM 3D/2D WITH CAD WITH MEDIOLATERAL OBLIQUE CRANIOCAUDAL: 08/24/2015 The study was acquired using full field digital technology and interpreted from soft copy. ?? Current study was also evaluated with R2 CAD. 2D digital mammographic views, as well as 3D digital tomosynthesis were performed in the CC and MLO projections. CLINICAL: 49-year-old female with known bilateral fibrocystic breast disease presents for evaluation of 2 palpable left breast lumps, 1 of which was noticed by the patient and other of which was palpated by her physician on recent physical exam. ?? COMPARISONS: Comparison is made to exams dated: ??06/30/2015 ultrasound, 06/30/2015 mammogram, 10/13/2014 ultrasound, 10/13/2014 mammogram - [facility] [place], 02/16/2014 aspiration, and 09/27/2013 aspiration - Monitor. ?? FINDINGS: Left diagnostic mammogram: ??The left breast is composed of scattered fibroglandular tissues. Re-identified are multiple waxing and waning, round and oval isodense masses with partially circumscribed, partially obscured margins scattered throughout the left breast. ??These are most consistent with benign entities, probably cysts. A BB marker has been placed on the left breast palpable area of concern at 10-11 o'clock. ??Several of the aforementioned masses are seen underlying the BB marker, the largest which measures 3.8 x 3.3 cm (MLO frame 56). ?? No spiculated mass or suspicious microcalcifications are seen within the left breast. ??There has been no suspicious interval mammographic change involving the left breast. Left breast ultrasound: ??Targeted sonographic evaluation of the left breast palpable area of concern (noticed by the patient) at 10 o'clock, 7 cm from the nipple demonstrates an anechoic simple cyst measuring 2.3 x 2.3 x 1.1 cm. Focused sonographic evaluation of the other left breast palpable area (noticed by her physician) at 12 o'clock, 6 cm from the nipple demonstrates another anechoic simple cyst measuring 2.9 x 2.8 x 1.8 cm. Procedure Note Provider, MD Samira - 10/04/2020 - MG UNILATERAL LEFT DIGITAL DIAGNOSTIC MAMMOGRAM 3D/2D WITH CAD WITHMEDIOLATERAL OBLIQUE CRANIOCAUDAL: 08/24/2015 The study was acquired using full field digital technology and interpretedfrom soft copy. Current study was also evaluated with R2 CAD. 2D digital mammographic views, as well as 3D digital tomosynthesis were performed in the CC and MLO projections. CLINICAL: 49-year-old female with known bilateral fibrocystic breastdisease presents for evaluation of 2 palpable left breast lumps, 1 of which wasnoticed by the patient and other of which was palpated by her physician on recent physical exam. COMPARISONS: Comparison is made to exams dated: 06/30/2015 ultrasound, 06/30/2015 mammogram, 10/13/2014 ultrasound, 10/13/2014 mammogram - [facility] [place], 02/16/2014 aspiration, and 09/27/2013 aspiration - Monitor. FINDINGS: Left diagnostic mammogram: The left breast is composed of scattered fibroglandular tissues. Re-identified are multiple waxing and waning, round and oval isodensemasses with partially circumscribed, partially obscured margins scatteredthroughout the left breast. These are most consistent with benign entities, probably cysts. A BB marker has been placed on the left breast palpable area of concern at 10-11 o'clock. Several of the aforementioned masses are seen underlyingthe BB marker, the largest which measures 3.8 x 3.3 cm (MLO frame 56). No spiculated mass or suspicious microcalcifications are seen within theleft breast. There has been no suspicious interval mammographic changeinvolving the left breast. Left breast ultrasound: Targeted sonographic evaluation of the leftbreast palpable area of concern (noticed by the patient) at 10 o'clock, 7 cm fromthe nipple demonstrates an anechoic simple cyst measuring 2.3 x 2.3 x 1.1cm. Focused sonographic evaluation of the other left breast palpable area(noticed by her physician) at 12 o'clock, 6 cm from the nipple demonstrates another anechoic simple cyst measuring 2.9 x 2.8 x 1.8 cm. IMPRESSION: BI-RAD 2 BENIGN 1. Left breast palpable areas of concern at 10 o'clock and 12 o'clock correspond with benign simple cysts, the larger measuring 2.9 cm at 12o'clock. 2. Other left breast waxing/waning masses with partially circumscribed/obscured margins demonstrate no suspicious interval change,most consistent with benign entities (probably cysts as well). Routine annual screening mammography is recommended. The patient has been notified of these results and recommendations. Donny Ayala md/:08/24/2015 15:26:43 Supervisor Game Farm: Kindra Akins)Maryam), [facility] [place] letter sent: MG & US Done-Normal Reading location: BI-RADS: 2 Benign [EOD] us Radu Dash MD IMG MAMMO PROCEDURES Final Result * GENERAL RADIOLOGY REPORT (08/24/2015 12:00 AM CDT) Anatomical Region Laterality Modality Radiographic Luba ging Narrative 08/24/2015 12:00 AM CDT Ordered by an unspecified provider. Historical Provider IMG XR PROCEDURES Final R esult * GENERAL RADIOLOGY REPORT (08/24/2015 12:00 AM CDT) Anatomical Region Laterality Modality Radiographic Luba ging Narrative 08/24/2015 12:00 AM CDT Ordered by an unspecified provider. Historical Provider IMG XR PROCEDURES Final R esult documented in this encounter Visit Diagnoses Diagnosis Breast lump Lump or mass in breast documented in this encounter
--- OUTSIDE RECORDS SUMMARY | 2024-05-25 02:18 | XMS_ITS | Encounter Summary ---
Author Organization [facility] Healthcare Address [address] [place] [address] Care Team Providers Care Dietary Clerk Name Role Phone Unavailable Primary Care Provider Unavailabl e Encounter Details Date Type Department Care Team (Latest Contact Info) Description 03/23/2018 1:38 PM MYSQL DEVELOPER Hospital Encounter [facility] [place] [address] [place] [address] Anemia; Essential (primary) hypertension; Osteoarthritis; Other specified anxiety disorders; Other fatigue Social History Tobacco Use Types Packs/Day Years Used Date Smoking Tobacco: Never Assessed Comments Unknown Sex and Gender Information Value Date Recorded Sex Assigned at Not on file Legal Sex Female 3:19 AM MYSQL DEVELOPER Gender Identity Not on file Sexual Orientation Not on file documented as of this encounter Plan of Treatment Not on file documented as of this encounter Procedures Procedure Name Priority Date/Time Associated Diagnosis Comments THYROID FUNCTION CASCADE Routine 03/23/2018 2:02 PM MYSQL DEVELOPER IRON PROFILE W/ IBC Routine 03/23/2018 2 :02 PM MYSQL DEVELOPER VITAMIN D 25 HYDROXY Routine 03/23/2018 2:02 PM MYSQL DEVELOPER RHEUMATOID FACTOR Routine 03/23/2018 2:0 2 PM MYSQL DEVELOPER T3, FREE Routine 03/23/2018 2:02 PM MYSQL DEVELOPER T4, FREE Routine 03/23/2018 2:02 PM MYSQL DEVELOPER COMPREHENSIVE METABOLIC PANEL Routine 03/23/2018 2:02 PM MYSQL DEVELOPER CBC WITH AUTO DIFFERENTIAL Routine 03/23/2018 2:01 PM MYSQL DEVELOPER documented in this encounter Results * (ABNORMAL) Iron profile w/ IBC (03/23/2018 2:02 PM MYSQL DEVELOPER) Pathologist [facility] Iron 48 37 - 145 ug/dL 03/24/2018 2:04 PM MYSQL DEVELOPER [facility] HISTORICAL RESULTS TIBC 344 228 - 428 ug/dL 03/24/2018 2:04 PM MYSQL DEVELOPER [facility] HISTORICAL RESULTS Transferrin % Sat 14(L) 20 - 50 % 03/24/2018 2:04 PM MYSQL DEVELOPER [facility] HISTORICAL RESULTS 03/23/2018 2:02 PM MYSQL DEVELOPER 03/23/2018 3:55 PM MYSQL DEVELOPER Christ DICKERSON LAB BLOOD ORDERABLES Final Resu lt Performing Organization Address [facility]/ZIP Co de Phone Number [facility] HISTORICAL RESULTS * T3, free (03/23/2018 2:02 PM MYSQL DEVELOPER) Free T3 4.81 3.10 - 6.80 pmol/L 03/23/2018 7:33 PM MYSQL DEVELOPER [facility] HISTORICAL RESULTS 03/23/2018 2:02 PM MYSQL DEVELOPER 03/23/2018 3:55 PM MYSQL DEVELOPER Christ DICKERSON LAB BLOOD ORDERABLES Final Resu lt [facility] HISTORICAL RESULTS * T4, free (03/23/2018 2:02 PM MYSQL DEVELOPER) Free T4 1.68 0.93 - 1.70 ng/dL 03/23/2018 4:28 PM MYSQL DEVELOPER [facility] HISTORICAL RESULTS 03/23/2018 2:02 PM MYSQL DEVELOPER 03/23/2018 3:55 PM MYSQL DEVELOPER us Christ DICKERSON LAB BLOOD ORDERABLES Final Resu lt Performing Organization Address [facility]/ZIP Co de Phone Number [facility] HISTORICAL RESULTS * TSH reflex to free T4 (03/23/2018 2:02 PM MYSQL DEVELOPER) Pathologist [facility] TSH W REFLEX TO FT4 2.42 0.27 - 4.20 uIU/mL 03/23/2018 4:28 PM MYSQL DEVELOPER [facility] HISTORICAL RESULTS 03/23/2018 2:02 PM MYSQL DEVELOPER 03/23/2018 3:55 PM MYSQL DEVELOPER Christ DICKERSON LAB BLOOD ORDERABLES Final Resu lt Performing Organization Address [facility] [place] Phone Number [facility] HISTORICAL RESULTS * (ABNORMAL) Vitamin D 25 hydroxy (03/23/2018 2:02 PM MYSQL DEVELOPER) Pathologist [facility] 25-OH Vitamin D Total 18(L) 30 - 80 ng/mL 03/23/2018 7:24 PM MYSQL DEVELOPER [facility] HISTORICAL RESULTS 03/23/2018 2:02 PM MYSQL DEVELOPER 03/23/2018 3:55 PM MYSQL DEVELOPER Christ DICKERSON LAB BLOOD ORDERABLES Final Resu lt Performing Organization Address [facility] Phone Number [facility] HISTORICAL RESULTS * Rheumatoid factor (03/23/2018 2:02 PM MYSQL DEVELOPER) Pathologist [facility] Rheumatoid Factor < 10.0 0.0 - 13.9 IU/mL 03/23/2018 7:09 PM MYSQL DEVELOPER [facility] HISTORICAL RESULTS 03/23/2018 2:02 PM MYSQL DEVELOPER 03/23/2018 3:55 PM MYSQL DEVELOPER Christ DICKERSON LAB BLOOD ORDERABLES Final Resu lt Performing Organization Address [facility] Co de Phone Number [facility] HISTORICAL RESULTS * (ABNORMAL) Comprehensive metabolic panel (03/23/2018 2:02 PM MYSQL DEVELOPER) [facility] Sodium 140 135 - 145 mmol/L 03/23/2018 4:28 PM [facility] HISTORICAL RESULTS Potassium 4.2 3.3 - 5.1 mmol/L 03/23/2018 4:28 PM [facility] HISTORICAL RESULTS Comment: HEMOLYZED: Hemolysis interferes with the above test. ?? RESULTS ARE IN NORMAL RANGE - OUTPATIENT LAB - NO REDRAW Chloride 101 96 - 108 mmol/L 03/23/2018 4:28 PM [facility] HISTORICAL RESULTS Carbon Dioxide 24 22 - 32 mmol/L 03/23/2018 4:28 PM [facility] [employer] HISTORICAL RESULTS Anion Gap 15 7 - 16 03/23/2018 4:28 PM [facility] HISTORICAL RESULTS Glucose 84 70 - 100 mg/dL 03/23/2018 4:28 PM [facility] HISTORICAL RESULTS BUN 7 6 - 20 mg/dL 03/23/2018 4:28 PM [facility] HISTORICAL RESULTS Creatinine 0.6 0.5 - 1.1 mg/dL 03/23/2018 4:28 PM [facility] HISTORICAL RESULTS Comment: NOTE: Estimated GFR (Cockroft-Gault) will NOT be calculated unless patient Height and Weight were entered. Also, Kidney Disease Stage (GFR) and Estimated GFR (Cockroft-Gault) will NOT be calculated if Creatinine result is <0.2. Kidney Disease Stage > 90 mL/MIN 03/23/2018 4:28 PM [facility] HISTORICAL RESULTS Comment: NOTE; ??The GFR is an estimated value using the creatinine, sex, age, and race of the patient. THE Estimated Kidney Disease GFR is validated for AGES 18-70 YEARS STAGE ?mL/Min ?DESCRIPTION ??1 ?90 mL/min or more ?Normal or elevated GFR ??2 ? 60-89 mL/min ?Mildly decreased GFR ??3 ? 30-59 mL/min ?Moderately decreased GFR ??4 ? 15-29 mL/min ?Severely decreased GFR ??5 ? <15 mL/min ? Kidney failure or on dialysis @ Calcium 9.6 8.6 - 10.0 mg/dL 03/23/2018 4:28 PM [facility] HISTORICAL RESULTS Total Protein 8.0 6.4 - 8.3 g/dL 03/23/2018 4:28 PM MYSQL DEVELOPER [facility] HISTORICAL RESULTS Albumin 4.2 3.5 - 5.2 g/dL Globulin 3.8(H) 2.3 - 3.5 gm/dL 03/23/2018 4:[address] [facility] [employer] HISTORICAL RESULTS Albumin/Globulin Ratio 1.1 1.1 - 1.8 03/23/2018 4:28 PM [facility] Total Bilirubin 0.2 0.0 - 1.2 mg/dL 03/23/2018 4:28 PM [facility] AST 21 0 - 32 U/L 03/23/2018 4:29 PM [facility] Comment: HEMOLYZED: Hemolysis interferes with the above test. ?? RESULTS WITHING NORMAL RANGE - OUTPATIENT SHERMAN - NO REDRAW ALT 13 0 - 33 U/L 03/23/2018 4:29 PM [facility] HISTORICAL RESULTS Comment:HEMOLYZED: Hemolysis interferes with the above test. Alkaline Phosphatase 90 35 - 104 U/L 03/23/2018 4:28 PM [facility] 03/23/2018 2:02 PM MYSQL DEVELOPER 03/23/2018 3:55 PM MYSQL DEVELOPER us Christ DICKERSON LAB BLOOD ORDERABLES Final Resu lt [facility] HISTORICAL RESULTS * (ABNORMAL) CBC with auto differential (03/23/2018 2:01 PM MYSQL DEVELOPER) WBC 6.5 3.8 - 9.9 X10 3/ul 03/23/2018 3:58 PM MYSQL DEVELOPER [facility] HISTORICAL RESULTS RBC 4.90 3.90 - 5.20 x10 6/ul Hemoglobin 12.7 11.9 - 15.5 g/dL Hct 39.8 35.6 - 45.5 % MCV 81.2(L) 81.3 - 96.4 fl MCH 25.9(L) 27.1 - 33.3 pg MCHC 31.9(L) 32.3 - 35.7 g/dl RDW 15.9(H) 11.1 - 14.9 % Plt Count 272 150 - 400 x10 3/ul MPV 10.9 9.1 - 12.3 fl Neut % 45.5 % Immature Gran % 0.2 % 8 3:58 PM [facility] HISTORICAL RESULTS Lymph % 43.2 % Haakon % 4.8 % Eos % 5.4 % Baso % 0.9 % Absolute Neuts (auto) 3.0 1.7 - 6.5 x10 3/ul Immature Gran # 0.0 0.0 - 0.1 x10 3/ul Absolute Lymphs (auto) 2.8 0.8 - 3.3 x10 3/ul Absolute Monos (auto) 0.3 0.2 - 0.8 x10 3/ul 03/23/2018 3:58 PM MYSQL DEVELOPER [facility] HISTORICAL RESULTS Absolute Eos (auto) 0.4 0.0 - 0.5 x10 3/ul 03/23/2018 3:58 PM MYSQL DEVELOPER [facility] HISTORICAL RESULTS Absolute Basos (auto) 0.1 0.0 - 0.1 x10 3/ul 03/23/2018 3:58 PM MYSQL DEVELOPER [facility] HISTORICAL RESULTS Nucleat RBC Rel Count 0.0 #/100WBC 03/23/2018 3:58 PM MYSQL DEVELOPER [facility] HISTORICAL RESULTS Absolute Nucleated RBC 0.00 0.00 - 0.01 x10 3/ul 03/23/2018 3:58 PM MYSQL DEVELOPER [facility] HISTORICAL RESULTS Absolute Neutrophils 3000 200 - 8000 /ul 03/23/2018 2:01 PM MYSQL DEVELOPER 03/23/2018 3:55 PM MYSQL DEVELOPER Christ DICKERSON LAB BLOOD ORDERABLES Final Resu lt [facility] HISTORICAL RESULTS documented in this encounter Visit Diagnoses Diagnosis Anemia Unspecified anemia Essential (primary) hypertension Unspecified essential hypertension Osteoarthritis Osteoarthrosis, unspecified whether generalized or localized, unspecified site Other specified anxiety disorders Other fatigue documented in this encounter
--- OUTSIDE RECORDS SUMMARY | 2024-05-25 02:18 | XMS_ITS | Encounter Summary ---
Author Organization [facility] Healthcare Address [address] [place] [address] Care Team Providers Care Stave Hewer Name Role Phone Christ Hu Primary Care Provider [phone] Encounter Details Date Type Department Care Team (Late st Contact Info) Description 12/12/2020 12:05 PM CDT Lab [facility] [address] [address] Essential hypertension; Routine general medical examination at a health care facility Social History Tobacco Use Types Packs/Day Years Used Date Smoking Tobacco: Never Alcohol Use Standard Drinks/Week Comments Yes 0 (1 standard drink = 0.6 oz pur e alcohol) PHQ-2 Answer Date Recorded PHQ-2 Score 0 03/18/2019 Comments Unknown Sex and Gender Information Value Date Recorded Sex Assigned at Not on file Legal Sex Female 3:19 AM STATIC BALANCER Gender Identity Not on file Sexual Orientation Not on file documented as of this encounter Plan of Treatment Not on file documented as of this encounter Procedures Procedure Name Priority Date/Time Associated Diagnosis Comments EGFR Routine 12/12/2020 12:24 PM CDT Essential hypertension Routine general medical examination at a health care facility TSH Routine 12/12/2020 12:24 PM CDT Routine general medical examination at a health care facility LIPID PANEL Routine 12/12/2020 12:24 PM CDT Routine general medical examination at a health care facility COMPREHENSIVE METABOLIC PANEL Routine 12/12/2020 12:24 PM CDT Essential hypertension Routine general medical examination at a [facility] facility documented in this encounter Results * eGFR (12/12/2020 12:24 PM CDT) eGFR 83 mL/min/1.7 3 m2 ANÍBAL SUMMERS Comment: Interpretive Data Reference Interval Normal ?>/= 90 mL/min/1.73m2 Mildly decreased* ? 60 - 89 mL/min/1.73m2 Mildly to moderately decreased ?45 - 59 mL/min/1.73m2 Moderately to severely decreased ??30 - 44 mL/min/1.73m2 Severely decreased ?15 - 29 mL/min/1.73m2 Kidney Failure ?< 15 ??mL/min/1.73m2 *Relative to young adult level Estimated glomerular filtration rate is determined by the CKD-EPI equation recommended by the National Kidney Foundation (KDIGO 2012 Clinical Practice Guideline for the Evaluation and Management of Chronic Kidney Disease. Kidney Intnl Suppl May 2012;3:1). The CKD-EPI equation should not be used for patients with unstable renal function and has not been validated in children and those over 70. Current interpretive data was last reviewed 2020 Testing performed by: [facility], [address] [place] [address]., [id number] Blood specimen (specimen) 12/12/2020 12:24 PM CDT 12/12/2020 6:41 PM CDT us Christ DICKERSON LAB BLOOD ORDERABLES Final Resu lt ANÍBAL [address] [facility] Department [place] [address] * TSH (12/12/2020 12:24 PM CDT) Thyroid Stimulating Hormone 1.74 0.30 - 4.20 mcIUnit/mL ANÍBAL Comment:Testing performed by : [facility], [address] [place] [address]., [id number] Blood specimen (specimen) 12/12/2020 12:24 PM CDT 12/12/2020 6:41 PM CDT Christ DICKERSON LAB BLOOD ORDERABLES Final Resu lt ANÍBAL [address] [facility] Department of Laboratories [place], [place] [id number] * Lipid panel (12/12/2020 12:24 PM CDT) Pathologist [facility] Cholesterol 189 30 - 199 mg/dL ANÍBAL SUMMERS Comment: Interpretive Data Ages < or = 19 years ??Acceptable: ? <170 mg/dL ??Borderline high: ??170-199 mg/dL ??High: ? >or= 200 mg/dL Ages > or = 20 years ??Desirable: ?<200 mg/dL ??Borderline high: ??200-239 mg/dL ??High: ? >or= 240 mg/dL Literature References: 1. Expert Panel on Integrated Guidelines for Cardiovascular Health and Risk Reduction in Children and Adolescents. Pediatrics 2011;128:S213 2. NCEP Expert Panel. Circulation 2004;110:227 Current Interpretive Data was last revised on 2018. Testing performed by: [facility], [address] [place] [address]., [address] Triglycerides 129 <=149 mg/dL ANÍBAL SUMMERS Comment: Interpretive Data Ages < or = 9 years ??Acceptable: ? <75 mg/dL ??Borderline high: ??75-99 mg/dL ??High: ? >or= 100 mg/dL Ages 10 to 20 years ??Acceptable: ? <90 mg/dL ??Borderline high: ??90-129 mg/dL ??High: ? >or= 130 mg/dL Ages > or = 20 years ??Desirable: ?<150 mg/dL ??Borderline high: ??150-199 mg/dL ??High: ? 200-499 mg/dL ?Very high: ?? >or= 499 mg/dL Literature References: 1. Expert Panel on Integrated Guidelines for Cardiovascular Health and Risk Reduction in Children and Adolescents. Pediatrics 2011;128:S213 2. NCEP Expert Panel. Circulation 2004;110:227 Current Interpretive Data was last revised on 2018. Testing performed by: [address] [address] HDL 42 >=40 mg/dL ANÍBAL Comment: Interpretive Data Ages < or = 19 years ??Acceptable: ? >45 mg/dL ??Borderline low: ?? 40-45 mg/dL ??Low: ? <40 mg/dL Ages > or = 20 years ??Desirable: ?>or= 60 mg/dL ??Low: ? <40 mg/dL Literature References: 1. Expert Panel on Integrated Guidelines for Cardiovascular Health and Risk Reduction in Children and Adolescents. Pediatrics 2011;128:S213 2. NCEP Expert Panel. Circulation 2004;110:227 Current Interpretive Data was last revised on 2018. Testing performed by: [address] [address] LDL, calculated 121 <=129 mg/dL [facility] Comment: Interpretive Data Ages < or = 19 years ??Acceptable: ? <110 mg/dL ??Borderline high: ??110-129 mg/dL ??High: ?>or= 130 mg/dL Ages > or = 20 years ??Optimal: ? <100 mg/dL ??Near optimal: ?100-129 mg/dL ??Borderline high: ?? 130-159 mg/dL ??High: ?>160 mg/dL Literature References: 1. Expert Panel on Integrated Guidelines for Cardiovascular Health and Risk Reduction in Children and Adolescents. Pediatrics 2011;128:S213 2. NCEP Expert Panel. Circulation 2004;110:227 Current Interpretive Data was last revised on 2018. Testing performed by: [address] [address] Non-HDL Cholesterol 147 mg/dL ANÍBAL SUMMERS Comment: Interpretive Data Ages < or = 19 years ??Acceptable: ?<120 mg/dL ??Borderline high: ??120-144 mg/dL ??High: ?>145 mg/dL Ages > or = 20 years ??When triglycerides are >200 mg/dL, Non-HDL cholesterol is a secondary target of ? therapy with treatment goals that are 30 mg/dL greater than the LDL cholesterol target. ? Literature References: 1. Expert Panel on Integrated Guidelines for Cardiovascular Health and Risk Reduction in Children and Adolescents. Pediatrics 2011;128:S213 2. NCEP Expert Panel. Circulation 2004;110:227 Current Interpretive Data was last revised on 2018. Testing performed by: [address] [address] Chol/HDL ratio 4 ANÍBAL SUMMERS Comment:Testing performed by : [address] [address] Blood specimen (specimen) 12/12/2020 12:24 PM CDT 12/12/2020 6:41 PM CDT us Christ DICKERSON LAB BLOOD ORDERABLES Final Resu lt ANÍBAL [address] [facility] Department [place] [address] * (ABNORMAL) Comprehensive metabolic panel (12/12/2020 12:24 PM CDT) Pathologist [facility] Sodium 141 135 - 145 mmol/L ANÍBAL SUMMERS Comment:Testing performed by : [address] [address] Potassium, pl 4.3 3.3 - 4.9 mmol/L ANÍBAL Comment:Testing performed by : [address] [address] Chloride 104 97 - 110 mmol/L ANÍBAL Comment:Testing performed by : [address], [place]., [address] CO2 26 22 - 32 mmol/L ANÍBAL Comment:Testing performed by : [address] [address] Anion gap 11 2 - 15 mmol/L ANÍBAL Comment:Testing performed by : [address], [place]., [address] BUN 9 8 - 25 mg/dL [facility] Comment:Testing performed by : [address] [address] Creatinine 0.80 0.60 - 1.10 mg/dL [facility] Comment:Testing performed by : [address] [address] Glucose 91 70 - 199 mg/dL [facility] Comment: Interpretive Data Fasting glucose >/= 126 mg/dl is diagnostic for diabetes. ?? Fasting is defined as no caloric intake for at least 8 hours. Fasting glucose between 100 mg/dl to 125 mg/dl is diagnostic of prediabetes. In a patient with classic symptoms of hyperglycemia or hyperglycemic crisis, a random glucose >/= 200 mg/dl is diagnostic for diabetes. In the absence of unequivocal hyperglycemia, results should be confirmed by repeat testing. The classification and Diagnosis of Diabetes Diabetes Care 2017;40 (Suppl. 1):S11. Current interpretive data was last revised 2017. Testing performed by: [address] [address] Calcium 9.7 8.5 - 10.3 mg/dL [facility] Comment:Testing performed by : [address] [address] Bilirubin, total 0.3 0.1 - 1.2 mg/dL [facility] Comment:Testing performed by : [address] [address] Protein, pl 7.5 6.5 - 8.5 g/dL ANÍBAL Comment:Testing performed by : [address], [place]., [address] Albumin 4.2 3.5 - 5.0 g/dL ANÍBAL SUMMERS Comment:Testing performed by : [address] [address] Alk phos 78 40 - 130 Units/L ANÍBAL SUMMERS Comment:Testing performed by : [address] [address] ALT <5(L) 7 - 45 Units/L ANÍBAL Comment:Testing performed by : [facility], [address] [place] [address], [place]., [address] AST 13 10 - 45 Units/L ANÍBAL Comment:Testing performed by : [address] [address] Blood specimen (specimen) 12/12/2020 12:24 PM CDT 12/12/2020 6:41 PM CDT us Christ DICKERSON LAB BLOOD ORDERABLES Final Resu lt ANÍBAL [address] [facility] Department of Laboratories [place], [place] [id number] documented in this encounter Visit Diagnoses Diagnosis Essential hypertension Unspecified essential hypertension Routine general medical examination at a health care facility documented in this encounter Care Teams Stave Hewer Relationship Specialty Start Date End Date Christ Hu PA PCP - General 07/20/18 documented as of this encounter
--- OUTSIDE RECORDS SUMMARY | 2024-05-25 02:18 | XMS_ITS | Encounter Summary ---
Author Organization 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 us Historical Provider [facility] ROXANNE GORE Final Result documented in this encounter Visit Diagnoses Not on filedocumented in this encounter Care Teams E Commerce Manager Relationship Specialty Start Date End Date Christ Hu PA PCP - General 07/20/18 documented as of this encounter
--- OUTSIDE RECORDS SUMMARY | 2024-05-25 02:18 | XMS_ITS | Encounter Summary ---
Author Organization [facility] Healthcare Address [address] [place] [address] Care Team Providers Care Education Rn Name Role Phone Unavailable Primary Care Provider Unavailabl e Encounter Details Date Type Department Care Team (Latest Contact Info) Description 10/19/2014 3:39 PM CDT Hospital Encounter 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 PYLORI ANTIBODY, IGG Routine 10/19/2014 3:47 PM CDT documented in this encounter Results * H. pylori antibody, IgG (10/19/2014 3:47 PM CDT) H. pylori IgG NEGATIVE NEGATIVE 10/19/2014 3:47 PM CDT 10/19/2014 3:54 PM CDT Christ DICKERSON LAB BLOOD ORDERABLES Final Resu lt [facility] HISTORICAL RESULTS documented in this encounter Visit Diagnoses Diagnosis Dyspepsia and other specified disorders of function of stomach documented in this encounter
--- OUTSIDE RECORDS SUMMARY | 2024-05-25 02:18 | XMS_ITS | Encounter Summary ---
Author Organization [facility] Healthcare Address [address] [place] [address] Care Team Providers Care Stakes Player Name Role Phone Unavailable Primary Care Provider Unavailabl e Encounter Details Date Type Department Care Team (Latest Contact Info) Description 10/27/2014 8:38 PM CDT - 10/28/2014 5:20 AM CDT Hospital Encounter [facility] OP Trev Riojas MD [address] [facility] [address] [address] Other dyspnea and respiratory abnormality; Hypersomnia Social History Tobacco Use Types Packs/Day Years Used Date Smoking Tobacco: Never Assessed Comments Unknown Sex and Gender Information Value Date Recorded Sex Assigned at Not on file Legal Sex Female 3:19 AM TEST LEAD APPLICATION TESTING Gender Identity Not on file Sexual Orientation Not on file documented as of this encounter Last Filed Vital Signs Vital Sign Reading Time Taken Comments Blood Pressure - - Pulse - - Temperature - - Respiratory Rate - - Oxygen Saturation 100% 10/27/2014 11:00 PM CDT Inhaled Oxygen Concentration - - Weight - - Height - - Body Mass Index - - documented in this encounter Plan of Treatment Not on file documented as of this encounter Procedures Procedure Name Priority Date/Time Associated Diagnosis Comments SLEEP LAB/STUDY - RESULT 11/03/2014 12:00 AM CDT documented in this encounter Results * SLEEP LAB/STUDY - RESULT (11/03/2014 12:00 AM CDT) Narrative 11/03/2014 12:00 AM CDT Ordered by an unspecified provider. us Historical Provider MD Final Res ult documented in this encounter Visit Diagnoses Diagnosis Other dyspnea and respiratory abnormality Hypersomnia Hypersomnia, unspecified documented in this encounter
--- OUTSIDE RECORDS SUMMARY | 2024-05-25 02:18 | XMS_ITS | Encounter Summary ---
Author Organization 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
--- OUTSIDE RECORDS SUMMARY | 2024-05-25 02:18 | XMS_ITS | Encounter Summary ---
Author Organization [facility] Healthcare Address [address] [place] [address] Care Team Providers Care Ornamental Plasterer Helper Name Role Phone Unavailable Primary Care Provider Unavailabl e Encounter Details Date Type Department Care Team (Late st Contact Info) Description 06/30/2017 1:57 PM CARDIOTHORACIC PHYSIOTHERAPIST Hospital Encounter [facility] Jose Rodriguez MD [address] [facility] [address] [place] [address] [place] [address] Acute bronchitis Social History Tobacco Use Types Packs/Day Years Used Date Smoking Tobacco: Never Assessed Comments Unknown Sex and Gender Information Value Date Recorded Sex Assigned at Not on file Legal Sex Female 3:19 AM CARDIOTHORACIC PHYSIOTHERAPIST Gender Identity Not on file Sexual Orientation Not on file documented as of this encounter Plan of Treatment Not on file documented as of this encounter Procedures Procedure Name Priority Date/Time Associated Diagnosis Comments XR CHEST PA LATERAL 2 VIEWS Routine 06/30/2017 1:59 PM CARDIOTHORACIC PHYSIOTHERAPIST documented in this encounter Results * XR Chest Pa Lateral 2 Views (06/30/2017 1:59 PM CARDIOTHORACIC PHYSIOTHERAPIST) Anatomical Region Laterality Modality Body, Chest N/A Radiographic Luba ging 06/30/2017 1:59 PM CARDIOTHORACIC PHYSIOTHERAPIST Impressions 06/30/2017 3:13 PM CARDIOTHORACIC PHYSIOTHERAPIST ??Negative chest THIS IS AN ELECTRONICALLY VERIFIED REPORT 06/30/2017 3:10 PM: ??Juan Antonio Martinez M.D. ?? Juan Antonio Martinez M.D. DA:yun 03:10 PM 03:10 PM ELISA [EOD] Narrative 06/30/2017 3:13 PM CARDIOTHORACIC PHYSIOTHERAPIST EXAMINATION: ??Chest HISTORY: ??Bronchitis. ??Influenza. ??Symptoms for 5 days. COMPARISON: ??10/09/12 TECHNIQUE: ??PA and lateral view FINDINGS: ??The heart is normal in size. ??Lung bowman are expanded and clear. ?? There are no pulmonary infiltrates. ??No fluid. ??No mediastinal abnormalities. Procedure Note Provider, MD Samira - 10/04/2020 EXAMINATION: Chest HISTORY: Bronchitis. Influenza. Symptoms for 5 days. COMPARISON: 10/09/12 TECHNIQUE: PA and lateral view FINDINGS: The heart is normal in size. Lung bowman are expanded andclear. There are no pulmonary infiltrates. No fluid. No mediastinalabnormalities. IMPRESSION: Negative chest THIS IS AN ELECTRONICALLY VERIFIED REPORT 06/30/2017 3:10 PM: Juan Antonio Martinez M.D. Juan Antonio Martinez M.D. DA:yun 03:10 PM 03:10 PM ELISA [EOD] Jose Law MD IMG XR PROCEDURES Final Result documented in this encounter Visit Diagnoses Diagnosis Acute bronchitis documented in this encounter
--- OUTSIDE RECORDS SUMMARY | 2024-05-25 02:18 | XMS_ITS | Encounter Summary ---
Author Organization [facility] Healthcare Address [address] [place] [address] Care Team Providers Care Marketing Secretary Name Role Phone Unavailable Primary Care Provider Unavailabl e Encounter Details Date Type Department Care Team (Latest Contact Info) Description 01/26/2016 10:53 AM CDT Hospital Encounter [facility] OP Christ Hu, PA [address] [place] [address] Dizziness and giddiness; Urgency of urination Social History Tobacco Use Types Packs/Day Years Used Date Smoking Tobacco: Never Assessed Comments Unknown Sex and Gender Information Value Date Recorded Sex Assigned at Not on file Legal Sex Female 3:19 AM GROUP WORKER Gender Identity Not on file Sexual Orientation Not on file documented as of this encounter Plan of Treatment Not on file documented as of this encounter Procedures Procedure Name Priority Date/Time Associated Diagnosis Comments MICROBIOLOGY SPECIMEN REPORT (CONVERTED) Routine 01/26/2016 1:41 PM CDT HEMOGLOBIN A1C Routine 01/26/2016 1:41 PM CDT documented in this encounter Results * Microbiology Specimen Report (Converted) (01/26/2016 1:41 PM CDT) 01/26/2016 1:41 PM CDT 01/26/2016 1:41 PM CDT [facility] HISTORICAL RESULTS - 01/26/2016 1:41 PM CDT Microbiology Specimen Report (Converted) SPECIMEN [id number] ?? COLLECTED: 2016-01-26 13:41:00 [id number] ?? REQ#: [id number] REQUESTING DR: Christ Hu ??PA-C ?? SOURCE: URINE ?? SP DESC: CLEAN CATC --- PROCEDURE --- ?--- RESULT --- ?? CULTURE URINE ??(Final) ??- ??Performed at [facility] ?* NO GROWTH DAY 2 <1,000 CFU/ML - [facility] ? [address] [place] [address] ? [place] [address] ? Juan Antonio Arzate MD Procedure Note 08/08/2018 Microbiology Specimen Report (Converted) SPECIMEN [id number] COLLECTED: 2016-01-26 13:41:00 [id number] REQ#:[id number] REQUESTING DR: Christ Hu PA-C SOURCE: URINE SP DESC: CLEAN CATC --- PROCEDURE --- --- RESULT --- CULTURE URINE (Final) - Performed at [facility] * NO GROWTH DAY 2 <1,000 CFU/[place] [address] Juan Antonio Arzate MD us Christ DICKERSON LAB BLOOD ORDERABLES Final Resu lt Performing Organization Address [facility] de Phone Number [facility] HISTORICAL RESULTS * Hemoglobin A1c (01/26/2016 1:41 PM CDT) Hemoglobin A1c % 5.4 4.8 - 5.9 % 01/26/2016 5:51 PM CDT [facility] HISTORICAL RESULTS Comment: [place] [employer] recommends that the goal of therapy should be an A1C hemoglobin of <7%. Reevaluate the treatment regimen in patients with an A1C >8%. 01/26/2016 1:41 PM CDT 01/26/2016 1:46 PM CDT us Christ DICKERSON LAB BLOOD ORDERABLES Final Resu lt Performing Organization Address [facility] de Phone Number [facility] HISTORICAL RESULTS documented in this encounter Visit Diagnoses Diagnosis Dizziness and giddiness Urgency of urination documented in this encounter
--- OUTSIDE RECORDS SUMMARY | 2024-05-25 02:18 | XMS_ITS | Encounter Summary ---
Author Organization [facility] Healthcare Address [address] [place] [address] Care Team Providers Care Brilliandeer Looper Name Role Phone Unavailable Primary Care Provider Unavailabl e Encounter Details Date Type Department Care Team (Latest Contact Info) Description 07/17/2017 12:12 PM FAMILY DAY CARER Hospital Encounter [facility] Yashira Mathews PA [facility] [address] Essential (primary) hypertension; Cough Social History Tobacco Use Types Packs/Day Years Used Date Smoking Tobacco: Never Assessed Comments Unknown Sex and Gender Information Value Date Recorded Sex Assigned at Not on file Legal Sex Female 3:19 AM FAMILY DAY CARER Gender Identity Not on file Sexual Orientation Not on file documented as of this encounter Plan of Treatment Not on file documented as of this encounter Procedures Procedure Name Priority Date/Time Associated Diagnosis Comments CBC WITH AUTO DIFFERENTIAL Routine 07/17/2017 1:56 PM FAMILY DAY CARER VITAMIN D 25 HYDROXY Routine 07/17/2017 1:56 PM FAMILY DAY CARER LIPID PANEL Routine 07/17/2017 1:56 PM FAMILY DAY CARER COMPREHENSIVE METABOLIC PANEL Routine 07/17/2017 1:56 PM FAMILY DAY CARER XR CHEST PA LATERAL 2 VIEWS Routine 07/17/2017 12:14 PM FAMILY DAY CARER documented in this encounter Results * (ABNORMAL) CBC with auto differential (07/17/2017 1:56 PM [facility]) WBC 7.0 3.5 - 10.5 x10 3/ul RBC 4.87(H) 3.76 - 4.80 x10 6/ul Hemoglobin 12.4 11.0 - 15.0 g/dL Hct 39.0 33.0 - 43.0 % MCV 80.1 80.0 - 97.0 fl MCH 25.5(L) 27.0 - 31.2 pg MCHC 31.8 31.8 - 35.4 g/dl RDW 15.5(H) 11.6 - 14.8 % Plt Count 326 150 - 450 X10 3/ul MPV 9.5 7.4 - 10.4 fl Neut % 51.1 37.0 - 85.0 % Immature Gran % 0.1 0.0 - 3.0 % Lymph % 36.6 5.0 - 45.0 % [place] % 5.3 3.0 - 15.0 % Eos % 6.0 0.0 - 7.0 % Baso % 0.9 0.0 - 2.0 % Absolute Neuts (auto) 3.6 1.7 - 8.7 x10 3/ul 07/17/2017 2:24 PM FAMILY DAY CARER [facility] HISTORICAL RESULTS Immature Gran # 0.0 0.0 - 0.3 x10 3/ul 07/17/2017 2:24 PM FAMILY DAY CARER [facility] HISTORICAL RESULTS Absolute Lymphs (auto) 2.6 0.2 - 4.6 x10 3/ul 07/17/2017 2:24 PM FAMILY DAY CARER [facility] HISTORICAL RESULTS Absolute Monos (auto) 0.4 0.1 - 1.5 x10 3/ul 07/17/2017 2:24 PM FAMILY DAY CARER [facility] HISTORICAL RESULTS Absolute Eos (auto) 0.4 0.0 - 0.7 x10 3/ul 07/17/2017 2:24 PM FAMILY DAY CARER [facility] HISTORICAL RESULTS Absolute Basos (auto) 0.1 0.0 - 0.2 x10 3/ul 07/17/2017 2:24 PM FAMILY DAY CARER [facility] HISTORICAL RESULTS Nucleat RBC Rel Count 0.0 0 - 3 #/100WBC 07/17/2017 2:24 PM FAMILY DAY CARER [facility] HISTORICAL RESULTS Absolute Nucleated RBC 0.00 x10 3/ul Absolute Neutrophils 3600 200 - 8000 /ul 07/17/2017 1:56 PM FAMILY DAY CARER 07/17/2017 2:01 PM FAMILY DAY CARER us Yashira DICKERSON LAB BLOOD ORDERABLES Greta l Result [facility] HISTORICAL RESULTS * (ABNORMAL) Vitamin D 25 hydroxy (07/17/2017 1:56 PM FAMILY DAY CARER) 25-OH Vitamin D Total 13(L) 30 - 80 ng/mL 07/17/2017 7:32 PM FAMILY DAY CARER [facility] HISTORICAL RESULTS 07/17/2017 1:56 PM FAMILY DAY CARER 07/17/2017 2:01 PM FAMILY DAY CARER Yashira DICKERSON LAB BLOOD ORDERABLES Greta l Result Performing Organization Address [facility]/State/ZIP Co de Phone Number [facility] HISTORICAL RESULTS * Lipid panel (07/17/2017 1:56 PM FAMILY DAY CARER) Triglycerides 108 0 - 199 mg/dL Comment:12 hr pc highly charmaine mmended for Triglyceride Cholesterol 179 0 - 199 mg/dL Comment: Borderline: ??200-239 High Risk: ?? >239 HDL Cholesterol 60 mg/dL 8 2:44 PM [facility] HISTORICAL RESULTS Comment: Reference Ranges: ? Males: >=40 mg/dL ? Females: >=50 mg/dL LDL Cholesterol, Calc 97 0 - 130 mg/dL Comment:High Risk > 159 mg/d L Cholesterol/HDL Ratio 3.0 Comment: Cholesterol / HDL Ratio 3.5:1 or less is desirable. Cholesterol / HDL Ratio greater than 5:1 is considered higher risk for developing heart disease. 07/17/2017 1:56 PM FAMILY DAY CARER 07/17/2017 2:01 PM FAMILY DAY CARER Yashira DICKERSON LAB BLOOD ORDERABLES Greta kymberly Result [facility] HISTORICAL RESULTS * (ABNORMAL) Comprehensive metabolic panel (07/17/2017 1:56 PM FAMILY DAY CARER) Pathologist [facility] Sodium 141 135 - 145 mmol/L Potassium 3.2(L) 3.3 - 5.1 mmol/L Chloride 101 96 - 108 mmol/L Carbon Dioxide 25 22 - 32 mmol/L Anion Gap 15 7 - 16 Glucose 89 70 - 100 mg/dL 07/17/2017 2:44 PM [employer] [facility] [employer] [facility] HISTOR[facility] RES[facility] BUN 7 6 - 20 mg/dL 07/17/2017 2:44 PM [facility]ULTS Creatinine 0.6 0.5 - 1.1 mg/dL 07/17/2017 2:44 PM [employer] [facility] HISTORICAL RESULTS Comment: NOTE: Estimated GFR (Cockroft-Gault) will NOT be calculated unless patient Height and Weight were entered. Also, Kidney Disease Stage (GFR) and Estimated GFR (Cockroft-Gault) will NOT be calculated if Creatinine result is <0.2. Kidney Disease Stage > 90 mL/MIN 07/17/2017 2:44 PM [employer] [facility] [employer] [facility] HISTORICAL RESULTS Comment: NOTE; ??The GFR is [...] Kidney failure or on dialysis @ Calcium 9.2 8.6 - 10.0 mg/dL 07/17/2017 2:44 PM [employer] [facility] [employer] HISTORICAL RESULTS Total Protein 7.9 6.4 - 8.3 g/dL 07/17/2017 2:44 PM [employer] [facility] HISTORICAL RESULTS Albumin 4.3 3.5 - 5.2 g/dL 07/17/2017 2:44 PM [employer] [facility] [employer] [facility] HISTORICAL RESULTS Globulin 3.6(H) 2.3 - 3.5 gm/dL 07/17/2017 2:44 PM FAMILY DAY CARER [facility] HISTORICAL RESULTS Albumin/Globulin Ratio 1.2 1.1 - 1.8 07/17/2017 2:44 PM FAMILY DAY CARER [facility] HISTORICAL RESULTS Total Bilirubin 0.3 0.0 - 1.2 mg/dL 07/17/2017 2:44 PM FAMILY DAY CARER [facility] HISTORICAL RESULTS AST 10 0 - 32 U/L 07/17/2017 2:44 PM FAMILY DAY CARER [facility] HISTORICAL RESULTS ALT 9 0 - 33 U/L 07/17/2017 2:44 PM FAMILY DAY CARER [facility] HISTORICAL RESULTS Alkaline Phosphatase 82 35 - 104 U/L 07/17/2017 1:56 PM FAMILY DAY CARER 07/17/2017 2:01 PM FAMILY DAY CARER Yashira Bennett PA LAB BLOOD ORDERABLES Greta l Result [facility] HISTORICAL RESULTS * XR Chest Pa Lateral 2 Views (07/17/2017 12:14 PM FAMILY DAY CARER) Anatomical Region Laterality Modality Body, Chest N/A Radiographic Luba ging 07/17/2017 12:1 4 PM FAMILY DAY CARER Impressions 07/17/2017 3:55 PM FAMILY DAY CARER ??No acute cardiopulmonary abnormality. THIS IS AN ELECTRONICALLY VERIFIED FINAL REPORT 07/17/2017 3:52 PM - Electronically signed by Santy Busby M.D. RH: RH D: ??07/17/2017 3:52 PM T: ??07/17/2017 3:52 PM Report ID: [id number] Reading Location: ??[id number] [EOD] Narrative 07/17/2017 3:55 PM FAMILY DAY CARER EXAM DESCRIPTION: ??Chest 2 Views COMPLETED DATE/TIME: ??07/17/2017 12:25 pm REASON FOR STUDY: ??SYMPTOMS FOR 3 WEEKS. Pt states was here on 06/30/17, chest congestion/tightness in left upper chest is worse now. still has cough. COMPARISON: ??Prior study dated 06/30/2017 TECHNIQUE: ??Frontal and lateral radiographic views of the chest acquired. FINDINGS: LUNGS AND PLEURA: No focal consolidation or pneumothorax. No pleural effusion. MEDIASTINUM: Normal mediastinal and hilar contour. HEART: Cardiac silhouette size normal. BONES: No acute findings. OTHER: No other significant finding. Procedure Note Provider, MD Saimra - 10/04/2020 EXAM DESCRIPTION: Chest 2 Views COMPLETED DATE/TIME: 07/17/2017 12:25 pm REASON FOR STUDY: SYMPTOMS FOR 3 WEEKS. Pt states was here on 06/30/17,chest congestion/tightness in left upper chest is worse now. still has cough. COMPARISON: Prior study dated 06/30/2017 TECHNIQUE: Frontal and lateral radiographic views of the chestacquired. FINDINGS: LUNGS AND PLEURA: No focal consolidation or pneumothorax. No pleuraleffusion. MEDIASTINUM: Normal mediastinal and hilar contour. HEART: Cardiac silhouette size normal. BONES: No acute findings. OTHER: No other significant finding. IMPRESSION: No acute cardiopulmonary abnormality. THIS IS AN ELECTRONICALLY VERIFIED FINAL REPORT 07/17/2017 3:52 PM - Electronically signed by Santy Busby M.D. RH: DANIELITO Report ID: [id number] Reading Location: [id number] [EOD] Yashira DICKERSON IMG XR PROCEDURES Final R esult documented in this encounter Visit Diagnoses Diagnosis Essential (primary) hypertension Unspecified essential hypertension Cough documented in this encounter
--- OUTSIDE RECORDS SUMMARY | 2024-05-25 02:18 | XMS_ITS | Encounter Summary ---
Author Organization [facility] Healthcare Address [address] [place] [address] Care Team Providers Care Hedge Fund Principal Name Role Phone Unavailable Primary Care Provider Unavailabl e Encounter Details Date Type Department Care Team (Late st Contact Info) Description 06/30/2015 8:51 AM [facility] Hospital Encounter [facility] OP Asad Bailey MD [address] [address] Breast lump Social History Tobacco Use Types Packs/Day Years Used Date Smoking Tobacco: Never Assessed Comments Unknown Sex and Gender Information Value Date Recorded Sex Assigned at Not on file Legal Sex Female 3:19 AM [facility] Gender Identity Not on file Sexual Orientation Not on file documented as of this encounter Plan of Treatment Not on file documented as of this encounter Procedures Procedure Name Priority Date/Time Associated Diagnosis Comments US BREAST RIGHT COMPLETE Routine 06/30/2015 9:00 AM [facility] DIAGNOSTIC MAMMOGRAM RIGHT W JERMAN Routine 06/30/2015 8:53 AM [facility] GENERAL RADIOLOGY REPORT 06/30/2015 12:00 AM [facility] GENERAL RADIOLOGY REPORT 06/30/2015 12:00 AM [facility] documented in this encounter Results * US Breast Right Complete (06/30/2015 9:00 AM [facility]) Anatomical Region Laterality Modality Breast Right Ultrasound 06/30/2015 9:00 AM [facility] Impressions 06/30/2015 9:42 AM [facility] OVERALL STUDY BIRADS: 2 BENIGN No evidence of malignancy in the right breast. ??Benign cyst at the site of palpable concern at 9 o'clock. ??Multiple other benign-appearing masses in the right breast have not significantly changed and are most consistent with cysts. This was discussed with Ms. Ace. Return to annual mammogram screening schedule is recommended in October 2015. Electronically signed by: Dr. Tolu Cornell nh/:06/30/2015 09:41:50 ?? Senior Biostatistician/Group Leader: Shanti Brooke RT (R)(M), [facility] letter sent: Normal Exam ?? Reading location: OVERALL STUDY BIRADS: 2 Benign [EOD] Narrative 06/30/2015 9:42 AM [facility] - [facility] DIAGNOSTIC 3D W/CAD - US BREAST - RIGHT UNILATERAL RIGHT DIGITAL DIAGNOSTIC MAMMOGRAM 3D/2D WITH CAD AND TARGETED RIGHT ULTRASOUND WITH MEDIOLATERAL OBLIQUE CRANIOCAUDAL: 06/30/2015 The study was acquired using full field digital technology and interpreted from soft copy. ?? Current study was also evaluated with R2 CAD. 2D digital mammographic views, as well as 3D digital tomosynthesis were performed in the CC and MLO projections. CLINICAL: 49-year-old woman presents for evaluation of a tender lump in her right breast, which was recently aspirated by her referring provider. ??This fluid demonstrated cloudiness; therefore, she was placed on antibiotics. ??She is interesting in having surgical excision of this breast cyst. ??She is on hormone replacement therapy. ?? COMPARISONS: Comparison is made to exams dated: ??10/13/2014 mammogram - [facility], 01/28/2013 mammogram - [place], and 10/13/2014 ultrasound - [facility]. ?? BREAST TISSUE: The tissue of the right breast is heterogeneously dense, which may obscure small masses. ?? MAMMOGRAPHIC FINDINGS: A radiopaque BB was placed over the tender palpable lump in the lateral right breast, which corresponds with the largest breast cyst that has not appreciably changed since the prior mammogram. ??Targeted ultrasound will be performed. Multiple other benign-appearing masses in the right breast have not suspiciously changed and are consistent with cysts. ??In total, these cysts occupy approximately 40% of the breast volume. ??There is no suspicious mass, suspicious calcification or architectural distortion. ULTRASOUND FINDINGS: Targeted right breast ultrasound at the site of the tender palpable lump at 9 o'clock 12 cm from the nipple demonstrated a circumscribed hypoechoic cyst containing mobile debris measuring 5.2 x 4.3 x 2.7 cm. ??This corresponds with the mammographic mass. Procedure Note Provider, MD Samira - 10/04/2020 - [facility] 3D W/CAD - US BREAST - RIGHT UNILATERAL RIGHT DIGITAL DIAGNOSTIC MAMMOGRAM 3D/2D WITH CAD AND TARGETEDRIGHT ULTRASOUND WITH MEDIOLATERAL OBLIQUE CRANIOCAUDAL: 06/30/2015 The study was acquired using full field digital technology and interpretedfrom soft copy. Current study was also evaluated with R2 CAD. 2D digital mammographic views, as well as 3D digital tomosynthesis were performed in the CC and MLO projections. CLINICAL: 49-year-old woman presents for evaluation of a tender lump inher right breast, which was recently aspirated by her referring provider.This fluid demonstrated cloudiness; therefore, she was placed on antibiotics.She is interesting in having surgical excision of this breast cyst. She is on hormone replacement therapy. COMPARISONS: Comparison is made to exams dated: 10/13/2014 mammogram -[facility], 01[facility]28[facility]2013 [facility] [place]. BREAST TISSUE: The tissue of the right breast is heterogeneously dense,which may obscure small masses. MAMMOGRAPHIC FINDINGS: A radiopaque BB was placed over the tender palpablelump in the lateral right breast, which corresponds with the largest breastcyst that has not appreciably changed since the prior mammogram. Targeted ultrasound will be performed. Multiple other benign-appearing masses in the right breast have not suspiciously changed and are consistent with cysts. In total, these cysts occupy approximately 40% of the breast volume. There is no suspiciousmass, suspicious calcification or architectural distortion. ULTRASOUND FINDINGS: Targeted right breast ultrasound at the site of thetender palpable lump at 9 o'clock 12 cm from the nipple demonstrated acircumscribed hypoechoic cyst containing mobile debris measuring 5.2 x 4.3 x 2.7 cm.This corresponds with the mammographic mass. IMPRESSION: OVERALL STUDY BIRADS: 2 BENIGN No evidence of malignancy in the right breast. Benign cyst at the site of palpable concern at 9 o'clock. Multiple other benign-appearing masses inthe right breast have not significantly changed and are most consistent withcysts. This was discussed with Ms. Ace. Return to annual mammogram screening schedule is recommended in October2015. Electronically signed by: Dr. Tolu Cornell tx/:06/30/2015 09:41:50 Senior Biostatistician/Group Leader: Shanti Brooke RT (R)(M), [facility] letter sent: Normal Exam Reading location: OVERALL STUDY BIRADS: 2 Benign [EOD] us Asad Bailey MD IMG MAMMO PROCEDURES F inal Result * Diagnostic Mammogram Right W Jerman (06/30/2015 8:53 AM [facility]) Anatomical Region Laterality Modality Breast Right Mammography 06/30/2015 8:53 AM [facility] Impressions 06/30/2015 9:42 AM [facility] OVERALL STUDY BIRADS: 2 BENIGN No evidence of malignancy in the right breast. ??Benign cyst at the site of palpable concern at 9 o'clock. ??Multiple other benign-appearing masses in the right breast have not significantly changed and are most consistent with cysts. This was discussed with Ms. Ace. Return to annual mammogram screening schedule is recommended in October 2015. Electronically signed by: Dr. Tolu Cornell tx/:06/30/2015 09:41:50 ?? Senior Biostatistician/Group Leader: Shanti BANUELOS (R)(M), [facility] letter sent: Normal Exam ?? Reading location: OVERALL STUDY BIRADS: 2 Benign [EOD] Narrative 06/30/2015 9:42 AM [facility] - [facility] RT DIAGNOSTIC 3D W/CAD - US BREAST - RIGHT UNILATERAL RIGHT DIGITAL DIAGNOSTIC MAMMOGRAM 3D/2D WITH CAD AND TARGETED RIGHT ULTRASOUND WITH MEDIOLATERAL OBLIQUE CRANIOCAUDAL: 06/30/2015 The study was acquired using full field digital technology and interpreted from soft copy. ?? Current study was also evaluated with R2 CAD. 2D digital mammographic views, as well as 3D digital tomosynthesis were performed in the CC and MLO projections. CLINICAL: 49-year-old woman presents for evaluation of a tender lump in her right breast, which was recently aspirated by her referring provider. ??This fluid demonstrated cloudiness; therefore, she was placed on antibiotics. ??She is interesting in having surgical excision of this breast cyst. ??She is on hormone replacement therapy. ?? COMPARISONS: Comparison is made to exams dated: ??10/13/2014 mammogram - [facility], 01/28/2013 mammogram - [place], and 10/13/2014 ultrasound [facility]. ?? BREAST TISSUE: The tissue of the right breast is heterogeneously dense, which may obscure small masses. ?? MAMMOGRAPHIC FINDINGS: A radiopaque BB was placed over the tender palpable lump in the lateral right breast, which corresponds with the largest breast cyst that has not appreciably changed since the prior mammogram. ??Targeted ultrasound will be performed. Multiple other benign-appearing masses in the right breast have not suspiciously changed and are consistent with cysts. ??In total, these cysts occupy approximately 40% of the breast volume. ??There is no suspicious mass, suspicious calcification or architectural distortion. ULTRASOUND FINDINGS: Targeted right breast ultrasound at the site of the tender palpable lump at 9 o'clock 12 cm from the nipple demonstrated a circumscribed hypoechoic cyst containing mobile debris measuring 5.2 x 4.3 x 2.7 cm. ??This corresponds with the mammographic mass. Procedure Note Provider, MD Samira - 10/04/2020 - [facility] DIAG[facility] 3D W/CAD - US BREAST - RIGHT UNILATERAL RIGHT DIGITAL DIAGNOSTIC MAMMOGRAM 3D/2D WITH CAD AND TARGETEDRIGHT ULTRASOUND WITH MEDIOLATERAL OBLIQUE CRANIOCAUDAL: 06/30/2015 The study was acquired using full field digital technology and interpretedfrom soft copy. Current study was also evaluated with R2 CAD. 2D digital mammographic views, as well as 3D digital tomosynthesis were performed in the CC and MLO projections. CLINICAL: 49-year-old woman presents for evaluation of a tender lump inher right breast, which was recently aspirated by her referring provider.This fluid demonstrated cloudiness; therefore, she was placed on antibiotics.She is interesting in having surgical excision of this breast cyst. She is on hormone replacement therapy. COMPARISONS: Comparison is made to exams dated: 10/13/2014 mammogram -[facility], 01/28/2013 mammogram - [place], and 10/13/2014ultrasound [facility]. BREAST TISSUE: The tissue of the right breast is heterogeneously dense,which may obscure small masses. MAMMOGRAPHIC FINDINGS: A radiopaque BB was placed over the tender palpablelump in the lateral right breast, which corresponds with the largest breastcyst that has not appreciably changed since the prior mammogram. Targeted ultrasound will be performed. Multiple other benign-appearing masses in the right breast have not suspiciously changed and are consistent with cysts. In total, these cysts occupy approximately 40% of the breast volume. There is no suspiciousmass, suspicious calcification or architectural distortion. ULTRASOUND FINDINGS: Targeted right breast ultrasound at the site of thetender palpable lump at 9 o'clock 12 cm from the nipple demonstrated acircumscribed hypoechoic cyst containing mobile debris measuring 5.2 x 4.3 x 2.7 cm.This corresponds with the mammographic mass. IMPRESSION: OVERALL STUDY BIRADS: 2 BENIGN No evidence of malignancy in the right breast. Benign cyst at the site of palpable concern at 9 o'clock. Multiple other benign-appearing masses inthe right breast have not significantly changed and are most consistent withcysts. This was discussed with Ms. Ace. Return to annual mammogram screening schedule is recommended in October2015. Electronically signed by: Dr. Tolu Cornell nh/:06/30/2015 09:41:50 Senior Biostatistician/Group Leader: Shanti BANUELOS (R)(M), [facility] letter sent: Normal Exam Reading location: OVERALL STUDY BIRADS: 2 Benign [EOD] Asad Bailey MD IMG MAMMO PROCEDURES F inal Result * GENERAL RADIOLOGY REPORT (06/30/2015 12:00 AM [facility]) Anatomical Region Laterality Modality Radiographic Luba ging Narrative 06/30/2015 12:00 AM [facility] Ordered by an unspecified provider. Historical Provider IMG XR PROCEDURES Final R esult * GENERAL RADIOLOGY REPORT (06/30/2015 12:00 AM [facility]) Anatomical Region Laterality Modality Radiographic Luba ging Narrative 06/30/2015 12:00 AM [facility] Ordered by an unspecified provider. Historical Provider IMG XR PROCEDURES Final R esult documented in this encounter Visit Diagnoses Diagnosis Breast lump Lump or mass in breast documented in this encounter
--- OUTSIDE RECORDS SUMMARY | 2024-05-25 02:18 | XMS_ITS | Encounter Summary ---
Author Organization [facility] Healthcare Address [address] [place] [address] Care Team Providers Care Tester Printed Circuit Boards Name Role Phone Unavailable Primary Care Provider Unavailabl e Encounter Details Date Type Department Care Team (Latest Contact Info) Description 08/15/2017 10:45 AM CDT Hospital Encounter [facility] Stanley Hay MD [address] [facility] [address] [address] Pain in right elbow; Pain in left elbow Social History Tobacco Use Types Packs/Day Years Used Date Smoking Tobacco: Never Assessed Comments Unknown Sex and Gender Information Value Date Recorded Sex Assigned at Not on file 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 Gender Identity Not on file Sexual Orientation Not on file documented as of this encounter Plan of Treatment Not on file documented as of this encounter Procedures Procedure Name Priority Date/Time Associated Diagnosis Comments XR ELBOW RIGHT 3 OR MORE VIEWS Routine 08/15/2017 10:47 AM CDT XR ELBOW LEFT 3 OR MORE VIEWS Routine 08/15/2017 10:47 AM CDT documented in this encounter Results * XR Elbow Left 3 or More Views (08/15/2017 10:47 AM CDT) Anatomical Region Laterality Modality Upper Extremities, Elbow Left Radiogr aphic Imaging 08/15/2017 10:4 7 AM CDT Impressions 08/15/2017 11:49 AM CDT ??No acute osseous abnormality. THIS IS AN ELECTRONICALLY VERIFIED FINAL REPORT 08/15/2017 11:46 AM - Electronically signed by Neo SNYDER: LILLIAN D: ??08/15/2017 11:46 AM T: ??08/15/2017 11:46 AM Report ID: [id number] Reading Location: ??[id number] [EOD] Narrative 08/15/2017 11:49 AM CDT EXAM DESCRIPTION: ??Elbow LT 3 View Min COMPLETED DATE/TIME: ??08/15/2017 10:56 am REASON FOR STUDY: ??Three views left elbow COMPARISON: ??No prior TECHNIQUE: ??AP, lateral, and oblique radiographic views acquired of the left elbow. FINDINGS: BONES/JOINTS: No acute fracture or dislocation. No suspicious bone lesion. ?? Joint spaces are maintained with no erosions. SOFT TISSUES: No foreign body. No soft tissue swelling. OTHER: No other significant finding. Procedure Note Provider, MD Samira - 10/04/2020 EXAM DESCRIPTION: Elbow LT 3 View Min COMPLETED DATE/TIME: 08/15/2017 10:56 am REASON FOR STUDY: Three views left elbow COMPARISON: No prior TECHNIQUE: AP, lateral, and oblique radiographic views acquired of theleft elbow. FINDINGS: BONES/JOINTS: No acute fracture or dislocation. No suspicious bone lesion. Joint spaces are maintained with no erosions. SOFT TISSUES: No foreign body. No soft tissue swelling. OTHER: No other significant finding. IMPRESSION: No acute osseous abnormality. THIS IS AN ELECTRONICALLY VERIFIED FINAL REPORT 08/15/2017 11:46 AM - Electronically signed by Neo SNYDER: LILLIAN Report ID: [id number] Reading Location: [id number] [EOD] Stanley Hay MD IMG XR PROCEDURES Final Re sult * XR Elbow Right 3 or More Views (08/15/2017 10:47 AM CDT) Anatomical Region Laterality Modality Upper Extremities, Elbow Right Radiogr aphic Imaging 08/15/2017 10:4 7 AM CDT Impressions 08/15/2017 11:48 AM CDT ??Essentially normal right elbow. THIS IS AN ELECTRONICALLY VERIFIED FINAL REPORT 08/15/2017 11:45 AM - Electronically signed by Neo SNYDER: LILLIAN D: ??08/15/2017 11:45 AM T: ??08/15/2017 11:45 AM Report ID: [id number] Reading Location: ??[id number] [EOD] Narrative 08/15/2017 11:48 AM CDT EXAM DESCRIPTION: ??Elbow RT 3 View Min COMPLETED DATE/TIME: ??08/15/2017 10:55 am REASON FOR STUDY: ??Posterior bilateral elbow pain over the past year. ??No specific injury. COMPARISON: ??None available. TECHNIQUE: ??AP, lateral, and oblique radiographic views acquired of the right elbow. FINDINGS: BONES/JOINTS: Normal mineralization with no acute fracture or dislocation. ?? Joint spaces are intact. ??No significant joint effusion. SOFT TISSUES: Unremarkable. OTHER: No other significant finding. Procedure Note Provider, MD Samira - 10/04/2020 EXAM DESCRIPTION: Elbow RT 3 View Min COMPLETED DATE/TIME: 08/15/2017 10:55 am REASON FOR STUDY: Posterior bilateral elbow pain over the past year. No specific injury. COMPARISON: None available. TECHNIQUE: AP, lateral, and oblique radiographic views acquired of theright elbow. FINDINGS: BONES/JOINTS: Normal mineralization with no acute fracture or dislocation. Joint spaces are intact. No significant joint effusion. SOFT TISSUES: Unremarkable. OTHER: No other significant finding. IMPRESSION: Essentially normal right elbow. THIS IS AN ELECTRONICALLY VERIFIED FINAL REPORT 08/15/2017 11:45 AM - Electronically signed by Neo SNYDER Report ID: [id number] Reading Location: [id number] [EOD] Stanley Hay MD IMG XR PROCEDURES Final Re sult documented in this encounter Visit Diagnoses Diagnosis Pain in right elbow Pain in joint, upper arm Pain in left elbow Pain in joint, upper arm documented in this encounter
--- OUTSIDE RECORDS SUMMARY | 2024-05-25 02:18 | XMS_ITS | Encounter Summary ---
Author Organization [facility] Address [address] [place] [address] Care Team Providers Care Freight Inspector Name Role Phone Christ Hu Primary Care Provider Reason for Visit * Reason Onset Date Comments Eletone Cream Script 09/30/2018 Encounter Details Date Type Department Care Team (Late st Contact Info) Description 09/30/2018 Telephone [facility] Primary Care [address] [facility] [address] [place] [address] Christ Hu PA [address] [place] [address] Eletone Cream Script Social History Tobacco Use Types Packs/Day Years Used Date Smoking Tobacco: Never Alcohol Use Standard Drinks/Week Comments Yes 0 (1 standard drink = 0.6 oz pur e alcohol) Comments Unknown Sex and Gender Information Value Date Recorded Sex Assigned at Not on file 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 * Telephone Encounter - Merary Tucker - 09/30/2018 2:01 PM CDT Tima states he can accept verbal for Eletone Cream; [facility] couldn't find in system. I did fax [employer] and Cipro scripts to [facility] @ [phone]. Thanks, Jodi Alfred ph: [phone] documented in this encounter Plan of Treatment Not on file documented as of this encounter Visit Diagnoses Not on filedocumented in this encounter Care Teams Freight Inspector Relationship Specialty Start Date End Date Christ Hu PA PCP - General 07/20/18 documented as of this encounter
--- OUTSIDE RECORDS SUMMARY | 2024-05-25 02:18 | XMS_ITS | Encounter Summary ---
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
--- OUTSIDE RECORDS SUMMARY | 2024-05-25 02:18 | XMS_ITS | Encounter Summary ---
Author Organization [facility] Healthcare Address [address] [place] [address] Care Team Providers Care Creative Specialist Name Role Phone Unavailable Primary Care Provider Unavailabl e Encounter Details Date Type Department Care Team (Latest Contact Info) Description 09/21/2015 7:10 AM CDT Hospital Encounter [facility] Radu Dash MD [address] [place] [id number] Diffuse cystic mastopathy of left breast; Fibroadenosis of left breast; Diffuse cystic mastopathy of right breast; Benign neoplasm of right breast Social History Tobacco Use Types Packs/Day Years Used Date Smoking Tobacco: Never Assessed Comments Unknown Sex and Gender Information Value Date Recorded Sex Assigned at Not on file 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 Gender Identity Not on file Sexual Orientation Not on file documented as of this encounter Plan of Treatment Not on file documented as of this encounter Procedures Procedure Name Priority Date/Time Associated Diagnosis Comments GENERAL RADIOLOGY REPORT 09/24/2015 12:00 AM CDT SCAN - PATHOLOGY 09/22/2015 12:0 0 AM CDT US GUIDED BREAST BIOPSY RIGHT Routine 09/21/2015 7:15 AM CDT US GUIDED BREAST BIOPSY LEFT Routine 09/21/2015 7:15 AM CDT GENERAL RADIOLOGY REPORT 09/21/2015 12:00 AM CDT GENERAL RADIOLOGY REPORT 09/21/2015 12:00 AM CDT documented in this encounter Results * GENERAL RADIOLOGY REPORT (09/24/2015 12:00 AM CDT) Anatomical Region Laterality Modality Radiographic Luba ging Narrative 09/24/2015 12:00 AM CDT Ordered by an unspecified provider. us Historical Provider MD NUGENT XR PROCEDURES Final R esult * SCAN - PATHOLOGY (09/22/2015 12:00 AM CDT) Narrative 09/22/2015 12:00 AM CDT Ordered by an unspecified provider. us Historical Provider Final Res ult * US Guided Breast Biopsy Left (09/21/2015 7:15 AM CDT) Anatomical Region Laterality Modality Breast Left Ultrasound 09/21/2015 7:15 AM CDT Impressions 09/21/2015 12:54 PM CDT Images submitted from an ultrasound guided, vacuum assisted needle biopsy of a left breast cyst. The tissue marker is positioned as above. Recommend correlation with pathology. THIS IS AN ELECTRONICALLY VERIFIED REPORT 09/21/2015 12:52 PM: ??Donny Ayala M.D. ?? Donny Ayala M.D. MD:tristen 09:36 AM 09:40 AM [facility] [EOD] Narrative 09/21/2015 12:54 PM CDT EXAMINATION: Images obtained during a left breast ultrasound guided, vacuum assisted needle biopsy and post procedure mammogram HISTORY: 49-year-old with left breast cyst at 12 o'clock. TECHNIQUE: Images were submitted from a left breast ultrasound guided, vacuum assisted needle biopsy and were evaluated at the time of dictation. Post procedural mammography was also performed. The radiologist was not present during the procedure. COMPARISON: Prior breast imaging dated 08/24/2015. FINDINGS: ??The procedure was performed by Dr. Dash. ?? Submitted sonographic images demonstrate the targeted cyst located at 12 o'clock, 6 cm from the nipple. ??A vacuum assisted needle biopsy device is seen within the region of the targeted cyst. ??Sonographic images denote the placement of a marker clip at the biopsy site. ??For full details, please refer to the procedure report. Post procedure CC and true lateral mammography demonstrates a biopsy clip at 12 o'clock, middle depth, with adjacent post biopsy changes. ??The previously noted cyst at this location is no longer evident. ??Multiple other round/oval left breast masses demonstrate no significant interval change, most consistent with benign entities (probably cysts as well). ?? Procedure Note Provider, MD Samira - 10/04/2020 EXAMINATION: Images obtained during a left breast ultrasound guided,vacuum assisted needle biopsy and post procedure mammogram HISTORY: 49-year-old with left breast cyst at 12 o'clock. TECHNIQUE: Images were submitted from a left breast ultrasound guided,vacuum assisted needle biopsy and were evaluated at the time of dictation. Post procedural mammography was also performed. The radiologist was not present during the procedure. COMPARISON: Prior breast imaging dated 08/24/2015. FINDINGS: The procedure was performed by Dr. Dash. Submitted sonographic images demonstrate the targeted cyst located at 12 o'clock, 6 cm from the nipple. A vacuum assisted needle biopsy device isseen within the region of the targeted cyst. Sonographic images denote the placement of a marker clip at the biopsy site. For full details, pleaserefer to the procedure report. Post procedure CC and true lateral mammography demonstrates a biopsy clipat 12 o'clock, middle depth, with adjacent post biopsy changes. Thepreviously noted cyst at this location is no longer evident. Multiple otherround/oval left breast masses demonstrate no significant interval change, mostconsistent with benign entities (probably cysts as well). IMPRESSION: Images submitted from an ultrasound guided, vacuum assisted needle biopsyof a left breast cyst. The tissue marker is positioned as above. Recommend correlation with pathology. THIS IS AN ELECTRONICALLY VERIFIED REPORT 09/21/2015 12:52 PM: Donny Ayala M.D. Donny Ayala M.D. MD:tristen 09:36 AM 09:40 AM [facility] [EOD] Radu Dash MD IMG MAMMO PROCEDURES Final Result * US Guided Breast Biopsy Right (09/21/2015 7:15 AM CDT) Anatomical Region Laterality Modality Breast Right Ultrasound 09/21/2015 7:15 AM CDT Impressions 09/21/2015 12:54 PM CDT Images submitted from an ultrasound guided, vacuum assisted needle biopsy of a right breast cyst at 9 o'clock. The tissue marker is positioned as above. Recommend correlation with pathology. THIS IS AN ELECTRONICALLY VERIFIED REPORT 09/21/2015 12:52 PM: ??Donny Ayala M.D. ?? Donny Ayala M.D. MD:tristen 09:30 AM 09:34 AM [facility] [EOD] Narrative 09/21/2015 12:54 PM CDT EXAMINATION: Images obtained during a right breast ultrasound guided, vacuum assisted needle biopsy and post procedure mammogram HISTORY: 49-year-old female with right breast cyst at 9 o'clock. TECHNIQUE: ??Images were submitted from a right breast ultrasound guided, vacuum assisted needle biopsy and were evaluated at the time of dictation. Post procedural mammography was also performed. The radiologist was not present during the procedure. COMPARISON: Prior breast imaging dated 06/30/2015. FINDINGS: ??The procedure was performed by Dr. Dash. ?? Submitted sonographic images demonstrate the targeted cyst located at 9 o'clock, 12 cm from the nipple. A vacuum assisted needle biopsy device is seen within the region of the targeted mass. ??Sonographic images denote the placement of a marker clip at the biopsy site. ??For full details, please refer to the procedure report. Post procedure CC and true lateral mammography demonstrates a biopsy clip at 9 o'clock, posterior depth. ??The previously noted cyst at this location is no longer evident. ??Adjacent post biopsy changes are identified. ??Multiple other round/oval circumscribed masses are again seen, most consistent with benign entities (likely cysts as well). ?? Procedure Note Provider, MD Samira - 10/04/2020 EXAMINATION: Images obtained during a right breast ultrasound guided,vacuum assisted needle biopsy and post procedure mammogram HISTORY: 49-year-old female with right breast cyst at 9 o'clock. TECHNIQUE: Images were submitted from a right breast ultrasound guided, vacuum assisted needle biopsy and were evaluated at the time of dictation. Post procedural mammography was also performed. The radiologist was not present during the procedure. COMPARISON: Prior breast imaging dated 06/30/2015. FINDINGS: The procedure was performed by Dr. Dash. Submitted sonographic images demonstrate the targeted cyst located at 9 o'clock, 12 cm from the nipple. A vacuum assisted needle biopsy device isseen within the region of the targeted mass. Sonographic images denote the placement of a marker clip at the biopsy site. For full details, pleaserefer to the procedure report. Post procedure CC and true lateral mammography demonstrates a biopsy clipat 9 o'clock, posterior depth. The previously noted cyst at this location isno longer evident. Adjacent post biopsy changes are identified. Multipleother round/oval circumscribed masses are again seen, most consistent withbenign entities (likely cysts as well). IMPRESSION: Images submitted from an ultrasound guided, vacuum assisted needle biopsyof a right breast cyst at 9 o'clock. The tissue marker is positioned as above. Recommend correlation with pathology. THIS IS AN ELECTRONICALLY VERIFIED REPORT 09/21/2015 12:52 PM: Donny Ayala M.D. Donny Ayala M.D. :tristen 09:30 AM 09:34 AM [facility] [EOD] us Radu Dash MD IMG MAMMO PROCEDURES Final Result * GENERAL RADIOLOGY REPORT (09/21/2015 12:00 AM CDT) Anatomical Region Laterality Modality Radiographic Luba ging Narrative 09/21/2015 12:00 AM CDT Ordered by an unspecified provider. us Historical Provider IMG XR PROCEDURES Final R esult * GENERAL RADIOLOGY REPORT (09/21/2015 12:00 AM CDT) Anatomical Region Laterality Modality Radiographic Luba ging Narrative 09/21/2015 12:00 AM CDT Ordered by an unspecified provider. us Historical Provider IMG XR PROCEDURES Final R esult documented in this encounter Visit Diagnoses Diagnosis Diffuse cystic mastopathy of left breast Fibroadenosis of left breast Diffuse cystic mastopathy of right breast Benign neoplasm of right breast documented in this encounter
--- OUTSIDE RECORDS SUMMARY | 2024-05-25 02:18 | XMS_ITS | Encounter Summary ---
Author Organization [facility] Address [address] [place] [address] Care Team Providers Care Room Service Manager Name Role Phone Christ Hu Primary Care Provider [phone] Encounter Details Date Type Department Care Team (Late st Contact Info) Description 10/02/2018 Telephone [facility] Primary Care [address] [place] [address] Christ Hu PA [address] [place] [address] Social History Tobacco Use Types Packs/Day Years Used Date Smoking Tobacco: Never Alcohol Use Standard Drinks/Week Comments Yes 0 (1 standard drink = 0.6 oz pur e alcohol) Comments Unknown Sex and Gender Information Value Date Recorded Sex Assigned at Not on file 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 It is not covered by her insurance. Patient informed. She wants it sent to [facility] pharmacy to see if it can be filled there instead. Prescription sent. documented in this encounter Plan of Treatment Not on file documented as of this encounter Visit Diagnoses Not on filedocumented in this encounter Discontinued Medications Medication Sig Discontinue Reason Start Date End Da te emollient combination no.25 (ELETONE) cream Apply liberally to the affected area three times a day as needed Reorder 09/30/2018 10/02/2018 documented as of this encounter Care Teams Room Service Manager Relationship Specialty Start Date End Date Christ Hu PA PCP - General 07/20/18 documented as of this encounter
--- OUTSIDE RECORDS SUMMARY | 2024-05-25 02:18 | XMS_ITS | Encounter Summary ---
Author Organization [facility] Healthcare Address [address] [place] [address] Care Team Providers Care Tailor Women'S Garment Alteration Name Role Phone Unavailable Primary Care Provider Unavailabl e Encounter Details Date Type Department Care Team (Latest Contact Info) Description 09/29/2014 8:25 PM CDT - 09/30/2014 5:25 AM CDT Hospital Encounter [facility] OP Trev Riojas MD [address] [facility] [address] [address] Other dyspnea and respiratory abnormality; Hypersomnia Social History Tobacco Use Types Packs/Day Years Used Date Smoking Tobacco: Never Assessed Comments Unknown Sex and Gender Information Value Date Recorded Sex Assigned at Not on file 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 Gender Identity Not on file Sexual Orientation Not on file documented as of this encounter Last Filed Vital Signs Vital Sign Reading Time Taken Comments Blood Pressure - - Pulse - - Temperature - - Respiratory Rate - - Oxygen Saturation 100% 09/29/2014 11:55 PM CDT Inhaled Oxygen Concentration - - Weight - - Height - - Body Mass Index - - documented in this encounter Plan of Treatment Not on file documented as of this encounter Procedures Procedure Name Priority Date/Time Associated Diagnosis Comments SLEEP LAB/STUDY - RESULT 10/07/2014 12:00 AM CDT documented in this encounter Results * SLEEP LAB/STUDY - RESULT (10/07/2014 12:00 AM CDT) Narrative 10/07/2014 12:00 AM CDT Ordered by an unspecified provider. us Historical Provider MD Final Res ult documented in this encounter Visit Diagnoses Diagnosis Other dyspnea and respiratory abnormality Hypersomnia Hypersomnia, unspecified documented in this encounter
--- OUTSIDE RECORDS SUMMARY | 2024-05-25 02:18 | XMS_ITS | Encounter Summary ---
Author Organization [facility] Address [address] [place] [address] Care Team Providers Care Science Professor Name Role Phone Christ Hu Primary Care Provider [phone] Reason for Visit * Reason Onset Date Comments Medication Question 11/03/2018 Encounter Details Date Type Department Care Team (Late st Contact Info) Description 11/03/2018 Telephone [facility] Primary Care [address] [facility] [address] [place] [address] Betzaida Saunders MA Medication Question Social History Tobacco Use Types Packs/Day Years Used Date Smoking Tobacco: Never Alcohol Use Standard Drinks/Week Comments Yes 0 (1 standard drink = 0.6 oz pur e alcohol) Comments Unknown Sex and Gender Information Value Date Recorded Sex Assigned at Not on file 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 * Telephone Encounter - Christ Hu PA - 11/03/2018 10:05 AM CDT 1 tab tid/prn * Telephone Encounter - Betzaida Saunders MA - 11/03/2018 9:30 AM CDT [facility] called. Patient's prescription for Motrin 800mg. How should patient be takingmedication. Prescription say 3 times daily. Or should she be taking 1 tablet 3 times daily? Please Advise. Thanks documented in this encounter Plan of Treatment Not on file documented as of this encounter Visit Diagnoses Not on filedocumented in this encounter Care Teams Science Professor Relationship Specialty Start Date End Date Christ Hu PA PCP - General 07/20/18 documented as of this encounter
--- OUTSIDE RECORDS SUMMARY | 2024-05-25 02:18 | XMS_ITS | Encounter Summary ---
Author Organization [facility] Healthcare Address [address] [place] [address] Care Team Providers Care Wrapper Caser Name Role Phone Unavailable Primary Care Provider Unavailabl e Encounter Details Date Type Department Care Team (Latest Contact Info) Description 08/15/2017 12:13 PM CDT Hospital Encounter [facility] Asad Bailey MD [address] [address] Encounter for screening mammogram for malignant neoplasm of breast Social History Tobacco Use Types Packs/Day Years Used Date Smoking Tobacco: Never Assessed Comments Unknown Sex and Gender Information Value Date Recorded Sex Assigned at Not on file 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 Gender Identity Not on file Sexual Orientation Not on file documented as of this encounter Plan of Treatment Not on file documented as of this encounter Procedures Procedure Name Priority Date/Time Associated Diagnosis Comments SCREENING MAMMOGRAM BILATERAL W JERMAN Routine 08/15/2017 12:17 PM CDT GENERAL RADIOLOGY REPORT 08/15/2017 12:00 AM CDT documented in this encounter Results * Screening Mammogram Bilateral W Jerman (08/15/2017 12:17 PM CDT) Anatomical Region Laterality Modality Breast Bilateral Mammography 08/15/2017 12:1 7 PM CDT Impressions 08/15/2017 12:50 PM CDT BI-RAD 2 ??BENIGN There is no mammographic evidence of malignancy. A 1 year screening mammogram is recommended. ?? The patient has been or will be contacted. ?? The patient will be entered into a reminder system with a target due date of 1 year for her next screening exam. Electronically signed by: Donny Ayala M.D., md/:08/15/2017 12:48:14 ?? Systems Programmer: Kylie Lama RT(R)(M), [facility] letter sent: Normal Exam ?? Reading location: [facility] BI-RADS: 2 Benign [EOD] Narrative 08/15/2017 12:50 PM CDT - MG BILATERAL DIGITAL SCREENING MAMMOGRAM 3D/2D WITH MEDIOLATERAL OBLIQUE CRANIOCAUDAL: 08/15/2017 The study was acquired using full field digital technology and interpreted from soft copy. ?? 2D digital mammographic views, as well as 3D digital tomosynthesis were performed in the CC and MLO projections. CLINICAL: Routine mammogram. Denies any problems today. No personal history of breast cancer. No family history of breast cancer. ?? COMPARISONS: Comparison is made to exams dated: ??08/24/2015 ultrasound, 08/24/2015 mammogram, 06/30/2015 ultrasound, 06/30/2015 mammogram, 10/13/2014 ultrasound, and 10/13/2014 mammogram - [facility]. ?? BREAST TISSUE: The tissue of both breasts is heterogeneously dense, which may obscure small masses. ?? FINDINGS: There are multiple waxing/waning, round/oval masses with partially circumscribed, partially obscured margins present within both breasts. These are most consistent with benign entities (i.e. cysts) given their morphology, multiplicity, bilaterality, and fluctuating nature. A biopsy clip is present within each breast. ??No suspicious mass, calcifications, or other significant mammographic findings are seen within either breast. ??There has been no suspicious interval mammographic change involving either breast. Procedure Note Provider, MD Samira - 10/04/2020 - MG BILATERAL DIGITAL SCREENING MAMMOGRAM 3D/2D WITH MEDIOLATERAL OBLIQUE CRANIOCAUDAL: 08/15/2017 The study was acquired using full field digital technology and interpretedfrom soft copy. 2D digital mammographic views, as well as 3D digital tomosynthesis were performed in the CC and MLO projections. CLINICAL: Routine mammogram. Denies any problems today. No personalhistory of breast cancer. No family history of breast cancer. COMPARISONS: Comparison is made to exams dated: 08/24/2015 ultrasound,08/24/2015 mammogram, 06/30/2015 ultrasound, 06/30/2015 mammogram, 10/13/2014ultrasound, and 10/13/2014 mammogram - [facility]. BREAST TISSUE: The tissue of both breasts is heterogeneously dense, whichmay obscure small masses. FINDINGS: There are multiple waxing/waning, round/oval masses with partially circumscribed, partially obscured margins present within both breasts. These are most consistent with benign entities (i.e. cysts) given theirmorphology, multiplicity, bilaterality, and fluctuating nature. A biopsy clip is present within each breast. No suspicious mass, calcifications, or other significant mammographic findings are seen within either breast. There has been no suspicious interval mammographic change involving either breast. IMPRESSION: BI-RAD 2 BENIGN There is no mammographic evidence of malignancy. A 1 year screeningmammogram is recommended. The patient has been or will be contacted. The patient will be entered into a reminder system with a target due dateof 1 year for her next screening exam. Electronically signed by: Donny Ayala M.D., md/:08/15/2017 12:48:14 Systems Programmer: Kylie Lama RT(R)(M), [facility] letter sent: Normal Exam Reading location: [facility] BI-RADS: 2 Benign [EOD] Asad NUGENT MAMMO PROCEDURES F inal Result * GENERAL RADIOLOGY REPORT (08/15/2017 12:00 AM CDT) Anatomical Region Laterality Modality Radiographic Luba ging Narrative 08/15/2017 12:00 AM CDT Ordered by an unspecified provider. us Historical Provider MD NUGENT XR PROCEDURES Final R esult documented in this encounter Visit Diagnoses Diagnosis Encounter for screening mammogram for malignant neoplasm of breast documented in this encounter
--- OUTSIDE RECORDS SUMMARY | 2024-05-25 02:18 | XMS_ITS | Encounter Summary ---
Author Organization [facility] Address [address] [place] [address] Care Team Providers Care Manager Insurance Name Role Phone Christ Hu Primary Care Provider [phone] Reason for Visit * Reason Comments Patient c/o joint pain pain in feet, kne es, hips and shoulders Encounter Details Date Type Department Care Team (Latest Contact Info) Description 03/18/2019 2:00 PM CDT Office Visit [facility] Primary Care [address] [place] [address] Christ Hu PA [address] [place] [address] Essential hypertension (Primary Dx); Osteoarthritis, unspecified osteoarthritis type, unspecified site; Foot pain, bilateral Social History Tobacco Use Types Packs/Day Years Used Date Smoking Tobacco: Never Alcohol Use Standard Drinks/Week Comments Yes 0 (1 standard drink = 0.6 oz pur e alcohol) PHQ-2 Answer Date Recorded PHQ-2 Score 0 03/18/2019 Comments Unknown Sex and Gender Information Value Date Recorded Sex Assigned at Not on file 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 Gender Identity Not on file Sexual Orientation Not on file documented as of this encounter Last Filed Vital Signs Vital Sign Reading Time Taken Comments Blood Pressure 126/90 03/18/2019 2:16 PM CDT Pulse 86 03/18/2019 2:16 PM CDT Temperature 36.7 ??C (98 ??F) 03/18/2019 2:16 PM CDT Respiratory Rate 16 03/18/2019 2:16 PM CDT Oxygen Saturation - - Inhaled Oxygen Concentration - - Weight 92.1 kg (203 lb) 03/18/2019 2:16 PM CDT Height 152.4 cm (5') 03/18/2019 2:16 PM CDT Body Mass Index 39.65 03/18/2019 2:16 PM CDT documented in this encounter Progress Notes * Christ Hu PA - 03/18/2019 2:00 PM CDT Images from the original note were not included. Subjective/Objective Patient ID: Shasta Ace is a 53 y.o. female. Chief Complaint Patient c/o joint pain (pain in feet, knees, hips and shoulders) Vitals: 03/18/19 1416 BP: 126/90 BP Location: Left arm Patient Position: Sitting Pulse: 86 Resp: 16 Temp: 36.7 ??C (98 ??F) TempSrc: Oral Weight: 92.1 kg (203 lb) Height: 152.4 cm (5') Patient is in for routine follow-up for the following medical conditions labs and medications. Patient is having bilateral foot pain, started about 1 month ago, no injury, no new shoes, also noticed joints are hurting, knee's, hips, shoulder, not associated with cold weather, no FMHX Rheum or joint issues Past Medical History: Diagnosis Date ??? Anxiety ??? Dysphagia ??? HX OTHER MEDICAL lump in breast; Comments: BONITA 11/16/2013 - ??? Hypertension ??? Obesity Past Surgical History: Procedure Laterality Date ??? SECTION ??? COLECTOMY Colectomy ??? OTHER [...] fluticasone propionate (FLONASE ALLERGY RELIEF), hydrochlorothiazide (HYDRODIURIL), ibuprofen, multivitamin, and telmisartan (MICARDIS). Review of Systems [...] equal, round, and reactive to light. Neck: Musculoskeletal: Neck supple. Cardiovascular: Rate and Rhythm: Normal rate and regular rhythm. Heart sounds: Normal heart sounds. Pulmonary: Breath sounds: Normal breath sounds. Abdominal: General: Bowel sounds are normal. Palpations: Abdomen is soft. Musculoskeletal: Normal range of motion. Comments: Bilateral Achilles tendon is very tight this does reproduce her signs and symptoms there are no other findings on examination Skin: General: Skin is warm and dry. Assessment/Plan Diagnoses and all orders for this visit: Essential hypertension (Primary) - Comprehensive metabolic panel; Future - Lipid panel; Future 5 day BP check This is a stable chronic condition. Monitor blood pressure, call if out of parameters as we discussed. Low sodium and caffeine diet. baby asa as discussed if applicable. Diet, exercise and weight reduction. Labs as ordered. F/U routine Osteoarthritis, unspecified osteoarthritis type, unspecified site - TSH reflex to free T4; Future Labs as ordered Foot pain, bilateral Achilles stretching, I demonstrated, motrin and ice, option for PT Orders Placed This Encounter Procedures ??? Comprehensive metabolic panel Standing Status: Future Number of Occurrences: 1 Standing Expiration Date: 03/18/2020 ??? Lipid panel Standing Status: Future Number of Occurrences: 1 Standing Expiration Date: 03/18/2020 ??? TSH reflex to free T4 Standing Status: Future Number of Occurrences: 1 Standing Expiration Date: 03/18/2020 Body mass index is 39.65 kg/m??. BMI Follow-up includes: nutrition counseling and exercise counseling. *This note is dictated using Shutl voice recognition software, variances in spelling and vocabulary are possible and unintentional.* TUAN Sky documented in this encounter Plan of Treatment Scheduled Orders Name Type Priority Associated Diagnoses Orde r Schedule Comprehensive metabolic panel Lab Routine Essential hypertension Expected: 03/18/2019, Expires: 03/18/2020 Lipid panel Lab Routine Essential hypertension Expected: 03/18/2019, Expires: 03/18/2020 TSH reflex to free T4 Lab Routine Osteoarthritis, unspecified osteoarthritis type, unspecified site Expected: 03/18/2019, Expires: 03/18/2020 documented as of this encounter Visit Diagnoses Diagnosis Essential hypertension- Primary Unspecified essential hypertension Osteoarthritis, unspecified osteoarthritis type, unspecified site Foot pain, bilateral documented in this encounter Discontinued Medications Medication Sig Discontinue Reason Start Date End Da te sertraline (ZOLOFT) 25 mg tablet Take 1 tablet (25 mg total) by mouth daily 09/30/2018 03/18/2019 documented as of this encounter Care Teams Manager Insurance Relationship Specialty Start Date End Date Christ Hu PA PCP - General 07/20/18 documented as of this encounter
--- OUTSIDE RECORDS SUMMARY | 2024-05-25 02:18 | XMS_ITS | Encounter Summary ---
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
--- OUTSIDE RECORDS SUMMARY | 2024-05-25 02:19 | XMS_ITS | Encounter Summary ---
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 No radiographic evidence of an acute cardiopulmonary process. THIS IS AN ELECTRONICALLY VERIFIED REPORT 10/09/2012 11:40 AM: ??Yair Taves, M.D. Yair Barahona M.D. AT:at 11:40 AM 11:40 AM [EOD] Narrative 10/09/2012 11:44 AM CDT EXAMINATION: ??PA and Lateral Radiographs of the Chest DATE: ??10/09/2012 at 11:32 a.m. COMPARISON: ??None HISTORY: ??Cough TECHNIQUE: ??PA and lateral radiographs of the chest were submitted for review. FINDINGS: ?? The cardiac silhouette is within normal limits. ??The trachea is midline. ??The lungs are normally expanded without evidence of consolidation, pneumothorax, or large pleural effusion. ??Mild degenerative changes of the spine are present. Procedure Note Provider, MD Samira - 10/04/2020 EXAMINATION: PA and Lateral Radiographs of the Chest DATE: 10/09/2012 at 11:32 a.m. COMPARISON: None HISTORY: Cough TECHNIQUE: PA and lateral radiographs of the chest were submitted forreview. FINDINGS: The cardiac silhouette is within normal limits. The trachea is midline.The lungs are normally expanded without evidence of consolidation,pneumothorax, or large pleural effusion. Mild degenerative changes of the spine arepresent. IMPRESSION: No radiographic evidence of an acute cardiopulmonary process. THIS IS AN ELECTRONICALLY VERIFIED REPORT 10/09/2012 11:40 AM: Yair Barahona M.D. Yair Barahona M.D. AT:at 11:40 AM 11:40 AM [EOD] Christ DICKERSON IMG XR PROCEDURES Final Result documented in this encounter Visit Diagnoses Diagnosis Cough documented in this encounter
--- OUTSIDE RECORDS SUMMARY | 2024-05-25 02:19 | XMS_ITS | Encounter Summary ---
Author Organization [facility] Facility Care Team Providers Care Mill Dresser Name Role Phone Unavailable Primary Care Provider Unavailabl e Encounter Details Date Type Department Care Team (Late st Contact Info) Description 11/16/2013 - 11/16/2013 11:59 PM CDT Hospital Encounter 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 [facility] ? Department of Laboratories ?[place] [address] ?[facility] ?CAM 14-A Patient Name: ? SHASTA ACE Med Rec Number: ?? [id number] Date of : ?1965 Gender/Age: ? Female 47 years Doctor: ? Naila Remy M.D. Report Date/Time: 11/17/2013 17:10 ?* Abnormal ??C Critical ??f Footnote ??^ Corrected ??L Low ??H High ?i Interp Data ??@ Reference Lab ?Chart Type: Cumulative ? CHEMISTRY ? Standard Blood Chemistry ?11/16/2013 ?10:38:25 Test ?Units ?Reference Aldolase ??7.7 ? Units/L ??0.0-8.0 us Historical Provider MD LAB BLOOD ORDERABLES Greta traylor Result Performing Organization Address [facility] Co de Phone Number HISTORICAL RESULTS * Serum aldolase (11/16/2013 10:38 AM CDT) Aldolase 7.7 0.0 - 8.0 Units/L HISTORICAL RESULTS Serum 11/16/2013 10:3 8 AM CDT Naila Remy MD LAB BLOOD ORDERABLES Final R esult Performing Organization Address [facility] Co de Phone Number HISTORICAL RESULTS documented in this encounter Visit Diagnoses Diagnosis Pain in joint documented in this encounter
--- OUTSIDE RECORDS SUMMARY | 2024-05-25 02:19 | XMS_ITS | Encounter Summary ---
Author Organization [facility] Healthcare Address [address] [place] [address] Care Team Providers Care Gas Distribution And Emergency Clerk Name Role Phone Unavailable Primary Care Provider Unavailabl e Encounter Details Date Type Department Care Team (Latest Contact Info) Description 11/14/2012 11:16 AM CDT Hospital Encounter [facility] OP Christ Hu, PA [address] [place] [address] Rash and other nonspecific skin eruption; Pain in joint Social History Tobacco Use Types Packs/Day Years Used Date Smoking Tobacco: Never Assessed Comments Unknown Sex and Gender Information Value Date Recorded Sex Assigned at Not on file 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 Gender Identity Not on file Sexual Orientation Not on file documented as of this encounter Plan of Treatment Not on file documented as of this encounter Procedures Procedure Name Priority Date/Time Associated Diagnosis Comments NIRMALA REFLEX TO QUANTITATIVE Routine 11/14/2012 11:21 AM CDT T3, TOTAL Routine 11/14/2012 11:21 AM CDT TSH Routine 11/14/2012 11:21 AM CDT T4, FREE Routine 11/14/2012 11:21 AM CDT documented in this encounter Results * NIRMALA reflex to quantitative (11/14/2012 11:21 AM CDT) NIRMALA Screen None Detected None Detected 11/16/2012 2:46 PM CDT [facility] HISTORICAL RESULTS Comment: No antibodies to Anti-Nuclear Antibodies (NIRMALA) detected. No ?? further testing will be performed. ?? INTERPRETIVE INFORMATION: Anti-Nuclear Antibodies (NIRMALA), ?? IgG by VIC ?? NIRMALA specimens are screened using enzyme-linked ?? immunosorbent assay (VIC) methodology. All VIC results ?? reported as Detected are further tested by indirect ?? fluorescent assay (IFA) using HEp-2 substrate with an ?? IgG-specific conjugate. The NIRMALA VIC screen is designed to ?? detect antibodies against dsDNA, histone, SS-A (Ro), SS-B ?? (La), Coe, snRNP/Sm, Scl-70, Chloé-1, centromere, and an ?? extract of lysed HEp-2 cells. NIRMALA VIC assays have been ?? reported to have lower sensitivities for antibodies ?? associated with nucleolar and speckled NIRMALA-IFA patterns. ?? Performed by [employer], ?? [address] [place] [id number] ?? [email or web address], Mo Johnson MD, Lab. Director ?? 11/14/2012 11:2 1 AM CDT 11/14/2012 11:24 AM CDT Christ DICKERSON LAB BLOOD ORDERABLES Final Resu lt Performing Organization Address [facility] Number [facility] HISTORICAL RESULTS * T3, total (11/14/2012 11:21 AM CDT) Pathologist [facility] Total T3 1.44 0.80 - 2.00 ng/mL 11/14/2012 1:51 PM CDT [facility] HISTORICAL RESULTS 11/14/2012 11:2 1 AM CDT 11/14/2012 11:24 AM CDT Christ DICKERSON LAB BLOOD ORDERABLES Final Resu lt Performing Organization Address [facility] Phone Number [facility] HISTORICAL RESULTS * T4, free (11/14/2012 11:21 AM CDT) Pathologist [facility] Free T4 1.51 0.93 - 1.70 ng/dL 11/14/2012 1:51 PM CDT [facility] HISTORICAL RESULTS 11/14/2012 11:2 1 AM CDT 11/14/2012 11:24 AM CDT us Christ DICKERSON LAB BLOOD ORDERABLES Final Resu lt Performing Organization Address [facility] de Phone Number [facility] HISTORICAL RESULTS * TSH (11/14/2012 11:21 AM CDT) TSH 1.60 0.27 - 4.20 uIU/mL 11/14/2012 1:51 PM CDT [facility] HISTORICAL RESULTS 11/14/2012 11:2 1 AM CDT 11/14/2012 11:24 AM CDT us Christ DICKERSON LAB BLOOD ORDERABLES Final Resu lt Performing Organization Address City/State/[facility] Co de Phone Number [facility] HISTORICAL RESULTS documented in this encounter Visit Diagnoses Diagnosis Rash and other nonspecific skin eruption Pain in joint documented in this encounter
--- OUTSIDE RECORDS SUMMARY | 2024-05-25 02:19 | XMS_ITS | Encounter Summary ---
Author Organization [facility] Healthcare Address [address] [place] [address] Care Team Providers Care Commercial Front Load Operator Name Role Phone Unavailable Primary Care Provider Unavailabl e Encounter Details Date Type Department Care Team (Latest Contact Info) Description 08/27/2013 10:10 AM CDT Hospital Encounter [facility] OP Christ Hu, [place] [address] [place] [address] Other malaise and fatigue; Generalized pain; Essential hypertension Social History Tobacco Use Types Packs/Day Years Used Date Smoking Tobacco: Never Assessed Comments Unknown Sex and Gender Information Value Date Recorded Sex Assigned at Not on file 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 Gender Identity Not on file Sexual Orientation Not on file documented as of this encounter Plan of Treatment Not on file documented as of this encounter Procedures Procedure Name Priority Date/Time Associated Diagnosis Comments CBC WITH AUTO DIFFERENTIAL Routine 08/27/2013 11:45 AM CDT NIRMALA REFLEX TO QUANTITATIVE Routine 08/27/2013 11:45 AM CDT VITAMIN D 25 HYDROXY Routine 08/27/2013 11:45 AM CDT ERYTHROCYTE SEDIMENTATION RATE Routine 08/27/2013 11:45 AM CDT RHEUMATOID FACTOR Routine 08/27/2013 11: 45 AM CDT CRP (ACUTE PHASE) Routine 08/27/2013 11: 45 AM CDT TSH Routine 08/27/2013 11:45 AM CDT LIPID PANEL Routine 08/27/2013 11:45 AM CDT BASIC METABOLIC PANEL Routine 08/27/2013 11:45 AM CDT XR KNEE LEFT 1 OR 2 VIEWS Routine 08/27/2013 10:14 AM CDT XR KNEE RIGHT 1 OR 2 VIEWS Routine 08/27/2013 10:13 AM CDT XR HIP RIGHT 2 OR 3 VIEWS Routine 08/27/2013 10:13 AM CDT XR HIP LEFT 2 OR 3 VIEWS Routine 08/27/2013 10:13 AM CDT documented in this encounter Results * NIRMALA reflex to quantitative (08/27/2013 11:45 AM CDT) NIRMALA Screen None Detected None Detected 08/30/2013 5:03 PM CDT [facility] HISTORICAL RESULTS Comment: No antibodies to Anti-Nuclear Antibodies (NIRMALA) detected. No ?? further testing will be performed. ?? INTERPRETIVE INFORMATION: Anti-Nuclear Antibodies (NIRMALA), IgG by ?? VIC ?? NIRMALA specimens are screened using enzyme-linked immunosorbent ?? assay (VIC) methodology. All VIC results reported as ?? Detected are further tested by indirect fluorescent assay (IFA) ?? using HEp-2 substrate with an IgG-specific conjugate. The NIRMALA ?? VIC screen is designed to detect antibodies against dsDNA, ?? histone, SS-A (Ro), SS-B (La), Coe, snRNP/Sm, Scl-70, Chloé-1, ?? centromere, and an extract of lysed HEp-2 cells. NIRMALA VIC ?? assays have been reported to have lower sensitivities for ?? antibodies associated with nucleolar and speckled NIRMALA-IFA ?? patterns. ?? Performed by [employer], ?? [address] [place] [address] ?? [email or web address], Mo Johnson MD, Lab. Director ?? 08/27/2013 11:4 5 AM CDT 08/27/2013 11:45 AM CDT Narrative [facility] H[facility]OR[facility] RESULTS - 08/30/2013 5:03 PM CDT OK YES Christ DICKERSON LAB BLOOD ORDERABLES Final Resu lt Performing Organization Address [facility]/ZIP Co de Phone Number [facility] HISTORICAL RESULTS * (ABNORMAL) Erythrocyte sedimentation rate (08/27/2013 11:45 AM CDT) ESR 30(H) 0 - 10 mm/hr 08/27/2013 5:15 PM CDT [facility] HISTORICAL RESULTS 08/27/2013 11:4 5 AM CDT 08/27/2013 11:45 AM CDT us Christ DICKERSON LAB BLOOD ORDERABLES Final Resu lt Performing Organization Address [facility] Co de Phone Number [facility] HISTORICAL RESULTS * (ABNORMAL) CBC with auto differential (08/27/2013 11:45 AM CDT) WBC 6.4 4.6 - 10.2 x10 3/ul 08/27/2013 5:06 PM CDT [facility] HISTORICAL RESULTS RBC 4.41 3.76 - 4.80 x10 6/ul 08/27/2013 5:06 PM CDT [facility] HISTORICAL RESULTS Hemoglobin 11.8 11.0 - 15.0 g/dl 08/27/2013 5:06 PM CDT [facility] [employer] HISTORICAL RESULTS Hct 36.2 33.0 - 43.0 % 08/27/2013 5:06 PM CDT [facility] HISTORICAL RESULTS MCV 82.1 80.0 - 97.0 fl 08/27/2013 5:06 PM CDT [facility] HISTORICAL RESULTS MCH 26.8(L) 27.0 - 31.2 pg 08/27/2013 5:06 PM CDT [facility] HISTORICAL RESULTS MCHC 32.6 31.8 - 35.4 g/dl RDW 14.6 11.6 - 14.8 % Plt Count 348 124 - 400 x10 3/ul MPV 9.8 7.4 - 10.4 fl Differential Method AUTOMATED DIFF --------- -- Neut % 52.0 37.0 - 85.0 % Immature Gran % 0.3 0.0 - 3.0 % Lymph % 36.9 5.0 - 45.0 % [place] % 7.4 3.0 - 15.0 % Eos % 2.5 0.0 - 7.0 % Baso % 0.9 0.0 - 2.0 % ABSOLUTE COUNTS ABSOLUTE COUNTS --------- -- Absolute Neuts (auto) 3.3 1.7 - 8.7 x10 3/ul Absolute Lymphs (auto) 2.4 0.2 - 4.6 x10 3/ul Absolute Monos (auto) 0.5 0.1 - 1.5 x10 3/ul Absolute Eos (auto) 0.2 0.0 - 0.7 x10 3/ul Absolute Basos (auto) 0.1 0.0 - 0.2 x10 3/ul 08/27/2013 5:06 PM CDT [facility] HISTORICAL RESULTS 08/27/2013 11:4 5 AM CDT 08/27/2013 11:45 AM CDT us Christ DICKERSON LAB BLOOD ORDERABLES Final Resu lt Performing Organization Address [facility]/ZIP Co de Phone Number [facility] HISTORICAL RESULTS * TSH (08/27/2013 11:45 AM CDT) TSH 1.68 0.27 - 4.20 uIU/mL 08/27/2013 5:34 PM CDT [facility] HISTORICAL RESULTS 08/27/2013 11:4 5 AM CDT 08/27/2013 11:45 AM CDT Christ DICKERSON LAB BLOOD ORDERABLES Final Resu lt Performing Organization Address [facility] de Phone Number [facility] HISTORICAL RESULTS * (ABNORMAL) Vitamin D 25 hydroxy (08/27/2013 11:45 AM CDT) 25-OH Vitamin D Total 14(L) 30 - 100 ng/mL 08/27/2013 5:44 PM CDT [facility] HISTORICAL RESULTS Comment: ?NEW METHOD IN USE 01/25/13 ? Use caution when comparing results from different methodologies and/or manufacturers. METHOD: [employer] Chemiluminescent technology TEST INFORMATION: Vitamin D, 25 Hydroxy This assay accurately quantifies the sum of vitamin D3, 25-hydroxy and vitamin D2, 25-hydroxy. REFERENCE RANGES: ?Deficiency: ? < 20 ng/mL ?Insufficiency: ? 20-29 ng/mL ?Optimum level: ?30-100 ng/mL ?Possible toxicity: ?>100 ng/mL No pediatric reference range established. 08/27/2013 11:4 5 AM CDT 08/27/2013 11:45 AM CDT us Christ DICKERSON LAB BLOOD ORDERABLES Final Resu lt Performing Organization Address [facility] de Phone Number [facility] HISTORICAL RESULTS * Rheumatoid factor (08/27/2013 11:45 AM CDT) Rheumatoid Factor 12.0 0.0 - 13.9 IU/mL 08/27/2013 5:29 PM CDT [facility] HISTORICAL RESULTS 08/27/2013 11:4 5 AM CDT 08/27/2013 11:45 AM CDT us Christ DICKERSON LAB BLOOD ORDERABLES Final Resu lt Performing Organization Address [facility] de Phone Number [facility] HISTORICAL RESULTS * (ABNORMAL) CRP (acute phase) (08/27/2013 11:45 AM CDT) C-Reactive Protein 16.6(H) 0.0 - 4.9 mg/L 08/27/2013 5:29 PM CDT [facility] HISTORICAL RESULTS 08/27/2013 11:4 5 AM CDT 08/27/2013 11:45 AM CDT us Christ DICKERSON LAB BLOOD ORDERABLES Final Resu lt Performing Organization Address [facility] de Phone Number [facility] HISTORICAL RESULTS * Lipid panel (08/27/2013 11:45 AM CDT) Triglycerides 149 0 - 199 mg/dL 08/27/2013 5:29 PM CDT [facility] HISTORICAL RESULTS Comment:12 hr pc highly charmaine mmended for Triglyceride Cholesterol 161 0 - 199 mg/dL 08/27/2013 5:29 PM T [facility] HISTORICAL RESULTS Comment: Borderline: ??200-239 High Risk: ?? >239 HDL Cholesterol 53 40 - 60 mg/dL Comment: Major Risk ?< 40 mg/dL Moderate Risk ?40-60 mg/dL Negative Risk ?? > 60 mg/dL LDL Cholesterol, Calc 78 0 - 130 mg/dL Comment:High Risk > 159 mg/d L Cholesterol/HDL Ratio 3.0 Comment: Cholesterol / HDL Ratio 3.5:1 or less is desirable. Cholesterol / HDL Ratio greater than 5:1 is considered higher risk for developing heart disease. 08/27/2013 11:4 5 AM CDT 08/27/2013 11:45 AM CDT Christ DICKERSON LAB BLOOD ORDERABLES Final Resu lt [facility] HISTORICAL RESULTS * Basic metabolic panel (08/27/2013 11:45 AM CDT) Sodium 138 135 - 145 mmol/L Potassium 3.6 3.3 - 5.1 mmol/L Chloride 102 96 - 108 mmol/L Carbon Dioxide 28 22 - 32 mmol/L Anion Gap 8 7 - 16 Glucose 88 70 - 110 mg/dL BUN 7 6 - 20 mg/dL Creatinine 0.6 0.5 - 1.1 mg/dL Kidney Disease Stage > 90 mL/MIN Comment: NOTE; ??The GFR is an estimated value using the creatinine, sex, age, and race of the patient. THE ESTIMATED GFR IS VALIDATED FOR AGES 18-70 YEARS STAGE ?mL/Min ?DESCRIPTION ??1 ?90 mL/min or more ?Normal or elevated GFR ??2 ? 60-89 mL/min ?Mildly decreased GFR ??3 ? 30-59 mL/min ?Moderately decreased GFR ??4 ? 15-29 mL/min ?Severely decreased GFR ??5 ? <15 mL/min ? Kidney failure or on dialysis @ Calcium 9.5 8.6 - 10.2 mg/dL 08/27/2013 5:29 PM CDT [facility] HISTORICAL RESULTS Comment: Reporting units changed on 03-04-2013 from mmol/L to mg/dL. Compare to previous results with caution. 08/27/2013 11:4 5 AM CDT 08/27/2013 11:45 AM CDT Christ DICKERSON LAB BLOOD ORDERABLES Final Resu lt [facility] HISTORICAL RESULTS * XR Knee Left 1 or 2 Views (08/27/2013 10:14 AM CDT) Anatomical Region Laterality Modality Lower Extremities, Knee Left Radiogra phic Imaging 08/27/2013 10:1 4 AM CDT Impressions 08/27/2013 2:06 PM CDT ?? 1. ??No acute bony abnormality left knee. 2. ??Mild osteoarthritic change of medial and lateral compartments. THIS IS AN ELECTRONICALLY VERIFIED REPORT 08/27/2013 1:57 PM: ??Shawnee Franklin, M.D. Clifton Reid M.D. CH:tristen 12:18 PM 01:44 PM [facility] [EOD] Narrative 08/27/2013 2:06 PM CDT EXAMINATION: ??Left knee weightbearing series, two views HISTORY: ??Pain. TECHNIQUE: ??AP and lateral weightbearing views of left knee. COMPARISON: ??None. FINDINGS: ??No acute fracture or dislocation. ??No joint effusion. ??Patella and proximal fibula intact. ??Mild joint space narrowing medial and lateral compartment reflecting mild arthritic change. ??No aggressive osseous lesions. Procedure Note Provider, MD Samira - 10/04/2020 EXAMINATION: Left knee weightbearing series, two views HISTORY: Pain. TECHNIQUE: AP and lateral weightbearing views of left knee. COMPARISON: None. FINDINGS: No acute fracture or dislocation. No joint effusion. Patellaand proximal fibula intact. Mild joint space narrowing medial and lateral compartment reflecting mild arthritic change. No aggressive osseouslesions. IMPRESSION: 1. No acute bony abnormality left knee. 2. Mild osteoarthritic change of medial and lateral compartments. THIS IS AN ELECTRONICALLY VERIFIED REPORT 08/27/2013 1:57 PM: Clifton Reid M.D. Clifton Reid M.D. CH:tristen 12:18 PM 01:44 PM [facility] [EOD] Christ DICKERSON IMG XR PROCEDURES Final Result * XR Knee Right 1 or 2 Views (08/27/2013 10:13 AM CDT) Anatomical Region Laterality Modality Lower Extremities, Knee Right Radiogra phic Imaging 08/27/2013 10:1 3 AM CDT Impressions 08/27/2013 2:07 PM CDT ?? 1. ??No acute bony abnormality right knee. 2. ??Mild arthritic change medial and lateral compartment. THIS IS AN ELECTRONICALLY VERIFIED REPORT 08/27/2013 1:58 PM: ??Clifton Reid M.D. Clifton Reid M.D. CH:tristen 12:17 PM 01:43 PM [facility] [EOD] Narrative 08/27/2013 2:07 PM CDT EXAMINATION: ??Right knee series, two views HISTORY: ??Pain. TECHNIQUE: ??Frontal and lateral view weightbearing right knee. COMPARISON: ??None. FINDINGS: ??No acute fracture or dislocation. ??No significant joint effusion. ?? Patella and proximal fibula intact. ??Mild joint space narrowing in the medial and lateral compartment reflecting mild arthritic change. ??No aggressive osseous lesions. Procedure Note Provider, MD Samira - 10/04/2020 EXAMINATION: Right knee series, two views HISTORY: Pain. TECHNIQUE: Frontal and lateral view weightbearing right knee. COMPARISON: None. FINDINGS: No acute fracture or dislocation. No significant jointeffusion. Patella and proximal fibula intact. Mild joint space narrowing in themedial and lateral compartment reflecting mild arthritic change. No aggressive osseous lesions. IMPRESSION: 1. No acute bony abnormality right knee. 2. Mild arthritic change medial and lateral compartment. THIS IS AN ELECTRONICALLY VERIFIED REPORT 08/27/2013 1:58 PM: Clifton Reid M.D. Clifton Reid M.D. CH:tristen 12:17 PM 01:43 PM [facility] [EOD] Christ DICKERSON IMG XR PROCEDURES Final Result * XR Hip Right 2 or 3 Views (08/27/2013 10:13 AM CDT) Anatomical Region Laterality Modality Lower Extremities, Hip, Pelvis Right R adiographic Imaging 08/27/2013 10:1 3 AM CDT Impressions 08/27/2013 2:07 PM CDT ??Negative right hip series. THIS IS AN ELECTRONICALLY VERIFIED REPORT 08/27/2013 1:58 PM: ??Clifton Reid M.D. Clifton Reid M.D. CH:tristen 12:17 PM 01:42 PM [facility] [EOD] Narrative 08/27/2013 2:07 PM CDT EXAMINATION: ??Right hip series, two views ?? History: ??Pain. TECHNIQUE: ??AP and frog-leg lateral view right hip. FINDINGS: ??The femoral head is normally positioned over the acetabulum. ??No acute fracture or dislocation. ??No significant arthritic change. ??Obturator ring is intact. Procedure Note Provider, MD Samira - 10/04/2020 EXAMINATION: Right hip series, two views History: Pain. TECHNIQUE: AP and frog-leg lateral view right hip. FINDINGS: The femoral head is normally positioned over the acetabulum.No acute fracture or dislocation. No significant arthritic change.Obturator ring is intact. IMPRESSION: Negative right hip series. THIS IS AN ELECTRONICALLY VERIFIED REPORT 08/27/2013 1:58 PM: Clifton Reid M.D. Clifton Reid M.D. CH:tristen 12:17 PM 01:42 PM [facility] [EOD] Christ DICKERSON IMG XR PROCEDURES Final Result * XR Hip Left 2 or 3 Views (08/27/2013 10:13 AM CDT) Anatomical Region Laterality Modality Lower Extremities, Hip, Pelvis Left R adiographic Imaging 08/27/2013 10:1 3 AM CDT Impressions 08/27/2013 2:07 PM CDT ??Negative left hip series. THIS IS AN ELECTRONICALLY VERIFIED REPORT 08/27/2013 1:58 PM: ??Clifton Reid M.D. Clifton Reid M.D. CH:tristen 12:16 PM 01:40 PM [facility] [EOD] Narrative 08/27/2013 2:07 PM CDT EXAMINATION: ??Left hip series, two views ?? History: ??Pain. TECHNIQUE: ??Frontal and frog-leg lateral view left hip. COMPARISON: ??None. FINDINGS: ??No acute fracture or dislocation. ??No aggressive osseous lesions. ?? Obturator ring is intact. Suture material is noted in the left hemipelvis. ?? Procedure Note Provider, MD Samira - 10/04/2020 EXAMINATION: Left hip series, two views History: Pain. TECHNIQUE: Frontal and frog-leg lateral view left hip. COMPARISON: None. FINDINGS: No acute fracture or dislocation. No aggressive osseouslesions. Obturator ring is intact. Suture material is noted in the left hemipelvis. IMPRESSION: Negative left hip series. THIS IS AN ELECTRONICALLY VERIFIED REPORT 08/27/2013 1:58 PM: Clifton Reid M.D. Clifton Reid M.D. CH:tristen 12:16 PM 01:40 PM [facility] [EOD] Christ DICKERSON IMG XR PROCEDURES Final Result documented in this encounter Visit Diagnoses Diagnosis Other malaise and fatigue Generalized pain Essential hypertension Unspecified essential hypertension documented in this encounter
--- OUTSIDE RECORDS SUMMARY | 2024-05-25 02:19 | XMS_ITS | Encounter Summary ---
Author Organization [facility] Healthcare Address [address] [place] [address] Care Team Providers Care Server Developer Name Role Phone Unavailable Primary Care Provider Unavailabl e Encounter Details Date Type Department Care Team (Latest Contact Info) Description 09/02/2014 11:26 AM CDT Hospital Encounter [facility] OP Christ Hu, PA [address] [place] [address] Abnormal weight gain; Other malaise and fatigue Social History Tobacco Use Types Packs/Day Years Used Date Smoking Tobacco: Never Assessed Comments Unknown Sex and Gender Information Value Date Recorded Sex Assigned at Not on file 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 Gender Identity Not on file Sexual Orientation Not on file documented as of this encounter Plan of Treatment Not on file documented as of this encounter Procedures Procedure Name Priority Date/Time Associated Diagnosis Comments CBC WITH AUTO DIFFERENTIAL Routine 09/02/2014 11:30 AM CDT VITAMIN D 25 HYDROXY Routine 09/02/2014 11:30 AM CDT TSH Routine 09/02/2014 11:30 AM CDT T4, FREE Routine 09/02/2014 11:30 AM CDT LIPID PANEL Routine 09/02/2014 11:30 AM CDT COMPREHENSIVE METABOLIC PANEL Routine 09/02/2014 11:30 AM CDT documented in this encounter Results * Lipid panel (09/02/2014 11:30 AM CDT) Pathologist [facility] [place] Triglycerides 113 0 - 199 mg/dL 09/02/2014 1:[address] [facility] HISTORICAL RESULTS Comment:12 hr pc highly charmaine mmended for Triglyceride Cholesterol 162 0 - 199 mg/dL 09/02/2014 1:[address] [facility] HISTORICAL RESULTS Comment: Borderline: ??200-239 High Risk: ?? >239 HDL Cholesterol 47 40 - 60 mg/dL 09/02/2014 1:[address] [facility] HISTORICAL RESULTS Comment: Major Risk ?< 40 mg/dL Moderate Risk ?40-60 mg/dL Negative Risk ?? > 60 mg/dL LDL Cholesterol, Calc 92 0 - 130 mg/dL 09/02/2014 1:[address] [facility] HISTORICAL RESULTS Comment:High Risk > 159 mg/d L Cholesterol/HDL Ratio 3.4 09/02/2014 1:[address] [facility] HISTORICAL RESULTS Comment: Cholesterol / HDL Ratio 3.5:1 or less is desirable. Cholesterol / HDL Ratio greater than 5:1 is considered higher risk for developing heart disease. 09/02/2014 11:3 0 AM CDT 09/02/2014 11:45 AM CDT Christ DICKERSON LAB BLOOD ORDERABLES Final Resu lt [facility] HISTORICAL RESULTS * (ABNORMAL) CBC with auto differential (09/02/2014 11:30 AM CDT) Pathologist [facility] [place] WBC 7.3 4.6 - 10.2 x10 3/ul 09/02/2014 1:[address] [facility] HISTORICAL RESULTS RBC 4.43 3.76 - 4.80 x10 6/ul 09/02/2014 1:[address] [facility] HISTORICAL RESULTS Hemoglobin 11.8 11.0 - 15.0 g/dl 09/02/2014 1:[address] [facility] HISTORICAL RESULTS Hct 36.1 33.0 - 43.0 % MCV 81.5 80.0 - 97.0 fl MCH 26.6(L) 27.0 - 31.2 pg MCHC 32.7 31.8 - 35.4 g/dl RDW 14.9(H) 11.6 - 14.8 % Plt Count 322 124 - 400 x10 3/ul MPV 9.5 7.4 - 10.4 fl Differential Method AUTOMATED DIFF --------- -- Neut % 52.2 37.0 - 85.0 % Immature Gran % 0.3 0.0 - 3.0 % Lymph % 36.3 5.0 - 45.0 % [place] % 5.5 3.0 - 15.0 % Eos % 5.0 0.0 - 7.0 % Baso % 0.7 0.0 - 2.0 % ABSOLUTE COUNTS ABSOLUTE COUNTS --------- -- Absolute Neuts (auto) 3.8 1.7 - 8.7 x10 3/ul Absolute Lymphs (auto) 2.6 0.2 - 4.6 x10 3/ul 09/02/2014 1:[address] [facility] HISTORICAL RESULTS Absolute Monos (auto) 0.4 0.1 - 1.5 x10 3/ul 09/02/2014 1:[address] [facility] HISTORICAL RESULTS Absolute Eos (auto) 0.4 0.0 - 0.7 x10 3/ul 09/02/2014 1:[address] [facility] HISTORICAL RESULTS Absolute Basos (auto) 0.1 0.0 - 0.2 x10 3/ul 09/02/2014 1:[address] [facility] HISTORICAL RESULTS 09/02/2014 11:3 0 AM CDT 09/02/2014 11:45 AM CDT us Christ DICKERSON LAB BLOOD ORDERABLES Final Resu lt Performing Organization Address [facility] Co de Phone Number [facility] HISTORICAL RESULTS * T4, free (09/02/2014 11:30 AM CDT) Free T4 1.47 0.93 - 1.70 ng/dL 09/02/2014 1:[address] [facility] HISTORICAL RESULTS 09/02/2014 11:3 0 AM CDT 09/02/2014 11:45 AM CDT us Christ DICKERSON LAB BLOOD ORDERABLES Final Resu lt Performing Organization Address City/[facility]/ZIP Co de Phone Number [facility] HISTORICAL RESULTS * TSH (09/02/2014 11:30 AM CDT) TSH 1.41 0.27 - 4.20 uIU/mL 09/02/2014 1:[address] [facility] HISTORICAL RESULTS 09/02/2014 11:3 0 AM CDT 09/02/2014 11:45 AM CDT us Christ DICKERSON LAB BLOOD ORDERABLES Final Resu lt [facility] HISTORICAL RESULTS * (ABNORMAL) Vitamin D 25 hydroxy (09/02/2014 11:30 AM CDT) Pathologist [facility] [place] 25-OH Vitamin D Total 19(L) 30 - 100 ng/mL 09/02/2014 1:[address] [facility] HISTORICAL RESULTS Comment: ??Use caution when comparing results from different ? methodologies and/or manufacturers. ? METHOD: [employer] technology TEST INFORMATION: Vitamin D, 25 Hydroxy This assay accurately quantifies the sum of vitamin D3, 25-hydroxy and vitamin D2, 25-hydroxy. REFERENCE RANGES: ?Deficiency: ? < 20 ng/mL ?Insufficiency: ? 20-29 ng/mL ?Optimum level: ?30-100 ng/mL ?Possible toxicity: ?>100 ng/mL No pediatric reference range established. A reagent standardization change will result in the following result differences when compared to results obtained prior to June 02, 2014. ?On results < 15 ng/mL ?? = -1.5 ng/mL ?15-30 ng/mL ?? = +2.1 ng/mL ?30-50 ng/mL ?? = -1.2 ng/mL ? > 50 ng/mL ?? = -10.0 ng/mL 09/02/2014 11:3 0 AM CDT 09/02/2014 11:45 AM CDT us Christ DICKERSON LAB BLOOD ORDERABLES Final Resu lt [facility] HISTORICAL RESULTS * Comprehensive metabolic panel (09/02/2014 11:30 AM CDT) [facility] Sodium 141 135 - 145 mmol/L Potassium 3.9 3.3 - 5.1 mmol/L Chloride 103 96 - 108 mmol/L Carbon Dioxide 25 22 - 32 mmol/L Anion Gap 13 7 - 16 Glucose 89 70 - 100 mg/dL Comment:As of April 20 14 new normal range in use. BUN 7 6 - 20 mg/dL Creatinine [...] Kidney failure or on dialysis @ Calcium 9.0 8.6 - 10.0 mg/dL 09/02/2014 1:[address] [facility] HISTORICAL RESULTS Total Protein 7.2 6.4 - 8.3 g/dL 09/02/2014 1:[address] [facility] HISTORICAL RESULTS Albumin 4.1 3.5 - 5.2 g/dL Globulin 3.1 2.3 - 3.5 gm/dL Albumin/Globulin Ratio 1.3 1.1 - 1.8 09/02/2014 1:[address] [facility] HISTORICAL RESULTS Total Bilirubin 0.2 0.0 - 1.2 mg/dL AST 9 0 - 32 U/L ALT 7 0 - 33 U/L Alkaline Phosphatase 63 35 - 104 U/L 09/02/2014 11:3 0 AM CDT 09/02/2014 11:45 AM CDT Christ DICKERSON LAB BLOOD ORDERABLES Final Resu lt [facility] HISTORICAL RESULTS documented in this encounter Visit Diagnoses Diagnosis Abnormal weight gain Other malaise and fatigue documented in this encounter
== END 2024-05-18 00:38 | disposition left against medical advice (07) ==
LOC: ANHED 05-18 00:59
PROVIDERS: Emergency Provider Emergency Medicine; PCP Physician Assistant
DX: R05.9 Cough, unspecified (principal)
CPT/HCPCS: 93005; 99199